=== PATIENT | male | born 1940 | race Caucasian/White ===

== ENCOUNTER 2018-12-03 08:05 | Observation (INO) | payer OTHER, SELFPAY ==
[2018-12-03] VITALS (11 sets, daily range): BP systolic 146–184; BP diastolic 75–95; PULSE 58–84; RESP 12–20; TEMP 36.5–37.2; O2SAT 96–100; BMI 20.7
--- NOTE | 2018-12-03 08:29 | ED.ABDPAIN ---
HPI - Abdominal Pain General Chief Complaint: Abdominal Pain Stated Complaint: LLQ abd pain/back pain today Time Seen by Provider: 12/03/18 08:29 Source: patient and family Limitations: no limitations History of Present Illness HPI narrative: This is a 78-year-old male comes emergency department with sudden onset of left lower quadrant and flank pain. Patient states he was on his morning walk about 5:00 a.m. this morning when he noticed pain in his left lower quadrant. No radiating to the left flank. He states it was pretty quick onset, it has been constant maybe a little bit of waxing and waning but mostly a constant pain at 7-8. Patient states he tried sitting and lying down but that did not improve his symptoms. Walking actually helped a little bit but only minimally. Patient has not any had any fevers or chills. He felt a little nauseated at home but no vomiting. He states he has not had a bowel movement 2 or 3 days but he typically goes to the bathroom every 2-3 days. He typically has chronic constipation. He is denying passing any gas currently. He does not feel distended. Patient has not noticed any issues with urination, no hematuria, color changes, frequency or urgency or dysuria. Patient does have no Parkinson's, he takes carbidopa levodopa, clonazepam as well as residual eating. He has had Botox. 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 By his description it sounds like they took a portion of the kidney out. He denies any other prior surgeries. Allergic to tetracyclines. Denies any tobacco, occasional alcohol, no illicit his primary care is Dr. Mata and his neurologist is Dr. Ng. Related Data Home Medications Medication Instructions Recorded Confirmed multivitamin 1 cap PO DAILY #0 08/01/06 12/03/18 ascorbic acid (vitamin C) [Vitamin 500 mg PO DAILY 12/03/18 12/03/18 C] carbidopa-levodopa 1 tab PO QID 12/03/18 12/03/18 clonazepam 0.5 mg PO QPM 12/03/18 12/03/18 rasagiline 1 mg PO DAILY 12/03/18 12/03/18 Allergies Allergy/AdvReac Type Severity Reaction Status Date / Time Tetracyclines Allergy Unknown Verified 12/03/18 16:26 Review of Systems Review of Systems ROS Unobtainable: All systems reviewed & are unremarkable except as noted in HPI and below Constitutional Denies chills, Denies fever(s), Denies lethargy and Denies weakness Gastrointestinal Gastrointestinal: Reports abdominal pain (LLQ), Denies melena, Denies hematochezia, Denies change in bowel habits, Reports constipation, Denies cramping, Denies diarrhea, Reports nausea and Denies vomiting Genitourinary Reports as per HPI, Denies hematuria, Denies difficulty urinating, Reports flank pain (left), Denies urinary frequency, Denies urinary hesitancy, Denies urinary incontinence and Denies urinary urgency Musculoskeletal Denies back pain Neurologic Denies weakness [facility] Medical History (Updated 12/03/18 @ 13:03 by Francheska Ford DO) Parkinson disease (Chronic) Surgical History (Updated 12/03/18 @ 08:43 by Francheska Ford DO) History of kidney surgery (Chronic) Social History (Updated 12/03/18 @ 08:43 by Francheska Ford DO) household members: spouse Smoking Status: Former smoker alcohol intake: current substance use type: does not use Social History (Updated 12/03/18 @ 08:43 by Francheska Ford DO) household members: spouse Smoking Status: Former smoker alcohol intake: current substance use type: does not use Exam Narrative Exam Narrative: GENERAL: Alert and oriented x three, then elderly male in mild distress. HEENT: Head normocephalic, atraumatic, EOMI, pupils reactive, face symmetric, moist mucous membranes NECK: Supple, full range of motion CARDIOVASCULAR: Regular rate and rhythm without murmurs, rubs or gallops. RESPIRATORY: Breath sounds equal bilaterally, no wheezes rales or rhonchi. ABDOMEN: Soft, nontender. Nondistended. Normoactive bowel sounds all 4 quadrants. No guarding or rebound, rigidity, no mass. On rectal exam no BRB, no stool noted on exam. : No CVA tenderness EXTREMITIES: Normal range of motion, no clubbing or edema. Neurovascularly intact NEUROLOGICAL: Cranial nerves II through XII grossly intact. Moving all extremities. Patient has mild tremor of upper extremities noted. SKIN: Warm, dry, no petechiae, no rashes or lesions. Initial Vital Signs Initial Vital Signs: Vital Signs Temperature 97.7 F 12/03/18 08:25 Pulse Rate 67 12/03/18 08:25 Respiratory Rate 15 12/03/18 08:25 Blood Pressure 176/82 H 12/03/18 08:25 Pulse Oximetry 100 12/03/18 08:25 Course Orders Ordered: ED Orders 12/03/18 17:37 Consult to Dietitian, Adult Routine Sodium Chloride (Normal Saline 0.9%) 1,000 mls @ 150 mls/hr IV CONT ROSA Last Infusion: 12/03/18 17:08 Dose: 150 mls/hr Admin: 12/03/18 14:15 Dose: 150 mls/hr Discontinued Medications Sodium Chloride (Normal Saline 0.9%) 1,000 mls @ 1,000 mls/hr IV BOLUS ONE Stop: 12/03/18 09:37 Last Infusion: 12/03/18 10:56 Dose: 0 mls/hr Admin: 12/03/18 09:47 Dose: 1,000 mls/hr Ketorolac Tromethamine (Toradol) 15 mg IV NOW ONE Stop: 12/03/18 08:39 Last Admin: 12/03/18 09:46 Dose: 15 mg Magnesium Citrate (Magnesium Citrate) 300 ml PO NOW ONE Stop: 12/03/18 12:53 Last Admin: 12/03/18 12:58 Dose: 300 ml Mineral Oil (Mineral Oil Enema) [address] NOW ONE Stop: 12/03/18 11:22 Last Admin: 12/03/18 11:51 Dose: 1 each Morphine Sulfate (Morphine) 4 mg IV NOW ONE Stop: 12/03/18 09:34 Last Admin: 12/03/18 09:46 Dose: 4 mg Morphine Sulfate (Morphine) 4 mg IV NOW ONE Stop: 12/03/18 10:22 Last Admin: 12/03/18 10:27 Dose: 4 mg Morphine Sulfate (Morphine) 4 mg IV NOW ONE Stop: 12/03/18 12:53 Last Admin: 12/03/18 12:58 Dose: 4 mg Ondansetron HCl (Zofran) 4 mg IV NOW ONE Stop: 12/03/18 09:20 Last Admin: 12/03/18 09:46 Dose: 4 mg Sennosides (Senna) 17.2 mg PO NOW ONE Stop: 12/03/18 13:39 Last Admin: 12/03/18 14:25 Dose: 17.2 mg Vital Signs - 8 hr 12/03/18 11:41 12/03/18 12:32 12/03/18 14:34 Pulse Rate 65 60 84 Respiratory Rate 12 13 20 Blood Pressure [Left Arm] 150/78 H 168/79 H 169/89 H Pulse Oximetry 100 100 96 12/03/18 16:14 Pulse Rate 76 Respiratory Rate 14 Blood Pressure [Left Arm] 164/95 H Pulse Oximetry 100 MDM - Abdominal Pain Lab Data Attestation: I reviewed the patient's lab results. Result diagrams: 12/03/18 09:17 12/03/18 10:08 Lab Results 12/03/18 12/03/18 Range/Units 09:17 10:08 WBC 5.9 (4.5-11.0) X10^3/uL RBC 4.08 L (4.5-5.9) X10^6/uL Hgb 13.2 L (13.5-17.5) g/dL Hct 38.9 L (41-53) % MCV 95.4 (80-100) fL MCH 32.5 (26-34) PG MCHC 34.1 (30-36) % RDW 13.1 (11.6-14.8) % Plt Count 266 (150-400) X10^3/uL Neut % (Auto) 72.6 (50-75) % Lymph % (Auto) 14.9 L (25-40) % [place] % (Auto) 8.1 (3-14) % Eos % (Auto) 3.7 (2-4) % Baso % (Auto) 0.7 (0-2) % Neut # (Auto) 4300 (9486-0477) /uL Lymph # (Auto) 900 L (2287-0002) /uL [place] # (Auto) 500 (0-900) /uL Eos # (Auto) 200 (0-450) /uL Baso # (Auto) 0 (0-100) /uL Sodium 141 (137-145) mmol/L Potassium 4.3 (3.4-5.1) mmol/L Chloride 104 (98-107) mmol/L Carbon Dioxide 27 (22-32) mmol/L BUN 18 (9-20) mg/dL Creatinine 0.70 (0.66-1.25) mg/dL Estimated GFR > 60.0 (>60) mL/min BUN/Creatinine Ratio 25.7 H (6-22) Glucose 145 H (80-110) mg/dL Calcium 9.3 (8.4-10.2) mg/dL Total Bilirubin 0.6 (0.2-1.3) mg/dL AST 28 (17-59) IU/L ALT 15 L (21-72) IU/L Alkaline Phosphatase 80 (38-126) U/L Total Protein 7.2 (6.3-8.2) g/dL Albumin 4.0 (3.5-5.0) g/dL Globulin 3.2 (1.7-4.1) g/dL Albumin/Globulin Ratio 1.3 (1.0-2.8) Lipase 13 L (23-300) U/L Imaging Data CT scan - abdomen: Radiologist's impression: [place] [address] CT Scan Report Signed Patient: Christian Sena LMR#: [id number] : 2Acct:[id number] Age/Sex: 78 / MDate of Service: 12/03/18 Loc: ED Accession Number: [id number] Procedure: CT kidney ureter bladder (KUB) Ordering Provider: Francheska Ford D.O. PROCEDURE: CT KIDNEY URETER BLADDER (KUB) INDICATIONS: LLQ and Left flank pain sudden onset, hx of kidney sx remote TECHNIQUE: Noncontrast 5 mm thick sections acquired from the diaphragms to the symphysis. 5 mm thick coronal and sagittal reformats were then performed. For radiation dose reduction, the following was used: automated exposure control, adjustment of mA and/or kV according to patient size. COMPARISON: None. FINDINGS: Image quality: Excellent. Lung bases: Lung bases are clear except for a small scattered foci of calcific radiodensity in the left lower lobe just above the diaphragm, possibly old granulomatous disease sequela or even aspiration of barium from the distant past.. Heart size is normal. Urinary system: Both kidneys are normal in size. No kidney stones. No hydronephrosis or perinephric fat stranding. On the left there are several small peripelvic cysts. Both ureters appear non-dilated throughout their expected courses. Bladder wall thickness is normal; no calcified bladder stones. Other solid organs: Liver is normal in size. Gallbladder appears normal. Pancreas is normal in contours. Spleen is normal in size. No adrenal nodules. Peritoneum and bowel: Unenhanced bowel loops demonstrate normal wall thickness and caliber. No free fluid or air. Note is made of mild to moderate colonic obstipation. Nodes and vessels: No retroperitoneal or mesenteric adenopathy by size criteria. Aorta and inferior vena cava are normal in caliber. Abdominal wall: No ventral hernias. Pelvis: No free pelvic fluid. No inguinal hernias or adenopathy. Bones: No suspicious bony lesions. No vertebral body compression fractures. IMPRESSION: No urinary tract stone is seen. No hydronephrosis or nephrolithiasis is found. Several small peripelvic cysts are present at the left renal sinus fat. Incidental mode is made of mild to moderate colonic obstipation. Dictated by: Kiran Serna M.D. on 12/03/2018 at 9:19 Approved by: Kiran Serna M.D. on 12/03/2018 at 9:25 MDM Narrative Medical decision making narrative: Patient comes in with acute lower abdominal pain that is now towards his flank. Patient states that pain was not improved with Toradol, had some improvement with morphine x2 doses but was present and started returning. We did do an enema which was not successful and discussed trying some magnesium citrate. Patient did have emesis initially here in the department. Patient's CT scan does show obstipation, lab work showed a mild anemia which appears close to baseline as well as glucose 145. Patient has not given a urine sample thus far. On rectal exam I was not able to palpate any stool and patient has had difficulty with controlling his pain. According to him and his he did actually have an episode that required hospitalization with multiple enemas and then had episode where he and finally had a bowel movement. He has had issues with constipation which is likely related to autonomic dysfunction with his Parkinson's disease. I spoke with a Dr. Lake the hospitalist, who asks for Senna po in department, patient just received magnesium citrate if he is not able to have a bowel movement after several hours she will admit for obstipation. Discharge Plan Departure Patient Disposition: Admitted as Observation Clinical Impression: Abdominal pain, Obstipation Discharge Date/Time: 12/03/18 17:17 Interventions: ED Discharge Assessment Last Done: 12/03/18 17:09 Referrals: Joel Mata MD [Primary Care Provider] - Admit Date/Time: 12/03/18 16:20 Admit Provider: Cathy Lake
--- NOTE | 2018-12-03 08:48 | DI.CT.S_ITS ---
PROCEDURE: CT KIDNEY URETER BLADDER (KUB) INDICATIONS: LLQ and Left flank pain sudden onset, hx of kidney sx remote TECHNIQUE: Noncontrast 5 mm thick sections acquired from the diaphragms to the symphysis. 5 mm thick coronal and sagittal reformats were then performed. For radiation dose reduction, the following was used: automated exposure control, adjustment of mA and/or kV according to patient size. COMPARISON: None. FINDINGS: Image quality: Excellent. Lung bases: Lung bases are clear except for a small scattered foci of calcific radiodensity in the left lower lobe just above the diaphragm, possibly old granulomatous disease sequela or even aspiration of barium from the distant past.. Heart size is normal. Urinary system: Both kidneys are normal in size. No kidney stones. No hydronephrosis or perinephric fat stranding. On the left there are several small peripelvic cysts. Both ureters appear non-dilated throughout their expected courses. Bladder wall thickness is normal; no calcified bladder stones. Other solid organs: Liver is normal in size. Gallbladder appears normal. Pancreas is normal in contours. Spleen is normal in size. No adrenal nodules. Peritoneum and bowel: Unenhanced bowel loops demonstrate normal wall thickness and caliber. No free fluid or air. Note is made of mild to moderate colonic obstipation. Nodes and vessels: No retroperitoneal or mesenteric adenopathy by size criteria. Aorta and inferior vena cava are normal in caliber. Abdominal wall: No ventral hernias. Pelvis: No free pelvic fluid. No inguinal hernias or adenopathy. Bones: No suspicious bony lesions. No vertebral body compression fractures. IMPRESSION: No urinary tract stone is seen. No hydronephrosis or nephrolithiasis is found. Several small peripelvic cysts are present at the left renal sinus fat. Incidental mode is made of mild to moderate colonic obstipation. Dictated by: Kiran Serna M.D. on 12/03/2018 at 9:19 Approved by: Kiran Serna M.D. on 12/03/2018 at 9:25
[2018-12-03 09:32] LABS: Add Manual Diff / Slide Review NO; Basophils Absolute Auto 0 /uL (0-100); Basophils Percent Auto 0.7 % (0-2); Eosinophils Absolute Auto 200 /uL (0-450); Eosinophils Percent Auto 3.7 % (2-4); Hematocrit 38.9 % (41-53); Hemoglobin 13.2 g/dL (13.5-17.5); Lymphocytes Absolute Auto 900 /uL (1100-4500); Lymphocytes Percent Auto 14.9 % (25-40); Mean Corpuscular HGB Conc 34.1 % (30-36); Mean Corpuscular Hemoglobin 32.5 PG (26-34); Mean Corpuscular Volume 95.4 fL (80-100); Monocytes Absolute Auto 500 /uL (0-900); Monocytes Percent Auto 8.1 % (3-14); Neutrophils Absolute Auto 4300 /uL (1500-7000); Neutrophils Percent Auto 72.6 % (50-75); Platelet Count 266 X10^3/uL (150-400); Red Blood Cell Count 4.08 X10^6/uL (4.5-5.9); Red Cell Distribution Width 13.1 % (11.6-14.8); White Blood Cell Count 5.9 X10^3/uL (4.5-11.0)
[2018-12-03] MEDS: KETOROLAC 60 MG/2 ML VIAL 15 MG IV (09:46)
[2018-12-03] MEDS: MORPHINE 4 MG/ML INJ IV ×3 (09:46→12:58)
[2018-12-03] MEDS: ONDANSETRON 4 MG/2 ML INJ IV (09:46)
[2018-12-03] MEDS: SODIUM CHLORIDE 0.9% 1,000 ML 1000 ML IV (09:47)
[2018-12-03 10:27] LABS: Alanine Aminotransferase 15 IU/L (21-72); Albumin Globulin Ratio 1.3 (1.0-2.8); Alkaline Phosphatase 80 U/L (38-126); Aspartate Aminotransferase 28 IU/L (17-59); BUN Creatinine Ratio 25.7 (6-22); Bilirubin Total 0.6 mg/dL (0.2-1.3); Blood Urea Nitrogen 18 mg/dL (9-20); Calcium 9.3 mg/dL (8.4-10.2); Carbon Dioxide 27 mmol/L (22-32); Chloride 104 mmol/L (98-107); Estimated Glomerular Filt Rate > 60.0 mL/min (>60); Globulin 3.2 g/dL (1.7-4.1); Glucose 145 mg/dL (80-110); HEMOLYSIS < 15 (0-50); Lipase 13 U/L (23-300); Potassium 4.3 mmol/L (3.4-5.1); Sodium 141 mmol/L (137-145); Total Protein 7.2 g/dL (6.3-8.2)
[2018-12-03] MEDS: MINERAL OIL 1 EACH ENEMA PR (11:51)
[2018-12-03] MEDS: MAGNESIUM CITRATE 300 ML SOLUTION PO (12:58)
[2018-12-03] MEDS: SODIUM CHLORIDE 0.9% 1,000 ML 150 ML IV ×2 (14:15→21:57)
[2018-12-03] MEDS: SENNOSIDES 8.6 MG TABLET 17.2 MG PO (14:25)
--- NOTE | 2018-12-03 17:47 | PC.NURSE ---
Addendum entered by Nella Abbott R.N. 12/03/18 22:33: LITO Beck in to see patient. Pt provided with clear liquids as per verbal order. Dulcolax suppository inserted with brief digital stim as per LITO Beck's verbal order. No stool felt in rectum. Active bowel tones. Pt positions self in bed without difficulty. Tylenol and toradol to manage back and abdominal pain 5/10. No further c/o nausea. Addendum entered by Nella Abbott R.N. 12/03/18 21:26: Discussion with PIER HAND to inform pt has not had any results with 500 cc's soap suds enema. Pt desires hs med clonazepam. Verbal order obtained for sleep med as well as suppository. Plan per LITO Beck is to let all interventions just set and see if result is forthcoming. Addendum entered by Nella Abbott R.N. 12/03/18 21:04: No stool. No further emeis. Resting quietly in bed with eyes closed without signs of distress or discomfort. Addendum entered by Nella Abbott R.N. 12/03/18 20:10: Pt reports beginning to feel stirring in rectum/colon. Offered to assist pt to commode and pt reports prefers to wait a few more minutes. Addendum entered by Nella Abbott R.N. 12/03/18 19:51: Pt with 100 cc's bileous emesis. Pt's now present in room. Both parties express desire for some intervention to treat pt's symptoms. This selling underwriter approached hospitalist to inquire about treatment for LLQ pain. Verbal order by Dr. Lake to administer soaps suds enema. This was explained to pt and pt's spouse. Pt on left side in bed and slowly administered approximately 500 cc's castile soap warm water enema. Pt denies feeling any fullness or need to evacuate bowels. This selling underwriter stopped procedure and will discuss with hospitalist when pt is seen this evening shift. Warm blankets to LLQ. Awaiting further orders and provider to see pt. Original Note: Pt to room 228 from E.R. awake, alert, conversant. Parkinsonian tremors present to hands BL. IV fluids infusing to left forearm as per E.R. Pt admits to LLQ pain 3/10 and sense of fullness to abdomen, Like I ate a turkey dinner. Admits to occasional fleeting nausea. Head of bed elevated. Oriented to call light and to fall precautions while in the hospital. Pt anticipates spouse to arrive @ 1830. Awaiting further orders by Dr. Lake.
--- NOTE | 2018-12-03 21:43 | P.HP_ITS ---
History of Present Illness Date Patient Seen: 12/03/18 Time Patient Seen: 21:43 Chief complaint: llq abd pain/back pain today Narrative: Mr. Christian Fisher is an 78-year-old male with a history of Parkinson's disease and chronic constipation who presents today with abdominal pain and obstipation. The patient has a history of constipation secondary to his Parkinson's disease and states he typically will have bowel movements every 3 days. He states when he does pass stool that it presents as hard balls. He states that he has not had a bowel movement for 3 days and developed abdominal pain this morning as he went for his usual morning walk. He had associated nausea but denies fevers or chills, orthostasis, difficulty urinating, hematuria or or bleeding per rectum. Upon returning from his walk he told his he had to go to the ER due to the abdominal pain. Describes it as sharp and achy in the left lower quadrant radiating to the left flank. Nothing seems to make it better or worse. He otherwise describes no recent illness or other complaints of pain. He has no chest pain or palpitations, shortness of breath cough or wheezing. Upon arrival in the ER the patient was afebrile with temperature 97.7?, heart rate of 67, blood pressure 176/82, respirations of 15 saturating 100% on room air. He underwent CT exam which found no kidney or ureteral stones, no hydrone phrosis, normal bowel wall without signs of inflammation, free air or fluid. It does note mild to moderate constipation. Laboratory analysis has a negative white count at 5.9, hemoglobin of 13.2, hematocrit of 38.9, platelets of 266. His electrolytes are all within normal limits and he has a BUN of 18 and creatinine is 0.7. In the ER the patient received a mineral oil enema and Dulcolax suppository as well as multiple doses of morphine for pain. The patient is admitted to the hospital for continuing abdominal pain secondary to obstipation. Patient History Medical History (Updated 12/04/18 @ 03:44 by LITO Wallace) Chronic constipation (Acute) Parkinson disease (Chronic) Surgical History (Updated 12/04/18 @ 03:44 by LITO Wallace) History of appendectomy (Acute) History of ear surgery (Acute) History of knee surgery (Acute) History of kidney surgery (Chronic) Social History (Updated 12/03/18 @ 08:43 by Francheska Ford DO) household members: spouse Smoking Status: Former smoker alcohol intake: current substance use type: does not use Family & Social History Social History: household members spouse Prior Living Arrangements House Safety & Behavioral: Feels Safe in Current Yes Environment Been Physically Hurt or No Threatened By a Person Suicidal Ideation Description None Suicide Plan Description No Plan Tobacco & Substance use: Smoking Status Former smoker alcohol intake current alcohol intake frequency a few times a week Substance Use Type does not use Comment: The patient lives in a single family home with his to whom he has been for 57 years. His father at the age 92 with a history of coronary artery disease, CABG and valve replacement. His mother in 1977 from a motor vehicle accident. He has a half brother and half sister and 2 kids he describes as in good health. 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 Smoking: The patient has never smoked. Alcohol: Patient endorses 1-2 beers per week. Substance use: The patient denies recreation pharmaceuticals her, herbal or cannabis products. Advanced directives: Patient states he does have an advanced directive and he states his desired to be DO NOT RESUSCITATE. He designates his Roxana to be his surrogate decision maker. Meds Home Medications Medication Instructions Recorded Confirmed Type multivitamin 1 cap PO DAILY #0 08/01/06 12/03/18 History ascorbic acid (vitamin C) [Vitamin 500 mg PO DAILY 12/03/18 12/03/18 History C] carbidopa-levodopa 1 tab PO QID 12/03/18 12/03/18 History clonazepam 0.5 mg PO QPM 12/03/18 12/03/18 History rasagiline 1 mg PO DAILY 12/03/18 12/03/18 History Allergies Allergy/AdvReac Type Severity Reaction Status Date / Time Tetracyclines Allergy Unknown Verified 12/03/18 16:26 Review of Systems Review of Systems All systems reviewed & are unremarkable except as noted in HPI and below Exam Vital Signs (past 8 hours): - 12/03/18 14:34 12/03/18 16:14 12/03/18 20:10 Temperature 98.9 F Pulse Rate 84 76 63 Respiratory Rate 20 14 18 Blood Pressure 167/75 H Blood Pressure [Left Arm] 169/89 H 164/95 H Pulse Oximetry 96 100 100 Oxygen Delivery Method Room Air Narrative Exam Narrative: GENERAL APPEARANCE: well developed, well nourished, uncomfortable appearing HEAD: Masked facies, atraumatic. EYES: pupils equal, round, reactive to light and accommodation, sclera non-ic teric, extraocular movement intact without nystagmus. EARS: normal external structures, no ear pain NOSE: sinuses non tender to percussion, no rhinorrhea ORAL CAVITY: mucosa moist without lesions, palate normal, tongue in midline. THROAT: normal, no erythema, no exudate, posterior pharynx normal. NECK/THYROID: neck supple, no jugular venous distention, no carotid bruit, no thyromegaly, trachea midline. LYMPH NODES: no cervical or supraclavicular lymphadenopathy. SKIN: warm and dry, no suspicious lesions, no rashes, good turgor. HEART: regular rate and rhythm, S1-S2 without murmur, no rubs or gallops, brisk capillary refill, no edema LUNGS: clear to auscultation bilaterally, no coarseness crackles or wheezing, no cough present CHEST: Symmetrical movement, good tidal volume, no accessory muscle use. ABDOMEN: Firm, distended, generalized tenderness to palpation, greatest left lower quadrant, no guarding or peritoneal signs, no organomegaly, no flank or suprapubic tenderness, hyperactive bowel tones. BACK: Normal curvature, nontender to palpation, no CVA tenderness on percussion EXTREMITIES: Moves all extremities strength is 5/5 and symmetrical, no deformities or joint effusions. NEUROLOGIC: AAO x4, bradykinesia, cranial nerves II-XII grossly intact , slower speech, tremors bilateral upper extremities left greater than right, motor strength normal upper and lower extremities, sensory exam intact to light touch PSYCH: alert, cognitive function intact, good eye contact, appropriate with stable behavior Objective Labs Result Diagrams: 12/03/18 09:17 12/03/18 10:08 Labs: Laboratory Results - last 24 hr 12/03/18 12/03/18 09:17 10:08 WBC 5.9 RBC 4.08 L Hgb 13.2 L Hct 38.9 L MCV 95.4 MCH 32.5 MCHC 34.1 RDW 13.1 Plt Count 266 Neut % (Auto) 72.6 Lymph % (Auto) 14.9 L [place] % (Auto) 8.1 Eos % (Auto) 3.7 Baso % (Auto) 0.7 Neut # (Auto) 4300 Lymph # (Auto) 900 L [place] # (Auto) 500 Eos # (Auto) 200 Baso # (Auto) 0 Sodium 141 Potassium 4.3 Chloride 104 Carbon Dioxide 27 BUN 18 Creatinine 0.70 Estimated GFR > 60.0 BUN/Creatinine Ratio 25.7 H Glucose 145 H Calcium 9.3 Total Bilirubin 0.6 AST 28 ALT 15 L Alkaline Phosphatase 80 Total Protein 7.2 Albumin 4.0 Globulin 3.2 Albumin/Globulin Ratio 1.3 Lipase 13 L Assessment & Plan Assessment & Plan narrative: This is a 78-year-old male with history of Parkinson's and chronic constipation who presents with abdominal pain secondary to obstipation failing treatment with enema and laxatives in the emergency dep artment. 1. Acute abdominal pain, present on admission. -onset of pain was this morning while walking, left lower quadrant radiating to left flank, associated nausea without vomiting, no BM for 3 days (his usual pattern). -CT exam finds no renal complication of kidney or ureteral stone, no hydronep hrosis nephrosis, no bowel obstruction or inflammation, no free air or fluid, mild to moderate constipation noted. -in the ER the patient was hydrated with normal saline, received Toradol IV, Mag citrate, mineral oil enema, senna p.o., 3 doses of morphine 4 mg each, Zofran for nausea. -will continue hydration with normal saline S the patient was dehydrated the BUN creatinine ratio 25.7. -soap suds enema ordered, docusate 100 mg twice daily, Doculax suppository if no production from enema with digital stimulation. -will avoid opiates to prevent further suppression of gastric motility. 2. Chronic Parkinson's disease, stable. -patient is quite functional and ambulates daily and reports no falls. He manifests masked face ease and tremors but has no evidence of impaired swallowing. -continue patient's home medication of carbidopa levodopa 4 times daily and rasagiline 1 mg daily. The patient is admitted to the hospital related to persistent abdominal pain and constipation refractory to enema and multiple laxatives. The patient is admitted as observation with expected length of stay to be less than 2 midnights. Scores GCS Isael coma scale eye opening: Spontaneous [place] coma scale verbal response: Orientated [place] coma scale motor response: Obey commands Isael coma scale total score: 15 Quality VTE Deep Vein Thrombosis/Pulmonary Embolism Present on Admission: No
[2018-12-03] MEDS: BISACODYL 10 MG SUPP PR (21:58)
[2018-12-03] MEDS: clonazePAM 0.5 MG TABLET PO (21:58)
[2018-12-03] MEDS: ACETAMINOPHEN 325 MG TABLET 975 MG PO (21:58)
[2018-12-03] MEDS: CARBIDOPA-LEVODOPA 25/100 TABLET 1 EACH PO (22:18)
[2018-12-03] MEDS: KETOROLAC 30 MG/ML VIAL IV (22:19)
[2018-12-03 22:36] LABS: Bacteria Urine None Seen; RBC Urine None Seen (0-5/HPF)
[2018-12-03 22:38] LABS: Appearance Urine UA CLEAR; Bilirubin Urine UA NEGATIVE (NEGATIVE); Color Urine UA YELLOW; Glucose Urine UA NEGATIVE (Negative); Ketones Urine UA NEGATIVE (NEGATIVE); Leukocyte Esterase Urine UA NEGATIVE (NEGATIVE); Nitrite Urine UA NEGATIVE (Negative); Occult Blood Urine UA NEGATIVE (Negative); Protein Urine UA NEGATIVE (Negative); Urobilinogen Urine UA 0.2 E.U./dL (0.2); pH Urine UA 6.5 (4.5-8.0)
[2018-12-03 22:47] LABS: Culture Indicated Urine Cult Not Indicated; Mucus Urine 2+ (Negative); Squamous Epithelial Cell Urine 0-1 /HPF (0-5/HPF); WBC Urine 0-1/HPF (0-5/HPF)
[2018-12-04 00:10] VITALS: O2SAT 97
--- NOTE | 2018-12-04 01:24 | PC.NURSE ---
City Clerk Note: 0030: Awake, resting in bed. Vital signs stable. IV in place in lt forearm, with NS infusing at 150cc/hr. Assisted up to bathroom, had moderate formed stool with some liquid stool. Pt is alert, oriented X3.
[2018-12-04 04:40] VITALS: BP 140/76; PULSE 70; RESP 16; TEMP 37.1; O2SAT 98
[2018-12-04] MEDS: SODIUM CHLORIDE 0.9% 1,000 ML 150 ML IV (04:43)
[2018-12-04] MEDS: KETOROLAC 30 MG/ML VIAL IV (05:37)
[2018-12-04 05:42] LABS: Add Manual Diff / Slide Review NO; Basophils Absolute Auto 0 /uL (0-100); Basophils Percent Auto 0.3 % (0-2); Eosinophils Absolute Auto 0 /uL (0-450); Hematocrit 37.7 % (41-53); Hemoglobin 13.1 g/dL (13.5-17.5); Lymphocytes Absolute Auto 700 /uL (1100-4500); Lymphocytes Percent Auto 5.9 % (25-40); Mean Corpuscular HGB Conc 34.7 % (30-36); Mean Corpuscular Hemoglobin 32.9 PG (26-34); Mean Corpuscular Volume 94.8 fL (80-100); Monocytes Absolute Auto 800 /uL (0-900); Monocytes Percent Auto 6.2 % (3-14); Neutrophils Absolute Auto 10700 /uL (1500-7000); Neutrophils Percent Auto 87.6 % (50-75); Platelet Count 251 X10^3/uL (150-400); Red Blood Cell Count 3.98 X10^6/uL (4.5-5.9); Red Cell Distribution Width 13.1 % (11.6-14.8); White Blood Cell Count 12.2 X10^3/uL (4.5-11.0)
[2018-12-04 05:49] LABS: HEMOLYSIS < 15 (0-50); Potassium 4.3 mmol/L (3.4-5.1)
[2018-12-04 05:52] LABS: BUN Creatinine Ratio 25.7 (6-22); Blood Urea Nitrogen 18 mg/dL (9-20); Calcium 9.3 mg/dL (8.4-10.2); Carbon Dioxide 28 mmol/L (22-32); Chloride 102 mmol/L (98-107); Estimated Glomerular Filt Rate > 60.0 mL/min (>60); Glucose 142 mg/dL (80-110); Sodium 139 mmol/L (137-145)
[2018-12-04 08:00] VITALS: BP 141/111; PULSE 68; RESP 14; TEMP 37.1; O2SAT 95
[2018-12-04] MEDS: CARBIDOPA-LEVODOPA 25/100 TABLET 1 EACH PO ×2 (08:52→12:40)
[2018-12-04] MEDS: HEPARIN 5,000 UNIT/ML VIAL 5000 UNIT SUBCUT (08:53)
[2018-12-04] MEDS: DOCUSATE 100 MG CAPSULE PO (08:53)
[2018-12-04] MEDS: POLYETHYLENE GLYCOL 3350 17 GM POWD.PACK PO (09:46)
--- NOTE | 2018-12-04 10:47 | PM.DS.1 ---
History of Present Illness Date Patient Seen: 12/03/18 Chief complaint: llq abd pain/back pain today Narrative: Written by Christian MORSE: Mr. Christian Fisher is an 78-year-old male with a history of Parkinson's disease and chronic constipation who presents today with abdominal pain and obstipation. The patient has a history of constipation secondary to his Parkinson's disease and states he typically will have bowel movements every 3 days. He states when he does pass stool that it presents as hard balls. He states that he has not had a bowel movement for 3 days and developed abdominal pain this morning as he went for his usual morning walk. He had associated nausea but denies fevers or chills, orthostasis, difficulty urinating, hematuria or or bleeding per rectum. Upon returning from his walk he told his he had to go to the ER due to the abdominal pain. Describes it as sharp and achy in the left lower quadrant radiating to the left flank. Nothing seems to make it better or worse. He otherwise describes no recent illness or other complaints of pain. He has no chest pain or palpitations, shortness of breath cough or wheezing. Upon arrival in the ER the patient was afebrile with temperature 97.7?, heart rate of 67, blood pressure 176/82, respirations of 15 saturating 100% on room air. He underwent CT exam which found no kidney or ureteral stones, no hydronephrosis, normal bowel wall without signs of inflammation, free air or fluid. It does note mild to moderate constipation. Laboratory analysis has a negative white count at 5.9, hemoglobin of 13.2, hematocrit of 38.9, platelets of 266. His electrolytes are all within normal limits and he has a BUN of 18 and creatinine is 0.7. In the ER the patient received a mineral oil enema and Dulcolax suppository as well as multiple doses of morphine for pain. The patient is admitted to the hospital for continuing abdominal pain secondary to obstipation. Discharge Providers Date of admission: 12/03/18 16:20 Discharge Date: 12/04/18 Primary care physician: Joel Mata MD Consults: 12/03/18 17:37 Consult to Dietitian, Adult Routine Comment: Reason For Exam: aspiration risk per pt and declining appetite 12/03/18 21:46 Consult to Discharge Planning Routine Comment: Discharge provider: Cathy Lake DO Summary Discharge Diagnosis: 1. Acute on chronic constipation, present on admission. Resolved. 2. Parkinson's disease, chronic, present on admission. Stable. Hospital Course: Christian Fisher is an 78-year-old male with a past medical history significant for Parkinson's disease and chronic constipation who presented with abdominal pain and obstipation. 1. Acute on chronic constipation, present on admission. Resolved. -Patient presented with left lower quadrant abdominal pain radiating to left flank with associated nausea and without vomiting with constipation and no BM for 3 days (reported usual bowel pattern). -CT demonstrated no renal complication of kidney or ureteral stone, no hydronephrosis nephrosis, no bowel obstruction or inflammation, no free air or fluid. Mild to moderate constipation noted. -In the ED the patient received 1 L NS and normal saline at 150 mL/hr until adequately hydrated then discontinued; Toradol 15 IV x 1 and morphine 4 mg IV x 3 for pain; magnesium citrate 300 mg x 1, mineral oil enema x 1, and senna 8.6 mg x 1 for constipation without relief; Zofran for nausea. Avoided further opiates to prevent suppression of gastric motility and worsening constipation. -Once admitted the patient received a soap suds enema and dulcolax suppository with large BM. Continued bowel regimen with docusate 100 mg twice daily and miralax 17 g daily with instructions to escalate or descalate depending on BM frequenct and consistency. 2. Parkinson's disease, chronic, present on admission. Stable. -Patient is quite functional with bike riding and walking daily without falls. He manifests masked facies and tremors but has no evidence of impaired swallowing. -Continued home medication of carbidopa/levodopa 4 times daily, clonazepam 0.5 mg daily at bedtime, and rasagiline 1 mg daily. Exam Vital Signs (past 8 hours): - 12/04/18 04:40 12/04/18 08:00 Temperature 98.7 F 98.8 F Pulse Rate 70 68 Respiratory Rate 16 14 Blood Pressure 140/76 141/111 H Pulse Oximetry 98 95 Oxygen Delivery Method Room Air Oxygen Flow Rate 0 Narrative Exam Narrative: General: Elderly thin gentleman sitting in bed and in no acute distress, appears older than stated age, well-developed, well-nourished, appropriately interactive. HEENT: Normocephalic, atraumatic. External ears without defect. Pupils equal, round, and reactive to light. Anicteric sclerae, moist conjunctivae, and no lid lag. Oropharynx free of erythema and cobble stoning with moist mucosa. Neck: Supple with full range of motion. No jugular venous distension. No lymphadenopathy or thyromegaly. Cardiovascular: Regular rate and rhythm without murmurs, rubs, or gallops appreciated Pulmonary: Clear to auscultation bilaterally without crackles, wheezes, or rhonchi. Normal respiratory effort with no use of accessory muscles. Abdomen: Soft, bowel sounds present,nontender, nondistended. No hepatosplenomegaly or masses appreciated. Extremities: No clubbing, cyanosis, or edema. Skin: Normal temperature, turgor, and texture; no rash, ulcers, or subcutaneous nodules appreciated. Neurological: Cranial nerves grossly intact. Mild tremor. Masked facies. Psychiatric: Normal mood and flat affect. Alert and oriented to person, place, and time. Objective Labs Result Diagrams: 12/04/18 05:10 12/04/18 05:10 Labs: Laboratory Results - last 24 hr 12/03/18 12/04/18 12/04/18 19:00 05:10 05:10 WBC 12.2 H D RBC 3.98 L Hgb 13.1 L Hct 37.7 L MCV 94.8 MCH 32.9 MCHC 34.7 RDW 13.1 Plt Count 251 Neut % (Auto) 87.6 H Lymph % (Auto) 5.9 L [place] % (Auto) 6.2 Eos % (Auto) 0.0 L Baso % (Auto) 0.3 Neut # (Auto) 01002 H Lymph # (Auto) 700 L [place] # (Auto) 800 Eos # (Auto) 0 Baso # (Auto) 0 Sodium 139 Potassium 4.3 Chloride 102 Carbon Dioxide 28 BUN 18 Creatinine 0.70 Estimated GFR > 60.0 BUN/Creatinine Ratio 25.7 H Glucose 142 H Calcium 9.3 Magnesium 2.0 Urine Color Yellow Urine Appearance Clear Urine pH 6.5 Ur Specific [place] 1.020 Urine Protein Negative Urine Glucose (UA) Negative Urine Ketones Negative Urine Occult Blood Negative Urine Nitrate Negative Urine Bilirubin Negative Urine Urobilinogen 0.2 Ur Leukocyte Esterase Negative Urine RBC None seen Urine WBC 0-1/hpf Ur Squamous Epith Cells 0-1 /hpf Urine Bacteria None seen Urine Mucus 2+ H Ur Culture Indicated? Cult not indicated Discharge Plan Discharge Plan Patient Disposition: Home Discharge comment: Your being discharged home. You had severe constipation. Please try to stay well hydrated and drink plenty of fluids at least 75 oz a day. Please follow-up with your PCP, Dr. Mata, at your scheduled appointment regarding your hospitalization. The following are recommendations for a continued bowel regimen to avoid constipation (loose stools are preferred): A bowel regimen has been implemented and include: -Colace (stool softener) 100 mg twice a day. -MiraLax (osmotic laxative) 17 g daily. You may increase this up to twice a day or decrease this to every other day or every 3 days depending on bowel movements/consistency. -Senna 8.6 mg daily as needed if not having a bowel movement for 1-2 days. -Bisacodyl suppository 10 mg daily as needed and should be taken if medications are not adequate to have BM or not having a bowel movement. -Mineral oil enema Discharge Med Rec/Prescriptions Prescriptions: New docusate sodium [DOK] 100 mg Capsule 100 mg PO BID Qty: 60 RF: 0 polyethylene glycol 3350 17 gram Powder In Packet 17 gram PO DAILY Qty: 100 RF: 0 sennosides [senna] 8.6 mg tablet 8.6 mg PO DAILY PRN (Reason: constipation) Qty: 30 RF: 0 mineral oil enema 118 ml MA DAILY PRN (Reason: constipation) Qty: 6384 RF: 0 bisacodyl 10 mg suppository 10 mg MA DAILY PRN (Reason: constipation) Qty: 50 RF: 0 Continued multivitamin 1 cap PO DAILY Qty: 0 RF: 0 clonazepam 0.5 mg tablet 0.5 mg PO QPM RF: 0 carbidopa-levodopa 25-100 mg tablet 1 tab PO QID RF: 0 rasagiline 1 mg tablet 1 mg PO DAILY RF: 0 ascorbic acid (vitamin C) [Vitamin C] 500 mg Tablet 500 mg PO DAILY RF: 0 Follow up/Referrals: Joel Mata MD [Primary Care Provider] - 3-5 Days (Discharge summary needs to be faxed over) Provider Discharge Instructions Diet: Diet as Tolerated, Low-fat, Low-sodium and Low-cholesterol Activity: Activity as tolerated Visit Report/Discharge Packet Instructions: DI for Constipation Discharge Data Primary Care Provider: Joel Mata V Attending Provider: Cathy Lake Admit Date/Time: 12/03/18 16:20 Discharges patient from system. Discharge Date/Time: 12/04/18 13:45 Quality VTE Deep Vein Thrombosis/Pulmonary Embolism Present on Admission: No
[2018-12-04 11:55] VITALS: O2SAT 98
[2018-12-04 12:00] VITALS: BP 160/84; PULSE 65; RESP 17; TEMP 37.4; O2SAT 98
--- NOTE | 2018-12-04 15:14 | CM.DANOTE ---
Discharge Planning/Care Management DCP: assessment: case received and discussed in Team Rounds. Dr. Lake noted that pt had dx of obstipation, he was responding well to treatment and she expected him to be able to d/c home today after bowels cleared. He does carry hx of Parkinson's disease but Dr. Lake stated he does well at baseline and is not homebound. Pt is a 78 year old male who admitted yesterday to care of hospitalist team late yesterday afternoon: 1620. Payer: listed as [employer] on face sheet. PCP: Dr. Mata Admission status: OBS: confirmed by UR JULIO C Herrera. Went to room early this afternoon to check in on pt and to continue the DCP assessment process. Noted room empty. DC summary in draft and d/c order in place. JULIO C Cartwright states that pt was cleared for home setting and he left for home with his transporting. He will see Dr. Mata in 3-5 days for followup and has been given new bowel regimen as part of the d/c orders. Advanced directive, confirm from FAMILY Start: 12/03/18 17:38 Freq: Q24H Status: Discharge Protocol: Document 12/04/18 00:10 RAC (Rec: 12/04/18 01:32 RAC [id number]) Advance Directive, confirm on record Time 00:10 Person contacted no family available at this time Copy received No Advanced directive available on record No CM Discharge Assessment Start: 12/04/18 15:12 Freq: Status: Active Protocol: Document 12/04/18 15:12 ITV (Rec: 12/04/18 15:14 ITV [id number]) Discharge Planning Assessment Advance Directives? Yes History Provided By Medical Record Prior Living Arrangements House Household Members spouse Independent with ADL's Yes: per Dr. Lake Is patient alert and oriented? Yes: per Dr. Lake Review Status In Process
== END 2018-12-04 13:45 | disposition home or self-care (01) ==
LOC: ED 08:19 → AC 16:20
PROVIDERS: Nurse Practitioner Adult Health; Admitting Provider Internal Medicine; Emergency Provider Emergency Medicine; PCP Internal Medicine; Visit Provider Internal Medicine
DX: K59.00 Constipation, unspecified (principal); G20 Parkinson's disease
CPT/HCPCS: 36415; 36591; 74176; 80048; 80053; 81001; 83690; 83735; 85025; 96361; 96372; 96374; 96375; 96376; 99284; G0378; J1644; J1885; J2270; J2405

== ENCOUNTER 2018-12-05 10:13 | Inpatient (IN) | payer OTHER, MEDICARE, SELFPAY ==
[2018-12-03 17:25] VITALS: BMI 20.7
[2018-12-05] VITALS (10 sets, daily range): BP systolic 139–192; BP diastolic 69–105; PULSE 72–86; RESP 13–20; TEMP 37.1–38.2; O2SAT 91–98; BMI 21.6
--- NOTE | 2018-12-05 10:45 | ED.ABDPAIN ---
HPI - Abdominal Pain General Chief Complaint: Abdominal Pain Stated Complaint: Bowel Blockage Time Seen by Provider: 12/05/18 10:36 Source: patient and old records reviewed Limitations: no limitations History of Present Illness HPI narrative: Patient is a 78-year-old male with history of Parkinson's who was released from the hospital yesterday after he was admitted overnight for constipation. He says that he never stopped having abdominal pain. He however last night he threw up 3 times in the morning he threw up 3 more times. He now has pickups she has never had before he continues to have abdominal pain. He did have a large bowel movement which the kindly showed me a picture of. It was nonbloody. He has not had any fever. MD complaint: abdominal pain Location: diffuse Quality: cramping Related Data Home Medications Medication Instructions Recorded Confirmed multivitamin 1 cap PO DAILY #0 08/01/06 12/03/18 ascorbic acid (vitamin C) [Vitamin 500 mg PO DAILY 12/03/18 12/03/18 C] carbidopa-levodopa 1 tab PO QID 12/03/18 12/03/18 clonazepam 0.5 mg PO QPM 12/03/18 12/03/18 rasagiline 1 mg PO DAILY 12/03/18 12/03/18 Previous Rx's Medication Instructions Recorded bisacodyl 10 mg WI DAILY PRN #50 each 12/04/18 docusate sodium [DOK] 100 mg PO BID #60 cap 12/04/18 mineral oil 118 ml WI DAILY PRN #6384 ml 12/04/18 polyethylene glycol 3350 17 gram PO DAILY #100 each 12/04/18 sennosides [senna] 8.6 mg PO DAILY PRN #30 tab 12/04/18 Allergies Allergy/AdvReac Type Severity Reaction Status Date / Time Tetracyclines Allergy Unknown Verified 12/03/18 16:26 Review of Systems Review of Systems ROS Unobtainable: All systems reviewed & are unremarkable except as noted in HPI and below Constitutional Denies chills, Denies fever(s), Denies lethargy and Denies weakness Eyes Denies change in vision, Denies eye discharge, Denies irritation and Denies loss of vision Cardiovascular Denies chest pain, Denies irregular heart rhythm, Denies lightheadedness, Denies palpitations, Denies dyspnea, Denies dyspnea on exertion and Denies orthopnea Respiratory Denies cough, Denies dyspnea, Denies dyspnea on exertion and Denies wheezing Gastrointestinal Gastrointestinal: Reports abdominal pain, Reports nausea and Reports vomiting Genitourinary Denies hematuria, Denies flank pain, Denies urinary incontinence and Denies urinary urgency Musculoskeletal Denies back pain, Denies muscle weakness, Denies numbness and Denies tingling Integumentary/Breasts Denies pruritus, Denies erythema, Denies rash and Denies wounds Neurologic Denies loss of vision, Denies numbness, Denies tingling and Denies weakness Endocrine Denies palpitations Allergic/Immunologic Denies wheezing [facility] Medical History (Updated 12/05/18 @ 16:16 by Isabel Martinez RN) Cervical dystonia (Acute) Chronic constipation (Acute) Parkinson disease (Chronic) Surgical History History of appendectomy (Acute) History of ear surgery (Acute) History of knee surgery (Acute) History of kidney surgery (Chronic) Social History household members: spouse Smoking Status: Former smoker alcohol intake: current substance use type: does not use Social History household members: spouse Smoking Status: Former smoker alcohol intake: current substance use type: does not use Exam Initial Vital Signs Initial Vital Signs: Vital Signs Temperature 98.7 F 12/05/18 10:22 Pulse Rate 86 12/05/18 10:22 Respiratory Rate 13 12/05/18 10:22 Blood Pressure 192/94 H 12/05/18 10:22 Pulse Oximetry 98 12/05/18 10:22 GENERAL: Alert elderly male with Parkinson's and in no acute distress. HEENT: Head atraumatic,EOMI, pupils reactive CARDIOVASCULAR: Regular rate and rhythm without murmurs, rubs or gallops. RESPIRATORY: Breath sounds equal bilaterally, no wheezes rales or rhonchi. ABDOMEN: Soft, minimal tenderness decreased bowel sounds EXTREMITIES: Normal range of motion, no clubbing or edema. Neurovascularly intact NEUROLOGICAL: Alert and oriented x4.Normal gait and speech. Resting tremor SKIN: Warm, dry, no laceration, no petechiae, no rashes or lesions. Course Orders Ordered: ED Orders 12/05/18 10:30 Complete Blood Count AUTO DIFF Stat Comprehensive Metabolic Panel Stat Lipase Stat 12/05/18 10:53 XR acute abdomen series Stat 12/05/18 11:38 CT abdomen pelvis w con Stat 12/05/18 13:56 Consult to General Surgery Stat 12/05/18 16:14 Consult to Dietitian, Adult Routine Sodium Chloride (Normal Saline 0.9%) 1,000 mls @ 150 mls/hr IV CONT ROSA Last Infusion: 12/05/18 15:56 Dose: 0 mls/hr Admin: 12/05/18 11:17 Dose: 150 mls/hr Discontinued Medications Mineral Oil (Mineral Oil Enema) 1 each WI NOW ONE Stop: 12/05/18 13:52 Last Admin: 12/05/18 15:55 Dose: Not Given Ondansetron HCl (Zofran) 4 mg IV NOW ONE Stop: 12/05/18 10:54 Last Admin: 12/05/18 11:17 Dose: 4 mg Pantoprazole Sodium (Protonix) 40 mg IV NOW ONE Stop: 12/05/18 10:54 Last Admin: 12/05/18 11:17 Dose: 40 mg Consultations Consultation #1: Dr. Regalado, request NG tube, Enemas, and IV fluids, will consult. Admit to medicine. Time: 13:53 Consultation #2: Dr. Rodrigues, updated patient's symptoms test results agrees is with admission Vital Signs - 8 hr 12/05/18 10:22 12/05/18 10:59 12/05/18 12:14 Temperature 98.7 F Pulse Rate 86 81 72 Respiratory Rate 13 16 15 Blood Pressure 192/94 H Blood Pressure [Left Arm] 190/105 H 191/105 H Pulse Oximetry 98 97 12/05/18 13:00 12/05/18 15:36 12/05/18 15:51 Temperature Pulse Rate 85 85 85 Respiratory Rate 18 18 Blood Pressure 139/75 Blood Pressure [Left Arm] 181/100 H 144/81 H Pulse Oximetry 91 95 MDM - Abdominal Pain Lab Data Attestation: I reviewed the patient's lab results. Result diagrams: 12/05/18 10:30 12/05/18 10:30 Lab Results 12/05/18 12/05/18 Range/Units 10:30 10:30 WBC 11.1 H (4.5-11.0) X10^3/uL RBC 4.24 L (4.5-5.9) X10^6/uL Hgb 13.8 (13.5-17.5) g/dL Hct 40.8 L (41-53) % MCV 96.1 (80-100) fL MCH 32.4 (26-34) PG MCHC 33.7 (30-36) % RDW 13.4 (11.6-14.8) % Plt Count 278 (150-400) X10^3/uL Neut % (Auto) 88.4 H (50-75) % Lymph % (Auto) 4.7 L (25-40) % [place] % (Auto) 6.7 (3-14) % Eos % (Auto) 0.0 L (2-4) % Baso % (Auto) 0.2 (0-2) % Neut # (Auto) 9800 H (9519-6687) /uL Lymph # (Auto) 500 L (5790-3136) /uL [place] # (Auto) 700 (0-900) /uL Eos # (Auto) 0 (0-450) /uL Baso # (Auto) 0 (0-100) /uL Sodium 137 (137-145) mmol/L Potassium 3.8 (3.4-5.1) mmol/L Chloride 96 L (98-107) mmol/L Carbon Dioxide 33 H (22-32) mmol/L BUN 22 H (9-20) mg/dL Creatinine 0.80 (0.66-1.25) mg/dL Estimated GFR > 60.0 (>60) mL/min BUN/Creatinine Ratio 27.5 H (6-22) Glucose 166 H (80-110) mg/dL Calcium 9.8 (8.4-10.2) mg/dL Total Bilirubin 0.6 (0.2-1.3) mg/dL AST 59 (17-59) IU/L ALT 13 L (21-72) IU/L Alkaline Phosphatase 92 (38-126) U/L Total Protein 7.9 (6.3-8.2) g/dL Albumin 4.4 (3.5-5.0) g/dL Globulin 3.5 (1.7-4.1) g/dL Albumin/Globulin Ratio 1.3 (1.0-2.8) Lipase 66 D (23-300) U/L Imaging Data CT scan - abdomen: Radiologist's impression: PROCEDURE: CT ABDOMEN PELVIS W CON INDICATIONS: ? obstruction on CT TECHNIQUE: After the administration of oral and intravenous contrast, 5 mm thick sections acquired from the diaphragms to the symphysis. 5 mm thick coronal and sagittal reformats were performed. For radiation dose reduction, the following was used: automated exposure control, adjustment of mA and/or kV according to patient size. COMPARISON: [facility], CT, CT KIDNEY URETER BLADDER (KUB), 12/03/2018, 8:49. FINDINGS: Image quality: Diagnostic. ABDOMEN: Lung bases: Groundglass attenuation is identified within the left lung base with corresponding calcifications matter orientated asymmetry in bud nodular pattern. These calcifications are unchanged. However, on the groundglass attenuation is new. Heart size is normal. Solid organs: The liver is noted to be slightly hypodense when compared to the spleen. No focal liver lesions are evident. The spleen and adrenals are unremarkable. The kidneys are within normal limits with the exception of mild scarring involving the inferior margin of the right kidney. No solid renal lesions are evident. There is no hydronephrosis. There may be parapelvic cysts on the left. The pancreas is not well evaluated on this examination. However, there is a central calcification identified within a hypoechoic lesion within the region of the body of the pancreas which measures 2.9 x 3.2 cm (image 20, series 2), suspicious for a pancreatic mass. Peritoneum and bowel: There is moderate thickening of the distal wall of the esophagus. The stomach is diffusely distended. The duodenum and much of the proximal small bowel loops are also prominently distended with fluid. The more distal small bowel loops are decompressed. On the more distal small bowel loops within the left lower quadrant there is prominent wall thickening of the spinal loops (image 75, series 2) with prominent edema identified within the adjacent mesentery. Air and stool are seen within the colon. The appendix is not clearly identified. There is a small amount of free fluid within the abdomen. No drainable or loculated fluid collections are evident. No definite free air is appreciated. Nodes and vessels: No retroperitoneal or mesenteric adenopathy. Aorta and inferior vena cava are normal in caliber. There is aortic atherosclerosis. Bones: At least moderate degenerative changes of the imaged spine are present. No acute fractures or suspicious osseous lesions are evident. PELVIS: Genitourinary: Bladder wall thickness is normal. Miscellaneous: A small amount of free fluid is seen within the pelvis. No loculated fluid collections or free air is evident. The prostate appears to be enlarged. Fluid is seen within the right inguinal canal versus the testicle positioned high in the inguinal canal. Bones: No suspicious bony lesions. No acute pelvic fractures are evident. Mild to moderate degenerative changes of the pelvic joints are noted. IMPRESSION: 1. Small bowel obstruction. The transition appears to be within the left pelvis, related to marked thickening of the wall of 2 small bowel loops within this region, suggesting prominent focal enteritis. 2. Free fluid within the abdomen and pelvis is likely reactive. There is no abscess. 3. Apparent mass involving the body of the pancreas. Contrast enhanced MRI utilizing a pancreatic protocol is recommended for further evaluation. 4. Possible mild hepatic steatosis. 5. Groundglass attenuation within the left lung base is suspicious for pneumonia. 6. Thickening of the wall of the distal esophagus may represent esophagitis. 7. Calcifications along the left diaphragm are unchanged and probably are located within the small airways. Dictated by: Eamon Milner M.D. on 12/05/2018 at 12:37 Abdominal x-ray: Radiologist's impression: PROCEDURE: XR ACUTE ABDOMEN SERIES INDICATIONS: pain vomiting constipation TECHNIQUE: One view chest and two views of the abdomen were acquired. COMPARISON: None. FINDINGS: Surgical changes and devices: None. Chest: Calcifications at the left lung base are present. There is no focal consolidation, effusion, or pneumothorax. Mild scarring versus pleural thickening within the lung apices is present. There is aortic atherosclerosis. Heart size is normal. No pleural effusions. No pneumoperitoneum. Abdomen: The few mildly prominent air-filled small bowel loops are identified measuring up to approximately 3.6 cm in diameter that also demonstrate air-fluid levels on the upright images within the left upper quadrant. Air and stool are seen within the colon. No suspicious calcifications. Visualized solid organ contours appear normal. Bones: No suspicious bony lesions. IMPRESSION: Probable developing left upper quadrant small bowel obstruction versus focal ileus. CT may be helpful for better characterization. Dictated by: Eamon Milner M.D. on 12/05/2018 at 10:26 MDM Narrative Medical decision making narrative: Patient is noted to have bowel obstruction on x-ray. CT is ordered and confirms bowel obstruction with transition point. Patient's only previous surgery is appendicitis. Surgery has been consulted at this time treating conservatively with NG an enema. He is still nauseous. The patient will be admitted to inpatient. Discharge Plan Departure Patient Disposition: Admitted As Inpatient Clinical Impression: Bowel obstruction Qualifiers: Intestinal obstruction type: unspecified Intestinal obstruction extent: unspecified extent Qualified Code(s): K56.609 - Unspecified intestinal obstruction, unspecified as to partial versus complete obstruction Discharge Date/Time: 12/05/18 15:58 Interventions: ED Discharge Assessment Last Done: 12/05/18 15:51 Admit Date/Time: 12/05/18 14:07 Admit Provider: Christian Rodrigues
--- NOTE | 2018-12-05 10:53 | DI.RAD.S_ITS ---
PROCEDURE: XR ACUTE ABDOMEN SERIES INDICATIONS: pain vomiting constipation TECHNIQUE: One view chest and two views of the abdomen were acquired. COMPARISON: None. FINDINGS: Surgical changes and devices: None. Chest: Calcifications at the left lung base are present. There is no focal consolidation, effusion, or pneumothorax. Mild scarring versus pleural thickening within the lung apices is present. There is aortic atherosclerosis. Heart size is normal. No pleural effusions. No pneumoperitoneum. Abdomen: The few mildly prominent air-filled small bowel loops are identified measuring up to approximately 3.6 cm in diameter that also demonstrate air-fluid levels on the upright images within the left upper quadrant. Air and stool are seen within the colon. No suspicious calcifications. Visualized solid organ contours appear normal. Bones: No suspicious bony lesions. IMPRESSION: Probable developing left upper quadrant small bowel obstruction versus focal ileus. CT may be helpful for better characterization. Dictated by: Eamon Milner M.D. on 12/05/2018 at 10:26 Approved by: Eamon Milner M.D. on 12/05/2018 at 10:27
[2018-12-05 11:05] LABS: Add Manual Diff / Slide Review NO; Basophils Absolute Auto 0 /uL (0-100); Basophils Percent Auto 0.2 % (0-2); Eosinophils Absolute Auto 0 /uL (0-450); Hematocrit 40.8 % (41-53); Hemoglobin 13.8 g/dL (13.5-17.5); Lymphocytes Absolute Auto 500 /uL (1100-4500); Lymphocytes Percent Auto 4.7 % (25-40); Mean Corpuscular HGB Conc 33.7 % (30-36); Mean Corpuscular Hemoglobin 32.4 PG (26-34); Mean Corpuscular Volume 96.1 fL (80-100); Monocytes Absolute Auto 700 /uL (0-900); Monocytes Percent Auto 6.7 % (3-14); Neutrophils Absolute Auto 9800 /uL (1500-7000); Neutrophils Percent Auto 88.4 % (50-75); Platelet Count 278 X10^3/uL (150-400); Red Blood Cell Count 4.24 X10^6/uL (4.5-5.9); Red Cell Distribution Width 13.4 % (11.6-14.8); White Blood Cell Count 11.1 X10^3/uL (4.5-11.0)
[2018-12-05 11:10] LABS: Albumin 4.4 g/dL (3.5-5.0); Albumin Globulin Ratio 1.3 (1.0-2.8); Alkaline Phosphatase 92 U/L (38-126); Aspartate Aminotransferase 59 IU/L (17-59); BUN Creatinine Ratio 27.5 (6-22); Bilirubin Total 0.6 mg/dL (0.2-1.3); Blood Urea Nitrogen 22 mg/dL (9-20); Calcium 9.8 mg/dL (8.4-10.2); Carbon Dioxide 33 mmol/L (22-32); Chloride 96 mmol/L (98-107); Estimated Glomerular Filt Rate > 60.0 mL/min (>60); Globulin 3.5 g/dL (1.7-4.1); Glucose 166 mg/dL (80-110); HEMOLYSIS < 15 (0-50); Lipase 66 U/L (23-300); Potassium 3.8 mmol/L (3.4-5.1); Sodium 137 mmol/L (137-145); Total Protein 7.9 g/dL (6.3-8.2)
[2018-12-05] MEDS: PANTOPRAZOLE 40 MG VIAL IV (11:17)
[2018-12-05] MEDS: SODIUM CHLORIDE 0.9% 1,000 ML 150 ML IV (11:17)
[2018-12-05] MEDS: ONDANSETRON 4 MG/2 ML INJ IV (11:17)
[2018-12-05 11:23] LABS: Alanine Aminotransferase 13 IU/L (21-72)
--- NOTE | 2018-12-05 11:26 | PC.NURSE ---
states, had 3 meatball size bm today.
--- NOTE | 2018-12-05 11:38 | DI.CT.S_ITS ---
PROCEDURE: CT ABDOMEN PELVIS W CON INDICATIONS: ? obstruction on CT TECHNIQUE: After the administration of oral and intravenous contrast, 5 mm thick sections acquired from the diaphragms to the symphysis. 5 mm thick coronal and sagittal reformats were performed. For radiation dose reduction, the following was used: automated exposure control, adjustment of mA and/or kV according to patient size. COMPARISON: [facility], CT, CT KIDNEY URETER BLADDER (KUB), 12/03/2018, 8:49. FINDINGS: Image quality: Diagnostic. ABDOMEN: Lung bases: Groundglass attenuation is identified within the left lung base with corresponding calcifications matter orientated asymmetry in bud nodular pattern. These calcifications are unchanged. However, on the groundglass attenuation is new. Heart size is normal. Solid organs: The liver is noted to be slightly hypodense when compared to the spleen. No focal liver lesions are evident. The spleen and adrenals are unremarkable. The kidneys are within normal limits with the exception of mild scarring involving the inferior margin of the right kidney. No solid renal lesions are evident. There is no hydronephrosis. There may be parapelvic cysts on the left. The pancreas is not well evaluated on this examination. However, there is a central calcification identified within a hypoechoic lesion within the region of the body of the pancreas which measures 2.9 x 3.2 cm (image 20, series 2), suspicious for a pancreatic mass. Peritoneum and bowel: There is moderate thickening of the distal wall of the esophagus. The stomach is diffusely distended. The duodenum and much of the proximal small bowel loops are also prominently distended with fluid. The more distal small bowel loops are decompressed. On the more distal small bowel loops within the left lower quadrant there is prominent wall thickening of the spinal loops (image 75, series 2) with prominent edema identified within the adjacent mesentery. Air and stool are seen within the colon. The appendix is not clearly identified. There is a small amount of free fluid within the abdomen. No drainable or loculated fluid collections are evident. No definite free air is appreciated. Nodes and vessels: No retroperitoneal or mesenteric adenopathy. Aorta and inferior vena cava are normal in caliber. There is aortic atherosclerosis. Bones: At least moderate degenerative changes of the imaged spine are present. No acute fractures or suspicious osseous lesions are evident. PELVIS: Genitourinary: Bladder wall thickness is normal. Miscellaneous: A small amount of free fluid is seen within the pelvis. No loculated fluid collections or free air is evident. The prostate appears to be enlarged. Fluid is seen within the right inguinal canal versus the testicle positioned high in the inguinal canal. Bones: No suspicious bony lesions. No acute pelvic fractures are evident. Mild to moderate degenerative changes of the pelvic joints are noted. IMPRESSION: 1. Small bowel obstruction. The transition appears to be within the left pelvis, related to marked thickening of the wall of 2 small bowel loops within this region, suggesting prominent focal enteritis. 2. Free fluid within the abdomen and pelvis is likely reactive. There is no abscess. 3. Apparent mass involving the body of the pancreas. Contrast enhanced MRI utilizing a pancreatic protocol is recommended for further evaluation. 4. Possible mild hepatic steatosis. 5. Groundglass attenuation within the left lung base is suspicious for pneumonia. 6. Thickening of the wall of the distal esophagus may represent esophagitis. 7. Calcifications along the left diaphragm are unchanged and probably are located within the small airways. Dictated by: Eamon Milner M.D. on 12/05/2018 at 12:37 Approved by: Eamon Milner M.D. on 12/05/2018 at 12:44
--- NOTE | 2018-12-05 17:29 | P.HP_ITS ---
History of Present Illness Date Patient Seen: 12/05/18 Time Patient Seen: 17:27 Chief complaint: Bowel Blockage Narrative: Christian Hannah a 78-year-old male with past medical history [place] son's disease well controlled on medication and chronic constipation who was recently admitted to observation for presumed abdominal pain secondary to constipation and was discharged home after having bowel movements, however at home the patient's abdominal pain did not improve and he had multiple episodes of nausea and bilious emesis so return to the emergency room. He further endorses chronic weight loss as far back as [place], having lost about 17 lb since then. He has never had any abdominal pain prior to this. The abdominal pain is described as colicky, located in the right lower quadrant, or sometimes the epigastrium, Rated to 6 or 7/10, and radiates to the back intermittently. I t was not previously associated with nausea and vomiting until now. He denies fevers, chills, chest pain, shortness of breath, cough, headache, lower extremity edema. In the emergency room he had another CT of his abdomen pelvis with contrast, this revealed a small-bowel obstruction as well as a 3 cm x 2 cm pancreatic mass which was not noted on the prior CT scan, although the prior imaging was without contrast. Surgery was contacted, and continue to follow the patient. They will repeat plain films in the morning and if obstruction is still present he may potentially go to the operating room. He was admitted to the medicine service for small bowel obstruction, and potential workup of pancreatic mass. Patient History Medical History (Updated 12/05/18 @ 16:16 by Isabel Martinez RN) Cervical dystonia (Acute) Chronic constipation (Acute) Parkinson disease (Chronic) Surgical History History of appendectomy (Acute) History of ear surgery (Acute) History of knee surgery (Acute) History of kidney surgery (Chronic) Social History household members: spouse Smoking Status: Former smoker alcohol intake: current substance use type: does not use Family & Social History Social History: household members spouse Prior Living Arrangements House Safety & Behavioral: Feels Safe in Current Yes Environment Suicidal Ideation Description None Tobacco & Substance use: Smoking Status Former smoker alcohol intake current alcohol intake frequency a few times a week Substance Use Type does not use Meds Home Medications Medication Instructions Recorded Confirmed Type multivitamin 1 cap PO DAILY #0 08/01/06 12/05/18 History ascorbic acid (vitamin C) [Vitamin 500 mg PO DAILY 12/03/18 12/05/18 History C] carbidopa-levodopa 1 tab PO QID 12/03/18 12/05/18 History clonazepam 0.5 mg PO QPM 12/03/18 12/05/18 History rasagiline 1 mg PO DAILY 12/03/18 12/05/18 History bisacodyl 10 mg [place] DAILY PRN #50 each 12/04/18 12/05/18 Rx docusate sodium [DOK] 100 mg PO BID #60 cap 12/04/18 12/05/18 Rx mineral oil 118 ml [place] DAILY PRN #6384 ml 12/04/18 12/05/18 Rx polyethylene glycol 3350 17 gram PO DAILY #100 each 12/04/18 12/05/18 Rx sennosides [senna] 8.6 mg PO DAILY PRN #30 tab 12/04/18 12/05/18 Rx Allergies Allergy/AdvReac Type Severity Reaction Status Date / Time Tetracyclines Allergy Unknown Verified 12/03/18 16:26 Review of Systems Review of Systems All other systems reviewed with the patient and are negative unless otherwise stated. Exam Vital Signs (past 8 hours): - 12/05/18 10:22 12/05/18 10:59 12/05/18 12:14 Temperature 98.7 F Pulse Rate 86 81 72 Respiratory Rate 13 16 15 Blood Pressure 192/94 H Blood Pressure [Left Arm] 190/105 H 191/105 H Pulse Oximetry 98 97 12/05/18 13:00 12/05/18 15:36 12/05/18 15:51 Temperature Pulse Rate 85 85 85 Respiratory Rate 18 18 Blood Pressure 139/75 Blood Pressure [Left Arm] 181/100 H 144/81 H Pulse Oximetry 91 95 12/05/18 16:32 Temperature 98.8 F Pulse Rate 84 Respiratory Rate 16 Blood Pressure 163/92 H Blood Pressure [Left Arm] Pulse Oximetry 94 Oxygen Delivery Method Room Air Narrative Exam Narrative: GENERAL APPEARANCE: Cachectic male, no acute distress, but appears acutely ill. Speaks softly and slowly. SKIN: Inspection of the skin reveals no rashes, ulcerations or petechiae. HEENT: The sclerae were anicteric. Extraocular movements were intact and pupils were equal, round with normal accommodation. External inspection of the ears and nose showed no scars, lesions, or masses. Lips, teeth, and gums showed normal mucosa. The oral mucosa appeared dry. NECK: Supple and symmetric. There was no thyroid enlargement, and no tenderness, or masses were felt. CHEST: Normal AP diameter and normal contour without any kyphoscoliosis. LUNGS: Auscultation of the lungs revealed no wheezes, rhonchi, or rales. CARDIOVASCULAR: There was a regular rate and rhythm without any murmurs, gallops, rubs. Peripheral pulses were 2+ and symmetric. ABDOMEN: Soft and nontender with normal bowel sounds. No ascites was noted. MUSCULOSKELETAL: There was no tenderness or effusions noted. Muscle strength and tone were normal. EXTREMITIES: No cyanosis, clubbing or edema. NEUROLOGIC: Alert and oriented x 3. Reserved. Slow purposeful movements and occasional tremor noted. Strength is +5/5 in the Upper Extremities and Lower Extremities Bilaterally. Sensation to touch was normal. Objective Labs Result Diagrams: 12/05/18 10:30 12/05/18 10:30 Labs: Laboratory Results - last 24 hr 12/05/18 12/05/18 10:30 10:30 WBC 11.1 H RBC 4.24 L Hgb 13.8 Hct 40.8 L MCV 96.1 MCH 32.4 MCHC 33.7 RDW 13.4 Plt Count 278 Neut % (Auto) 88.4 H Lymph % (Auto) 4.7 L [place] % (Auto) 6.7 Eos % (Auto) 0.0 L Baso % (Auto) 0.2 Neut # (Auto) 9800 H Lymph # (Auto) 500 L [place] # (Auto) 700 Eos # (Auto) 0 Baso # (Auto) 0 Sodium 137 Potassium 3.8 Chloride 96 L Carbon Dioxide 33 H BUN 22 H Creatinine 0.80 Estimated GFR > 60.0 BUN/Creatinine Ratio 27.5 H Glucose 166 H Calcium 9.8 Total Bilirubin 0.6 AST 59 ALT 13 L Alkaline Phosphatase 92 Total Protein 7.9 Albumin 4.4 Globulin 3.5 Albumin/Globulin Ratio 1.3 Lipase 66 D Assessment & Plan Assessment & Plan narrative: Christian Sena is a 78-year-old male with past medical history of well-controlled Parkinson's and chronic constipation, admitted to Medicine for small-bowel obstruction and further workup of pancreatic mass. 1. Acute small-bowel obstruction, present on admission -likely secondary to pancreatic mass, but could possibly still be from constipation, however he has been having bowel movements at home and this is unlikely. However because he has been having bowel movements this is more likely to be a partial obstruction. Surgery is following, and the plan is to repeat films in the morning, if he still has evidence of obstruction he may go to the operating room tomorrow. -appreciate surgical recommendations -NPO/IVF -continue NG tube to suction -monitor nutritional status -continue to monitor bowel movements, we will hold any promotility agents at this time, although he can get as needed suppositories.\ -Zofran as needed for nausea 2. Pancreatic head mass -as seen on abdominal CT. He further appears cachectic and has weight loss over the past few months, and given the appearance on imaging this is most likely malignant. He will need an MRI with pancreatic protocol, as well as full imaging of his chest and head for further workup. However, this can be delayed temporarily given his small bowel obstruction as noted above. -obtain MRI once stable from bowel obstruction -will send CA 19-9 if available -consider oncology consultation pending SBO management as above 3.Chronic Parkinson's disease, stable. -patient is quite functional and ambulates daily and reports no falls. He manifests masked face ease and tremors but has no evidence of impaired swallowing. -continue patient's home medication of carbidopa levodopa 4 times daily and rasagiline 1 mg daily once able to tolerate p.o. DVT: HSQ BID Dispo: Patient is admitted to Medicine as his stay is expected to exceed 2 midnights. Time Spent With Patient Time with patient: Greater than 35 minutes
--- NOTE | 2018-12-05 17:51 | PM.CN ---
History of Present Illness Date Patient Seen: 12/05/18 Time Patient Seen: 17:52 Chief complaint: Bowel Blockage Reason for consult: Small-bowel obstruction Narrative: 78-year-old white male came to the hospital after 3 or 4 day history of abdominal pain and back pain and a 1 day history of vomiting. He has been unable to move his bowels at home. Was admitted 2 days ago and then discharged yesterday with improvement of his GI function. He came back to the emergency room today with mid abdominal pain and back pain and vomiting. CT scan was done showing likely a partial small-bowel obstruction or adynamic ileus. Possibly some ascites is seen in the pelvis. Strikingly there is a 3 cm mass near the the head of the pancreas. This pancreatic mass contains some lucencies but there is clearly a solid component. Patient has been losing weight for the last 8 months. Patient does have a history of Parkinson's disease and has difficulty moving his bowels. [facility] Medical History Cervical dystonia (Acute) Chronic constipation (Acute) Parkinson disease (Chronic) Surgical History History of appendectomy (Acute) History of ear surgery (Acute) History of knee surgery (Acute) History of kidney surgery (Chronic) Social History household members: spouse Smoking Status: Former smoker alcohol intake: current substance use type: does not use Social History household members: spouse Smoking Status: Former smoker alcohol intake: current substance use type: does not use Meds Home Medications Medication Instructions Recorded Confirmed Type multivitamin 1 cap PO DAILY #0 08/01/06 12/05/18 History ascorbic acid (vitamin C) [Vitamin 500 mg PO DAILY 12/03/18 12/05/18 History C] carbidopa-levodopa 1 tab PO QID 12/03/18 12/05/18 History clonazepam 0.5 mg PO QPM 12/03/18 12/05/18 History rasagiline 1 mg PO DAILY 12/03/18 12/05/18 History bisacodyl 10 mg [place] DAILY PRN #50 each 12/04/18 12/05/18 Rx docusate sodium [DOK] 100 mg PO BID #60 cap 12/04/18 12/05/18 Rx mineral oil 118 ml [place] DAILY PRN #6384 ml 12/04/18 12/05/18 Rx polyethylene glycol 3350 17 gram PO DAILY #100 each 12/04/18 12/05/18 Rx sennosides [senna] 8.6 mg PO DAILY PRN #30 tab 12/04/18 12/05/18 Rx Allergies Allergy/AdvReac Type Severity Reaction Status Date / Time Tetracyclines Allergy Unknown Verified 12/03/18 16:26 Review of Systems Review of Systems All systems reviewed & are unremarkable except as noted in HPI and below Exam Vital Signs (past 8 hours): - 12/05/18 10:22 12/05/18 10:59 12/05/18 12:14 Temperature 98.7 F Pulse Rate 86 81 72 Respiratory Rate 13 16 15 Blood Pressure 192/94 H Blood Pressure [Left Arm] 190/105 H 191/105 H Pulse Oximetry 98 97 12/05/18 13:00 12/05/18 15:36 12/05/18 15:51 Temperature Pulse Rate 85 85 85 Respiratory Rate 18 18 Blood Pressure 139/75 Blood Pressure [Left Arm] 181/100 H 144/81 H Pulse Oximetry 91 95 12/05/18 16:32 Temperature 98.8 F Pulse Rate 84 Respiratory Rate 16 Blood Pressure 163/92 H Blood Pressure [Left Arm] Pulse Oximetry 94 Oxygen Delivery Method Room Air Narrative Exam Narrative: Patient is cachectic. No apparent jaundice. Abdomen is slightly distended. Nasogastric tube is putting out thick succus entericus. About 500 cc are in the canister now. Lungs are clear Heart regular rhythm no murmur Abdomen is somewhat distended. I do not palpate any masses. No organomegaly is noted. Objective Labs Result Diagrams: 12/05/18 10:30 12/05/18 10:30 Labs: Laboratory Results - last 24 hr 12/05/18 12/05/18 10:30 10:30 WBC 11.1 H RBC 4.24 L Hgb 13.8 Hct 40.8 L MCV 96.1 MCH 32.4 MCHC 33.7 RDW 13.4 Plt Count 278 Neut % (Auto) 88.4 H Lymph % (Auto) 4.7 L [place] % (Auto) 6.7 Eos % (Auto) 0.0 L Baso % (Auto) 0.2 Neut # (Auto) 9800 H Lymph # (Auto) 500 L [place] # (Auto) 700 Eos # (Auto) 0 Baso # (Auto) 0 Sodium 137 Potassium 3.8 Chloride 96 L Carbon Dioxide 33 H BUN 22 H Creatinine 0.80 Estimated GFR > 60.0 BUN/Creatinine Ratio 27.5 H Glucose 166 H Calcium 9.8 Total Bilirubin 0.6 AST 59 ALT 13 L Alkaline Phosphatase 92 Total Protein 7.9 Albumin 4.4 Globulin 3.5 Albumin/Globulin Ratio 1.3 Lipase 66 D Assessment & Plan Assessment & Plan narrative: Patient with pancreatic mass and possibly a small bowel obstruction at least partial in nature. CT does show copious gas and stool in the colon so that if his small bowel is obstructed is only partial. This could be related to the pancreatic mass and could represent a metastatic implant or deposit in the small bowel. Patient will continue with nasogastric decompression tonight and IV fluid replacement therapy. I will repeat plain films of the abdomen tomorrow to assess the nature of his small-bowel obstruction. MRI of the pancreas will be done when possible.
--- NOTE | 2018-12-05 17:59 | P.CONS_ITS ---
History of Present Illness Date Patient Seen: 12/05/18 Time Patient Seen: 17:52 Chief complaint: Bowel Blockage Reason for consult: Small-bowel obstruction Narrative: 78-year-old white male came to the hospital after 3 or 4 day history of abdominal pain and back pain and a 1 day history of vomiting. He has been unable to move his bowels at home. Was admitted 2 days ago and then discharged yesterday with improvement of his GI function. He came back to the emergency room today with mid abdominal pain and back pain and vomiting. CT scan was done showing likely a partial small-bowel obstruction or adynamic ileus. Possibly some ascites is seen in the pelvis. Strikingly there is a 3 cm mass near the the head of the pancreas. This pancreatic mass contains some lucencies but there is clearly a solid component. Patient has been losing weight for the last 8 months. Patient does have a history of Parkinson's disease and has difficulty moving his bowels. [facility] Medical History Cervical dystonia (Acute) Chronic constipation (Acute) Parkinson disease (Chronic) Surgical History History of appendectomy (Acute) History of ear surgery (Acute) History of knee surgery (Acute) History of kidney surgery (Chronic) Social History household members: spouse Smoking Status: Former smoker alcohol intake: current substance use type: does not use Social History household members: spouse Smoking Status: Former smoker alcohol intake: current substance use type: does not use Meds Home Medications Medication Instructions Recorded Confirmed Type multivitamin 1 cap PO DAILY #0 08/01/06 12/05/18 History ascorbic acid (vitamin C) [Vitamin 500 mg PO DAILY 12/03/18 12/05/18 History C] carbidopa-levodopa 1 tab PO QID 12/03/18 12/05/18 History clonazepam 0.5 mg PO QPM 12/03/18 12/05/18 History rasagiline 1 mg PO DAILY 12/03/18 12/05/18 History bisacodyl 10 mg [place] DAILY PRN #50 each 12/04/18 12/05/18 Rx docusate sodium [DOK] 100 mg PO BID #60 cap 12/04/18 12/05/18 Rx mineral oil 118 ml [place] DAILY PRN #6384 ml 12/04/18 12/05/18 Rx polyethylene glycol 3350 17 gram PO DAILY #100 each 12/04/18 12/05/18 Rx sennosides [senna] 8.6 mg PO DAILY PRN #30 tab 12/04/18 12/05/18 Rx Allergies Allergy/AdvReac Type Severity Reaction Status Date / Time Tetracyclines Allergy Unknown Verified 12/03/18 16:26 Review of Systems Review of Systems All systems reviewed & are unremarkable except as noted in HPI and below Exam Vital Signs (past 8 hours): - 12/05/18 10:22 12/05/18 10:59 12/05/18 12:14 Temperature 98.7 F Pulse Rate 86 81 72 Respiratory Rate 13 16 15 Blood Pressure 192/94 H Blood Pressure [Left Arm] 190/105 H 191/105 H Pulse Oximetry 98 97 12/05/18 13:00 12/05/18 15:36 12/05/18 15:51 Temperature Pulse Rate 85 85 85 Respiratory Rate 18 18 Blood Pressure 139/75 Blood Pressure [Left Arm] 181/100 H 144/81 H Pulse Oximetry 91 95 12/05/18 16:32 Temperature 98.8 F Pulse Rate 84 Respiratory Rate 16 Blood Pressure 163/92 H Blood Pressure [Left Arm] Pulse Oximetry 94 Oxygen Delivery Method Room Air Narrative Exam Narrative: Patient is cachectic. No apparent jaundice. Abdomen is slightly distended. Nasogastric tube is putting out thick succus entericus. About 500 cc are in the canister now. Lungs are clear Heart regular rhythm no murmur Abdomen is somewhat distended. I do not palpate any masses. No organomegaly is noted. Objective Labs Result Diagrams: 12/05/18 10:30 12/05/18 10:30 Labs: Laboratory Results - last 24 hr 12/05/18 12/05/18 10:30 10:30 WBC 11.1 H RBC 4.24 L Hgb 13.8 Hct 40.8 L MCV 96.1 MCH 32.4 MCHC 33.7 RDW 13.4 Plt Count 278 Neut % (Auto) 88.4 H Lymph % (Auto) 4.7 L [place] % (Auto) 6.7 Eos % (Auto) 0.0 L Baso % (Auto) 0.2 Neut # (Auto) 9800 H Lymph # (Auto) 500 L [place] # (Auto) 700 Eos # (Auto) 0 Baso # (Auto) 0 Sodium 137 Potassium 3.8 Chloride 96 L Carbon Dioxide 33 H BUN 22 H Creatinine 0.80 Estimated GFR > 60.0 BUN/Creatinine Ratio 27.5 H Glucose 166 H Calcium 9.8 Total Bilirubin 0.6 AST 59 ALT 13 L Alkaline Phosphatase 92 Total Protein 7.9 Albumin 4.4 Globulin 3.5 Albumin/Globulin Ratio 1.3 Lipase 66 D Assessment & Plan Assessment & Plan narrative: Patient with pancreatic mass and possibly a small bowel obstruction at least partial in nature. CT does show copious gas and s tool in the colon so that if his small bowel is obstructed is only partial. This could be related to the pancreatic mass and could represent a metastatic implant or deposit in the small bowel. Patient will continue with nasogastric decompression tonight and IV fluid replacement therapy. I will repeat plain films of the abdomen tomorrow to assess the nature of his small-bowel obstruction. MRI of the pancreas will be done when possible.
--- NOTE | 2018-12-05 18:18 | PC.NURSE ---
Addendum entered by Vi Walker R.N. 12/05/18 22:06: NGT-550mL out, thick drk green drainage. Addendum entered by Vi Walker R.N. 12/05/18 21:21: orders to place telemetry. LFA LR @ 125, bolus completed @ 1999. Addendum entered by Vi Walker R.N. 12/05/18 18:24: Orders for LR bolus now, then LR @ 125. Original Note: 1600- Pt arrived to room 216 from ED via bed. A/O x3, Hx parkinson's, 94%RA, LS clear. NGT placeed in ED with report of 2200mL just prior to transfer, NGT CIS, drainage is thick, drk green. Provided with toothettes, mouth moisterizer, and lip balm. , Roxana at bedside. Dr. Mullen in to see pt. BT+, denies nausea at this time, NPO status, ABD mild distention, denies pain. LFA SL at this time. Placed on Q-6 CBG checks. Pt given urinal. Call light in reach and bed alarm on.
[2018-12-05] MEDS: LACTATED RINGERS 1,000 ML 1000 ML IV (19:08)
[2018-12-05] MEDS: LACTATED RINGERS 1,000 ML 125 ML IV (20:23)
[2018-12-05] MEDS: HEPARIN 5,000 UNIT/ML VIAL 5000 UNIT SUBCUT (20:26)
[2018-12-06] VITALS (20 sets, daily range): BP systolic 117–166; BP diastolic 66–86; PULSE 70–83; RESP 15–22; TEMP 36.7–37.6; O2SAT 93–96
[2018-12-06] MEDS: LACTATED RINGERS 1,000 ML 125 ML IV (04:50)
[2018-12-06 06:26] LABS: Add Manual Diff / Slide Review NO; Basophils Absolute Auto 0 /uL (0-100); Basophils Percent Auto 0.3 % (0-2); Eosinophils Absolute Auto 0 /uL (0-450); Eosinophils Percent Auto 0.1 % (2-4); Hematocrit 37.1 % (41-53); Hemoglobin 12.9 g/dL (13.5-17.5); Lymphocytes Absolute Auto 500 /uL (1100-4500); Lymphocytes Percent Auto 6.7 % (25-40); Mean Corpuscular HGB Conc 34.7 % (30-36); Mean Corpuscular Hemoglobin 32.7 PG (26-34); Mean Corpuscular Volume 94.2 fL (80-100); Monocytes Absolute Auto 400 /uL (0-900); Monocytes Percent Auto 5.6 % (3-14); Neutrophils Absolute Auto 6900 /uL (1500-7000); Neutrophils Percent Auto 87.3 % (50-75); Platelet Count 216 X10^3/uL (150-400); Red Blood Cell Count 3.94 X10^6/uL (4.5-5.9); Red Cell Distribution Width 13.6 % (11.6-14.8); White Blood Cell Count 7.8 X10^3/uL (4.5-11.0)
--- NOTE | 2018-12-06 06:29 | PC.NURSE ---
Pt with SBO. NG draining dark green output, 875cc out overnight. NG meausres 59cm from tip of nose to end of tube. Pt denies abd pain, cramping. Denies nausea. NPO. Abd rounded, soft, non-tender to palpation. q6hr BG as pt NPO. Maintenence IVF of LR @125cc/hr. Plan for MRI today as 3cm pancreatic mass found on CT. Pt turned q2hr overnight to maintain skin integrity, 1 person assist for turns. Pt frail, weak. Pt with esssential tremors, needs assist for personal needs ie oral care.
[2018-12-06 06:32] LABS: BUN Creatinine Ratio 31.3 (6-22); Blood Urea Nitrogen 25 mg/dL (9-20); Calcium 8.8 mg/dL (8.4-10.2); Carbon Dioxide 33 mmol/L (22-32); Chloride 98 mmol/L (98-107); Estimated Glomerular Filt Rate > 60.0 mL/min (>60); Glucose 133 mg/dL (80-110); HEMOLYSIS < 15 (0-50); Magnesium 2.2 mg/dL (1.6-2.3); Potassium 3.7 mmol/L (3.4-5.1); Sodium 138 mmol/L (137-145)
--- NOTE | 2018-12-06 08:00 | DI.RAD.S_ITS ---
PROCEDURE: XR ABDOMEN 3V INDICATIONS: SBO TECHNIQUE: One view chest and two views of the abdomen were acquired. COMPARISON: Located Within [facility], CT, CT ABDOMEN PELVIS W CON, 12/05/2018, 13:07. FINDINGS: Surgical changes and devices: Nasogastric tube is identified with the tip positioned overlying the fundus of the stomach. Chest: Lungs are clear. Calcifications at the left lung base are evident. Minimal left basilar consolidation is present. Heart size is normal. No pleural effusions. No pneumoperitoneum. Abdomen: Multiple mildly dilated small bowel loops are present within the left upper quadrant, measuring up to approximately 4.1 cm in diameter. Air and stool are seen within the colon. No suspicious calcifications. Visualized solid organ contours appear normal. Contrast is present within the urinary bladder. Bones: No suspicious bony lesions. IMPRESSION: 1. Continued small bowel obstruction. 2. Minimal left basilar atelectasis versus pneumonia. Dictated by: Eamon Milner M.D. on 12/06/2018 at 8:04 Approved by: Eamon Milner M.D. on 12/06/2018 at 8:06
[2018-12-06] MEDS: HEPARIN 5,000 UNIT/ML VIAL 5000 UNIT SUBCUT ×2 (08:42→21:05)
--- NOTE | 2018-12-06 09:18 | CM.DANOTE ---
Addendum entered by Anjali Julien LPN 12/06/18 12:08: Did look further at insurance. [employer] is primary: pt's Roxana is the subscriber. [employer] A is secondary. Addendum entered by Anjali Julien LPN 12/06/18 11:40: Case was discussed with Dr. Rodrigues noting the pancreatic mass noted on CT and the ongoing bowel obstruction. Dr. Moore planned to take pt to surgery this morning for an exploratory laparotomy and possible resection. Went to room after rounds to see pt and noted that he was already in surgery. Noted Roxana's cell #: [phone]. Family were present this morning to talk with Dr. Moore and pt about the surgical plan. DCP team will be following as POC unfolds to assist with d/c issues and options. Original Note: Discharge Planning/Care Management DCP: assessment: Case received, EMR reviewed: READMIT: noted: see DCP Assessment template below for details. Pt is a 78 year old male who admitted yesterday afternoon to care of hospitalist team after a d/c home the day before. Dr. Rodrigues is seeing pt and has consulted surgeon Dr. Moore. Payer: [employer] and Medicare A only. PCP: Dr. Isreal Mata P: discuss this morning in Team Rounds and then meet with pt to continue the assessment process. Advanced directive, confirm from FAMILY Start: 12/05/18 16:14 Freq: Q24H Status: Active Protocol: Document 12/05/18 16:14 MLA (Rec: 12/05/18 21:44 MLA [id number]) Advance Directive, confirm on record Time 16:00 Person contacted Roxana, Copy received No CM Discharge Assessment Start: 12/06/18 09:16 Freq: Status: Active Protocol: Document 12/06/18 09:16 ITV (Rec: 12/06/18 09:18 ITV [id number]) Discharge Planning Assessment Advance Directives? Yes: Full Code History Provided By Medical Record Has Patient been admitted in last 30 Yes days? Comment Admitted to 12/03-12/04 for treatment of obstipation: d/c' d to home, symptoms continued. Readmitted to 12/05 with dx SBO. Prior Living Arrangements House Household Members spouse Whiteboard Updated in Patient Room with Yes name and ext. # of Stockroom Keeper Review Status In Process
--- NOTE | 2018-12-06 09:27 | PM.PN.1 ---
Exam Vital Signs (past 8 hours): - 12/06/18 04:37 12/06/18 07:41 Temperature 98.6 F 98.6 F Pulse Rate 76 77 Respiratory Rate 19 20 Blood Pressure 154/78 H 142/68 H Pulse Oximetry 95 95 Oxygen Delivery Method Room Air Oxygen Flow Rate 0 Objective Labs Result Diagrams: 12/06/18 05:25 12/06/18 05:25 Labs: Laboratory Results - last 24 hr 12/05/18 12/05/18 12/06/18 10:30 10:30 05:25 WBC 11.1 H 7.8 RBC 4.24 L 3.94 L Hgb 13.8 12.9 L Hct 40.8 L 37.1 L MCV 96.1 94.2 MCH 32.4 32.7 MCHC 33.7 34.7 RDW 13.4 13.6 Plt Count 278 216 Neut % (Auto) 88.4 H 87.3 H Lymph % (Auto) 4.7 L 6.7 L [place] % (Auto) 6.7 5.6 Eos % (Auto) 0.0 L 0.1 L Baso % (Auto) 0.2 0.3 Neut # (Auto) 9800 H 6900 Lymph # (Auto) 500 L 500 L [place] # (Auto) 700 400 Eos # (Auto) 0 0 Baso # (Auto) 0 0 Sodium 137 Potassium 3.8 Chloride 96 L Carbon Dioxide 33 H BUN 22 H Creatinine 0.80 Estimated GFR > 60.0 BUN/Creatinine Ratio 27.5 H Glucose 166 H Calcium 9.8 Magnesium Total Bilirubin 0.6 AST 59 ALT 13 L Alkaline Phosphatase 92 Total Protein 7.9 Albumin 4.4 Globulin 3.5 Albumin/Globulin Ratio 1.3 Lipase 66 D 12/06/18 05:25 WBC RBC Hgb Hct MCV MCH MCHC RDW Plt Count Neut % (Auto) Lymph % (Auto) [place] % (Auto) Eos % (Auto) Baso % (Auto) Neut # (Auto) Lymph # (Auto) [place] # (Auto) Eos # (Auto) Baso # (Auto) Sodium 138 Potassium 3.7 Chloride 98 Carbon Dioxide 33 H BUN 25 H Creatinine 0.80 Estimated GFR > 60.0 BUN/Creatinine Ratio 31.3 H Glucose 133 H Calcium 8.8 Magnesium 2.2 Total Bilirubin AST ALT Alkaline Phosphatase Total Protein Albumin Globulin Albumin/Globulin Ratio Lipase Assessment & Plan Assessment & Plan narrative: Christian Sena is a 78-year-old male with past medical history of well-controlled Parkinson's and chronic constipation, admitted to Medicine for small-bowel obstruction and further workup of pancreatic mass. 1. Acute small-bowel obstruction, present on admission -likely secondary to pancreatic mass, but could possibly still be from constipation, however he has been having bowel movements at home and this is unlikely. However because he has been having bowel movements this is more likely to be a partial obstruction. He had 4 L of output from his NG tube, and still evidence of obstruction on radiographs this morning. He is currently planned for operative intervention later today. -appreciate surgical recommendations -NPO/IVF -continue NG tube to suction -monitor nutritional status -continue to monitor bowel movements, we will hold any promotility agents at this time, although he can get as needed suppositories. -Zofran as needed for nausea 2. Pancreatic head mass -as seen on abdominal CT. He further appears cachectic and has weight loss over the past few months, and given the appearance on imaging this is most likely malignant. He will need an MRI with pancreatic protocol, as well as full imaging of his chest and head for further workup. However, this can be delayed temporarily given his small bowel obstruction as noted above. -obtain MRI once stable from bowel obstruction -will send CA 19-9 if available -consider oncology consultation pending SBO management as above 3.Chronic Parkinson's disease, stable. -patient is quite functional and ambulates daily and reports no falls. He manifests masked face ease and tremors but has no evidence of impaired swallowing. -continue patient's home medication of carbidopa levodopa 4 times daily and rasagiline 1 mg daily once able to tolerate p.o. DVT: HSQ BID Dispo: Patient is admitted to Medicine as his stay is expected to exceed 2 midnights.
--- NOTE | 2018-12-06 09:32 | PM.PN.1 ---
Subjective Date Patient Seen: 12/06/18 Time Patient Seen: 09:32 Interval history: Patient admitted with small-bowel obstruction yesterday. Today he has less abdominal pain. He is not passing any flatus or stool. Nasogastric tube on suction produced over 4 L of fluid in less than 24 hours. Abdominal films this morning still show air-fluid levels in the small bowel although there is still gas present in the colon. Exam Vital Signs (past 8 hours): - 12/06/18 04:37 12/06/18 07:41 Temperature 98.6 F 98.6 F Pulse Rate 76 77 Respiratory Rate 19 20 Blood Pressure 154/78 H 142/68 H Pulse Oximetry 95 95 Oxygen Delivery Method Room Air Oxygen Flow Rate 0 Narrative Exam Narrative: Patient is alert and oriented Abdominal pain has subsided since placement of the NG tube Abdominal exam reveals some distension Moderate abdominal tenderness in the mid abdomen. Objective Labs Result Diagrams: 12/06/18 05:25 12/06/18 05:25 Labs: Laboratory Results - last 24 hr 12/05/18 12/05/18 12/06/18 10:30 10:30 05:25 WBC 11.1 H 7.8 RBC 4.24 L 3.94 L Hgb 13.8 12.9 L Hct 40.8 L 37.1 L MCV 96.1 94.2 MCH 32.4 32.7 MCHC 33.7 34.7 RDW 13.4 13.6 Plt Count 278 216 Neut % (Auto) 88.4 H 87.3 H Lymph % (Auto) 4.7 L 6.7 L [place] % (Auto) 6.7 5.6 Eos % (Auto) 0.0 L 0.1 L Baso % (Auto) 0.2 0.3 Neut # (Auto) 9800 H 6900 Lymph # (Auto) 500 L 500 L [place] # (Auto) 700 400 Eos # (Auto) 0 0 Baso # (Auto) 0 0 Sodium 137 Potassium 3.8 Chloride 96 L Carbon Dioxide 33 H BUN 22 H Creatinine 0.80 Estimated GFR > 60.0 BUN/Creatinine Ratio 27.5 H Glucose 166 H Calcium 9.8 Magnesium Total Bilirubin 0.6 AST 59 ALT 13 L Alkaline Phosphatase 92 Total Protein 7.9 Albumin 4.4 Globulin 3.5 Albumin/Globulin Ratio 1.3 Lipase 66 D 12/06/18 05:25 WBC RBC Hgb Hct MCV MCH MCHC RDW Plt Count Neut % (Auto) Lymph % (Auto) [place] % (Auto) Eos % (Auto) Baso % (Auto) Neut # (Auto) Lymph # (Auto) [place] # (Auto) Eos # (Auto) Baso # (Auto) Sodium 138 Potassium 3.7 Chloride 98 Carbon Dioxide 33 H BUN 25 H Creatinine 0.80 Estimated GFR > 60.0 BUN/Creatinine Ratio 31.3 H Glucose 133 H Calcium 8.8 Magnesium 2.2 Total Bilirubin AST ALT Alkaline Phosphatase Total Protein Albumin Globulin Albumin/Globulin Ratio Lipase Assessment & Plan Assessment & Plan narrative: Patient still has evidence of small-bowel obstruction despite greater than 4 L of succus entericus being aspirated from his NG tube. The fluid from the NG tube is still a bit fecal. This process has actually been going on for over 4 days since the patient was admitted and discharged and readmitted. My recommendation is laparotomy correction of small-bowel obstruction with possible resection. This could be related to his pancreatic mass. The family and patient understand and the patient is eager to have an operation. All questions were answered to their satisfaction. We will proceed as soon as possible.
--- NOTE | 2018-12-06 09:35 | P.PN_ITS ---
Subjective Date Patient Seen: 12/06/18 Time Patient Seen: 09:32 Interval history: Patient admitted with small-bowel obstruction yesterday. Today he has less abdominal pain. He is not passing any flatus or stool. Nasogastric tube on suction produced over 4 L of fluid in less than 24 hours. Abdominal films this morning still show air-fluid levels in the small bowel although there is still gas present in the colon. Exam Vital Signs (past 8 hours): - 12/06/18 04:37 12/06/18 07:41 Temperature 98.6 F 98.6 F Pulse Rate 76 77 Respiratory Rate 19 20 Blood Pressure 154/78 H 142/68 H Pulse Oximetry 95 95 Oxygen Delivery Method Room Air Oxygen Flow Rate 0 Narrative Exam Narrative: Patient is alert and oriented Abdominal pain has subsided since placement of the NG tube Abdominal exam reveals some distension Moderate abdominal tenderness in the mid abdomen. Objective Labs Result Diagrams: 12/06/18 05:25 12/06/18 05:25 Labs: Laboratory Results - last 24 hr 12/05/18 12/05/18 12/06/18 10:30 10:30 05:25 WBC 11.1 H 7.8 RBC 4.24 L 3.94 L Hgb 13.8 12.9 L Hct 40.8 L 37.1 L MCV 96.1 94.2 MCH 32.4 32.7 MCHC 33.7 34.7 RDW 13.4 13.6 Plt Count 278 216 Neut % (Auto) 88.4 H 87.3 H Lymph % (Auto) 4.7 L 6.7 L [place] % (Auto) 6.7 5.6 Eos % (Auto) 0.0 L 0.1 L Baso % (Auto) 0.2 0.3 Neut # (Auto) 9800 H 6900 Lymph # (Auto) 500 L 500 L [place] # (Auto) 700 400 Eos # (Auto) 0 0 Baso # (Auto) 0 0 Sodium 137 Potassium 3.8 Chloride 96 L Carbon Dioxide 33 H BUN 22 H Creatinine 0.80 Estimated GFR > 60.0 BUN/Creatinine Ratio 27.5 H Glucose 166 H Calcium 9.8 Magnesium Total Bilirubin 0.6 AST 59 ALT 13 L Alkaline Phosphatase 92 Total Protein 7.9 Albumin 4.4 Globulin 3.5 Albumin/Globulin Ratio 1.3 Lipase 66 D 12/06/18 05:25 WBC RBC Hgb Hct MCV MCH MCHC RDW Plt Count Neut % (Auto) Lymph % (Auto) [place] % (Auto) Eos % (Auto) Baso % (Auto) Neut # (Auto) Lymph # (Auto) [place] # (Auto) Eos # (Auto) Baso # (Auto) Sodium 138 Potassium 3.7 Chloride 98 Carbon Dioxide 33 H BUN 25 H Creatinine 0.80 Estimated GFR > 60.0 BUN/Creatinine Ratio 31.3 H Glucose 133 H Calcium 8.8 Magnesium 2.2 Total Bilirubin AST ALT Alkaline Phosphatase Total Protein Albumin Globulin Albumin/Globulin Ratio Lipase Assessment & Plan Assessment & Plan narrative: Patient still has evidence of small-bowel obstruction despite greater than 4 L of succus entericus being aspirated from his NG tube. The fluid from the NG tube is still a bit fecal. This process has actually been going on for over 4 days since the patient was admitted and discha rged and readmitted. My recommendation is laparotomy correction of small-bowel obstruction with possible resection. This could be related to his pancreatic mass. The family and patient understand and the patient is eager to have an operation. All questions were answered to their satisfaction. We will proceed as soon as possible.
[2018-12-06] MEDS: CEFTRIAXONE 2 GM/50 ML FROZ.PIGGY IV (10:40)
--- NOTE | 2018-12-06 10:47 | PC.NURSE ---
Pt to OR for Ex-lap and possible bowel resection. BG 127, VS stable (documented). NG intact, IV saline locked. Consent signed. Family present.
[2018-12-06] MEDS: LACTATED RINGERS 1,000 ML 42 ML IV (10:50)
--- NOTE | 2018-12-06 11:04 | SUR.HOLD ---
arrieved at 1045 am pt in holding . pre op assessment completed by anesthesia and VALVE SEATER OPERATOR. Consents had already been obtained. I performed a quick IV, and pain assessment and set of VS prior to moving pt to OR.
--- NOTE | 2018-12-06 11:20 | SUR.OPER ---
Supine on padded OR bed, head on pillow, arms secured on padded arm boards at <90 degrees abduction, legs uncrossed, safety belt at thigh, tape over blanket over lower legs.
[2018-12-06] MEDS: BACITRACIN 50,000 UNIT VIAL 50000 UNIT IRR (11:29)
[2018-12-06] MEDS: BUPIVACAINE 0.5% W/ EPI (PF) VIAL 30 ML INJ (11:30)
[2018-12-06] MEDS: BACITRACIN 28 GM OINT 1 APPLIC TOP (11:53)
--- NOTE | 2018-12-06 12:29 | PM.OP.1 ---
Operative Date/Time/Diagnoses Date of procedure: 12/06/18 Time of procedure: 12:29 Pre-op diagnosis: Complete mechanical small bowel obstruction secondary to adhesions Post-op diagnosis: same Procedure & Clinicians Procedure: Exploratory laparotomy enterolysis for complete mechanical small bowel obstruction Same procedure as scheduled: Yes Indications: Complete mechanical small bowel obstruction Surgeon: Sacha Regalado Click Yes if Unassisted: Yes Anesthesia Type: General Operative Notes Findings: Complete mechanical small bowel obstruction with severe hyperemia and ischemia to distal ileum. Secondary to pelvic adhesions from prior surgery. Patient also has a well-circumscribed mass in the proximal body of the pancreas which was palpated. No sign of adjoining adenopathy. The mass itself is fairly soft. There is no sign of liver tumor. The mass was not biopsied. That decision was made based on the severity of his intestinal obstruction from benign disease. Closure Type: primary Specimen(s): none sent Applied: catheter Estimated Blood Loss (mL): 50 Blood products transfused: none Complications: none
--- NOTE | 2018-12-06 13:04 | P.OP_ITS ---
Operative Date/Time/Diagnoses Date of procedure: 12/06/18 Time of procedure: 12:56 Pre-op diagnosis: Mechanical small-bowel obstruction complete secondary to adhesions Post-op diagnosis: same Procedure & Clinicians Procedure: Exploratory laparotomy enterolysis for complete mechanical small bowel obstruction Same procedure as scheduled: Yes Indications: Complete mechanical small bowel obstruction Surgeon: Sacha Regalado Click Yes if Unassisted: Yes Anesthesia Type: General Operative Notes Findings: Complete mechanical small bowel obstruction secondary to pelvic adhesions with high-grade obstruction severe ischemia to segment of ileum. Patient also has 3 cm pancreatic mass with no sign of metastatic disease Closure Type: primary Specimen(s): none sent Applied: catheter Estimated Blood Loss (mL): 50 Blood products transfused: none Procedure in detail: Patient was properly identified during surgical pause given a general and endotracheal anesthetic. Prepped and draped in a sterile fashion exposure of the mid abdomen. Midline incision is made the abdomen explored. Patient had marked dilatation of proximal small bowel jejunum and proximal ileum were dilated patient had copious ascites. This was aspirated. The bowel was traced to a point of obstruction in the pelvis where there were several high- grade obstructions causing severe ischemic changes to a segment of ileum. The ileum was hyperemic and cyanotic. When the adhesions were lysed the bowel returned to a more normal color and indeed was demonstrated to have peristalsis. I traced the entire small bowel from ligament of Treitz to ileocecal valve rem oving any additional adhesive bands that were apparent around the terminal ileum. The colon contained copious amount of very hard inspissated stool. The bowel was returned to its anatomic position. The patient was noted on CT to have an incidental finding of a pancreatic mass. I opened the lesser space exposing the pancreas. Patient indeed has a mass in the proximal body of the pancreas which measures about 3 cm in diameter. I did palpate this mass and it is fairly soft. Seemingly cystic. There is no sign of metastatic disease with no adenopathy and a normal liver examination by inspection and palpation. This mass was not adherent to the stomach. I did not biopsy the mass for fear of creating a pancreatic fistula. In the face of a severe bowel obstruction I did not want to risk additional complications. With the bowel in an anatomic position I closed the fascia with 1. PDS. The subcu was closed with fine Vicryl. Prior to abdominal closure the peritoneal cavity was irrigated with a L of bacitracin saline and aspirated dry. After fascial closure the skin was stapled sterile dressings applied and the procedure was very well tolerated. Complications: none Condition: stable Disposition: PACU
--- NOTE | 2018-12-06 13:10 | PC.NURSE ---
Pt back to room from the OR. Pt is awake, alert, and oriented. Denies pain, nausea, difficulty swallowing, or shortness of breath. Dsg to abdomen is CDI and without a drain or drainage. Ice chips given to Pt. Family at the bedside. Bed alarm on for safety. RT consult order placed for RT eval and IS training. Pt denies needs at this time.
[2018-12-06] MEDS: SODIUM CHLORIDE 0.9% 1,000 ML 125 ML IV ×2 (13:27→21:57)
[2018-12-06] MEDS: CARBIDOPA-LEVODOPA 25/100 TABLET 1 EACH PO ×3 (13:32→21:05)
--- NOTE | 2018-12-06 17:10 | PT.IIE ---
Surgery Performed Operation Date: 12/06/18 10:00 Actual Procedures p Exploratory Laparotomy, lysis of adhesions for complete mechanical small bowel obstruction - Sacha Regalado MD Surgical History (Last Reviewed 12/05/18 @ 17:54 by Sacha Regalado MD) History of appendectomy (Acute) History of ear surgery (Acute) History of knee surgery (Acute) History of kidney surgery (Chronic) Medical History (Last Reviewed 12/05/18 @ 17:54 by Sacha Regalado MD) Cervical dystonia (Acute) Chronic constipation (Acute) Parkinson disease (Chronic) Physical Therapy Inpatient Evaluation/Re-Eval M1 PT/OT-IP Prior Functional Status Start: 12/06/18 14:36 Freq: NEEDED Status: Active Protocol: Document 12/06/18 16:43 AW (Rec: 12/06/18 17:10 AW [email or web address]) Medical Review Prior Functional Status Medical History Reviewed Yes Diet/Fluid Consistency NPO Communication Pt speaks softly but clearly. Mobility and Gait Pt ambulated independently without assistive device in his neighborhood. He also enjoys cycling. Activities of Daily Living and IADL's Pt reports independence with all ADL's. Social History Household Members spouse Living Arrangements House Number of Floors (Floors) One Floor Number of Stairs To Enter/Railing? 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 He lives in [facility] with his spouse who is a lodging facilities attendant and is gone for up to two days at a time. During those intervals, Christian and several neighbors check on each other and help out as needed. M2 PT-IP Current Condition Start: 12/06/18 14:36 Freq: NEEDED Status: Active Protocol: Document 12/06/18 16:43 AW (Rec: 12/06/18 17:10 AW [email or web address]) Physical Therapy Current Condition Current Condition Evaluation Date 12/06/18 Treatment Diagnosis SBO, pancreatic mass, s/p exp lap, impaired transfers, gait Precautions Abdominal Surgery Precautions Log Roll Lifting Restrictions Gait Belt above Incisional Area Weight Bearing Status Weight Bearing Status Weight Bear as Tolerated M3 PT-IP Subjective Start: 12/06/18 14:36 Freq: NEEDED Status: Active Protocol: Document 12/06/18 16:43 AW (Rec: 12/06/18 17:10 AW [email or web address]) Subjective Physical Therapy Visit Type Type Initial Evaluation Visit Start Time 16:15 Visit Stop Time 16:42 Total Visit Minutes 27 Number of ENTERPRISE APPLICATION ADMINISTRATOR Visits 0 Physical Therapy Visit Comments Patient Comments Pt just returned from surgery at ~1300, has very little pain , and is ready to work with PT Patient Goals Pt would like to return home with spouse assist and get back to exercising and walking in his neighborhood. Therapy Pain Assessment Pain When Pain Assessed During Mobility Pain Present Pain Present Pain Reported Location Abdomen Intensity 1 Scale Used Numeric (1 - 10) Description Pulling M4 PT-IP Mobility and Gait Start: 12/06/18 14:36 Freq: NEEDED Status: Active Protocol: Document 12/06/18 16:43 AW (Rec: 12/06/18 17:10 AW [email or web address]) PT-Bed Mobility Assessment Rolling Type of Rolling Log Rolling Level of Assist Minimal Assistance 1 Person Assistance Supine to Sit Supine to Sit Minimal Assistance 1 Person Assistance Bedrails Scooting Scooting to Edge of Bed Standby Assistance PT-Transfer Assessment Sit to and From Stand Sit to and from Stand Contact Guard Assistance Equipment Transfer Assistive Device Gait Belt Front Wheeled Walker Transfers Transfer Destination Chair Transfer Technique Stand Step Pivot Transfer Ability Level of Assist Contact Guard Assistance Comments Mobility Comments Pt instructed in log roll technique. He was able to log roll to the left (consistent with home routine) with min assist and verbal cues to roll with shoulders and hips in line, to lift legs out of bed, and to push up to sitting EOB . All other transfers required CGA at most. Gait Assessment Gait Gait Assistance Required: Contact Guard Assist Distance (Feet) 10 Assistive Devices Assistive Device Gait Belt Front Wheeled Walker Gait Deviations General Gait Pattern Decreased Stride Length Decreased Feet Clearance Flexed Trunk Factors Limiting Gait Function Factors Limiting Gait Function Decreased Activity Tolerance Decreased Strength Comments Gait Comments Pt ambulated from bed to window to bedside chair with CGA and FWW. No losses of balance observed. CGA for steadiness. PT-Balance Assessment Sitting Balance and Reactions Static Sitting Balance Ability Good Dynamic Sitting Balance Ability Good Standing Balance and Reactions Static Standing Balance Ability Fair Dynamic Standing Balance Ability Fair M5 PT-IP Objective Assessments Start: 12/06/18 14:36 Freq: NEEDED Status: Active Protocol: Document 12/06/18 16:43 AW (Rec: 12/06/18 17:10 AW [email or web address]) Orientation Orientation/Cognition Level of Alertness Alert Orientation Name Month Place Situation Safety Awareness Understands Safety Issues Memory Description No Deficits Noted Comments Pt has hypophonia characteristic of PD. Gross Range of Motion Upper Extremity ROM Assessment Within Functional Limits Lower Extremity ROM Assessment Within Functional Limits Strength Upper Extremity Strength Assessment Within Functional Limits Lower Extremity Strength Assessment Within Functional Limits Comments Strength Comments Pt is very active at baseline but appears somewhat cachectic . Coordination Assessment Gross Coordination Gross Coordination WNL Sensation Assessment Sensation Gross Sensation WNL Muscle Tone Muscle Tone WNL No Comments Muscle Tone Comments Pt has Parkinson's disease with evident rigidity of cervical and upper thoracic spine M6 PT-IP Treatment Start: 12/06/18 14:36 Freq: NEEDED Status: Active Protocol: Document 12/06/18 16:43 AW (Rec: 12/06/18 17:10 AW [email or web address]) Physical Therapy Treatment Education Education Provided Precautions Safety M7 PT-IP Assessment and Plan Start: 12/06/18 14:36 Freq: NEEDED Status: Active Protocol: Document 12/06/18 16:43 AW (Rec: 12/06/18 17:10 AW [email or web address]) PT Summary Assessment and Plan Potential Rehabilitation Potential Good Status of Condition at Evaluation Evolving Summary Impairments Pain Balance Tone Bed Mobility Transfers Gait Activity Tolerance Assessment Summary Christian is an active 78 yo man with history of Parkinson's disease who is seen on POD0 following exploratory lap for small bowel obstruction. When contacted, he was visiting with his and daughters. He is able to follow multi- step commands. PT provided education on lifting restrictions following abdmoninal surgery and on log roll technique for bed mobility. Pt able to demonstrate log roll with min A and frequent verbal cues. Transfer from EOB to bedside chair required CGA for steadiness. Pt is debilitated from baseline but has good rehab potential. At this time, PT recommendation is for discharge to home with 24/7 spouse support when medically cleared for discharge. Goals Bed Mobility Goal Standby Assistance Transfer Goal Independent Gait Goal Standby Assistance Gait Distance 100 feet Frequency of Treatment Frequency Of Treatment Once a Day Treatment Plan Physical Therapy Treatment Plan Bed Mobility Training Transfer Training Gait Training Therapeutic Exercise Balance Retraining Post Op Education Discharge Planning Hot or Cold Pack Neuromuscular Re-ed Coordination Retraining Manual Therapy Recommendations To Nursing Amount of Assist Needed 1 Person Assist Discharge Recommendations PT Discharge Recommendations Home with 24/7 Assist Equipment Needed for Home Before Pt may need FWW for home use. Discharge
[2018-12-06] MEDS: METOCLOPRAMIDE 10 MG/2 ML INJ IV ×2 (17:21→21:05)
--- NOTE | 2018-12-06 18:32 | P.PN_ITS ---
Subjective Date Patient Seen: 12/06/18 Time Patient Seen: 13:00 Interval history: Mr. Sena is a 78-year-old male with past medical history Parkinson's disease and chronic constipation was admitted for small-bowel obstruction. He went to the operating room this morning where an exploratory laparotomy and lysis of adhesions was performed. No bowel needed to be resected, and the patient is doing well after surgery. He feels much improved after operative interventions, and was even tolerating small sips of water with medications. Exam Vital Signs (past 8 hours): - 12/06/18 10:45 12/06/18 12:20 12/06/18 12:25 Temperature 98.4 F 98.1 F 98.2 F Pulse Rate 73 75 81 Respiratory Rate 22 15 15 Blood Pressure 137/74 166/80 H 164/79 H Pulse Oximetry 95 96 95 12/06/18 12:30 12/06/18 12:35 12/06/18 12:45 Temperature 98.2 F 98.2 F 99.1 F Pulse Rate 80 83 82 Respiratory Rate 15 16 18 Blood Pressure 166/81 H 158/80 H 160/86 H Pulse Oximetry 94 94 95 12/06/18 13:15 12/06/18 13:45 12/06/18 14:45 Temperature 98.8 F 99 F 99.3 F Pulse Rate 80 80 77 Respiratory Rate 18 18 18 Blood Pressure 157/84 H 159/72 H 146/84 H Pulse Oximetry 95 94 95 12/06/18 16:46 12/06/18 17:08 12/06/18 17:31 Temperature 98.8 F Pulse Rate 81 81 Respiratory Rate 18 16 Blood Pressure 136/79 Pulse Oximetry 95 93 93 Fraction of Inspired Oxygen 21 Oxygen Delivery Method Room Air Oxygen Flow Rate 0 Narrative Exam Narrative: GENERAL APPEARANCE: Cachectic appearing male, but appears acutely improved from prior exams. SKIN: Inspection of the skin reveals no rashes, ulcerations or petechiae. HEENT: The sclerae were anicteric and conjunctivae were pink and moist. Extraoc ular movements were intact and pupils were equal, round with normal accommodation. External inspection of the ears and nose showed no scars, lesions, or masses. Lips, teeth, and gums showed normal mucosa. The oral mucosa, hard and soft palate, tongue and posterior pharynx were unremarkable. NECK: Supple and symmetric. There was no thyroid enlargement, and no tenderness, or masses were felt. CHEST: Normal AP diameter and normal contour without any kyphoscoliosis. LUNGS: Auscultation of the lungs revealed no wheezes, rhonchi, or rales. CARDIOVASCULAR: There was a regular rate and rhythm without any murmurs, gallops, rubs. Peripheral pulses were 2+ and symmetric. ABDOMEN: Soft, appropriately tender near incision site. MUSCULOSKELETAL: There was no tenderness or effusions noted. Muscle strength and tone were normal. EXTREMITIES: No cyanosis, clubbing or edema. NEUROLOGIC: Alert and oriented x 3. Reserved. Slow purposeful movements and occasional tremor noted. Strength is +5/5 in the Upper Extremities and Lower Extremities Bilaterally. Sensation to touch was normal. Objective Labs Result Diagrams: 12/06/18 05:25 12/06/18 05:25 Labs: Laboratory Results - last 24 hr 12/06/18 12/06/18 05:25 05:25 WBC 7.8 RBC 3.94 L Hgb 12.9 L Hct 37.1 L MCV 94.2 MCH 32.7 MCHC 34.7 RDW 13.6 Plt Count 216 Neut % (Auto) 87.3 H Lymph % (Auto) 6.7 L [place] % (Auto) 5.6 Eos % (Auto) 0.1 L Baso % (Auto) 0.3 Neut # (Auto) 6900 Lymph # (Auto) 500 L [place] # (Auto) 400 Eos # (Auto) 0 Baso # (Auto) 0 Sodium 138 Potassium 3.7 Chloride 98 Carbon Dioxide 33 H BUN 25 H Creatinine 0.80 Estimated GFR > 60.0 BUN/Creatinine Ratio 31.3 H Glucose 133 H Calcium 8.8 Magnesium 2.2 Assessment & Plan Assessment & Plan narrative: Christian Sena is a 78-year-old male with past medical history of well-controlled Parkinson's and chronic constipation, admitted to Medicine for small-bowel obstruction and further workup of pancreatic mass, now s/p exploratory laparotomy with lysis of adhesions, and feeling much improved. 1. Acute small-bowel obstruction, present on admission -secondary to adhesions after operative intervention today. He no longer has an NG tube and is tolerating minimal sips of water. -appreciate surgical assistance with management -continue diet per surgical recommendations, advance as tolerated. -monitor nutritional status -continue to monitor bowel movements, we will hold any promotility agents at this time, although he can get as needed suppositories or enemas as he still has a large amount of stool burden noted in his colon. -Zofran as needed for nausea 2. Pancreatic head mass -as seen on abdominal CT. He appears cachectic and has weight loss over the past few months, and given the appearance on imaging this is most likely malignant. He will need an MRI with pancreatic protocol, as well as full imaging of his chest and head for further workup. The surgeon noted during the operation that there were no palpable lymph nodes, and no visible hepatic metastases. -obtain MRI once stable from bowel obstruction -f/u CA 19-9 -discuss with oncology outpatient follow up for this pancreatic mass. 3.Chronic Parkinson's disease, stable. -patient is quite functional and ambulates daily and reports no falls. He manifests masked face ease and tremors but has no evidence of impaired swallowing. -continue patient's home medication of carbidopa levodopa 4 times daily and rasagiline 1 mg daily once able to tolerate p.o. DVT: HSQ BID Dispo: Remains inpatient.
[2018-12-06] MEDS: GABAPENTIN 300 MG CAPSULE PO (21:05)
[2018-12-06] MEDS: MINERAL OIL 1 EACH ENEMA PR (21:05)
[2018-12-07] VITALS (7 sets, daily range): BP systolic 124–157; BP diastolic 67–74; PULSE 70–77; RESP 15–18; TEMP 37.1–37.4; O2SAT 94–97; BMI 21.4
--- NOTE | 2018-12-07 04:46 | PC.NURSE ---
Pt post day 1 of exploratory lap for complete mechanical small bowel obstruction. Pt with mid line abd incision. ABD dressing with tegaderm, CD&I. Pt denies abd pain, cramping, nausea. NPO except for ice chips. Clarify with provider if PO meds allowed. Mineral oil enema given last night, no results yet. Pt ordered for con't pulse ox. Sats 96% on room air. Pt with hx Parkinson's, essential tremors intermittantly present in both upper and lower extremities. Pt needs assist with PO intake and personal needs to due weakness. Pt turned q2hrs overnight to maintain skin integrity. Chen patent. Pt needs MRI.
[2018-12-07] MEDS: METOCLOPRAMIDE 10 MG/2 ML INJ IV ×3 (05:51→20:47)
[2018-12-07] MEDS: SODIUM CHLORIDE 0.9% 1,000 ML 125 ML IV (05:52)
[2018-12-07] MEDS: DEXTROSE 5%-0.45NS W/KCL 20MEQ 1,000 ML 84 MEQ IV ×2 (08:00→20:47)
[2018-12-07] MEDS: ASCORBIC ACID 500 MG TABLET PO (08:01)
[2018-12-07] MEDS: GABAPENTIN 300 MG CAPSULE PO ×2 (08:01→20:46)
[2018-12-07] MEDS: HEPARIN 5,000 UNIT/ML VIAL 5000 UNIT SUBCUT ×2 (08:02→22:04)
[2018-12-07] MEDS: CARBIDOPA-LEVODOPA 25/100 TABLET 1 EACH PO ×4 (08:02→20:46)
--- NOTE | 2018-12-07 08:06 | PM.PN.1 ---
Subjective Date Patient Seen: 12/07/18 Time Patient Seen: 08:07 Interval history: Patient is 1 day post exploratory laparotomy enterolysis for complete mechanical small bowel obstruction he is resting comfortably in bed has no nausea vomiting. He is tolerating a clear liquid diet. No bowel movement yet. Exam Vital Signs (past 8 hours): - 12/07/18 05:06 Temperature 99.3 F Pulse Rate 73 Respiratory Rate 15 Blood Pressure 137/70 Pulse Oximetry 97 Fraction of Inspired Oxygen 21 Oxygen Delivery Method Room Air Oxygen Flow Rate 0 Narrative Exam Narrative: Patient is afebrile. Alert and oriented. No complaints. Abdomen is soft very mild the distended. Dressing is dry and intact. Objective Labs Result Diagrams: 12/06/18 05:25 12/06/18 05:25 Assessment & Plan Assessment & Plan narrative: Patient is 1 day postop exploratory laparotomy release of small-bowel obstruction. There was no resection. He is stable starting on a clear liquid diet today. Patient had a large amount of inspissated stool in his colon. We will be working on evacuating his colon with enemas and suppositories. Is also on a stool softener. I think this is largely related to his Parkinson's disease.
[2018-12-07 09:09] LABS: Add Manual Diff / Slide Review NO; Basophils Absolute Auto 0 /uL (0-100); Basophils Percent Auto 0.2 % (0-2); Eosinophils Absolute Auto 100 /uL (0-450); Hematocrit 36.8 % (41-53); Hemoglobin 12.4 g/dL (13.5-17.5); Lymphocytes Absolute Auto 400 /uL (1100-4500); Lymphocytes Percent Auto 6.7 % (25-40); Mean Corpuscular HGB Conc 33.8 % (30-36); Mean Corpuscular Hemoglobin 32.6 PG (26-34); Mean Corpuscular Volume 96.4 fL (80-100); Monocytes Absolute Auto 500 /uL (0-900); Monocytes Percent Auto 7.9 % (3-14); Neutrophils Absolute Auto 5500 /uL (1500-7000); Neutrophils Percent Auto 83.2 % (50-75); Platelet Count 205 X10^3/uL (150-400); Red Blood Cell Count 3.82 X10^6/uL (4.5-5.9); Red Cell Distribution Width 13.2 % (11.6-14.8); White Blood Cell Count 6.6 X10^3/uL (4.5-11.0)
[2018-12-07 09:13] LABS: BUN Creatinine Ratio 27.8 (6-22); Blood Urea Nitrogen 25 mg/dL (9-20); Calcium 8.4 mg/dL (8.4-10.2); Carbon Dioxide 31 mmol/L (22-32); Chloride 103 mmol/L (98-107); Estimated Glomerular Filt Rate > 60.0 mL/min (>60); Glucose 91 mg/dL (80-110); HEMOLYSIS < 15 (0-50); Magnesium 2.2 mg/dL (1.6-2.3); Potassium 3.7 mmol/L (3.4-5.1); Sodium 140 mmol/L (137-145)
[2018-12-07] MEDS: BISACODYL 10 MG SUPP PR ×2 (09:31→20:47)
--- NOTE | 2018-12-07 10:30 | PT.IPTN ---
Current Diagnoses Unspecified intestinal obstruction, unspecified as to partial versus complete obstruction (12/05/18) Surgery Performed Operation Date: 12/06/18 10:00 Actual Procedures p Exploratory Laparotomy, lysis of adhesions for complete mechanical small bowel obstruction - Sacha Regalado MD Physical Therapy Treatment Note M2 PT-IP Current Condition Start: 12/06/18 14:36 Freq: NEEDED Status: Active Protocol: Document 12/06/18 16:43 AW (Rec: 12/06/18 17:10 AW [email or web address]) Physical Therapy Current Condition Current Condition Evaluation Date 12/06/18 Treatment Diagnosis SBO, pancreatic mass, s/p exp lap, impaired transfers, gait Precautions Abdominal Surgery Precautions Log Roll Lifting Restrictions Gait Belt above Incisional Area Weight Bearing Status Weight Bearing Status Weight Bear as Tolerated M3 PT-IP Subjective Start: 12/06/18 14:36 Freq: NEEDED Status: Active Protocol: Document 12/07/18 10:26 RS (Rec: 12/07/18 10:35 RS [id number]) Subjective Physical Therapy Visit Type Type Treatment Note Visit Start Time 10:00 Visit Stop Time 10:30 Total Visit Minutes 30 Physical Therapy Visit Comments Patient Comments On first attempt pt wanting more time after having his first clear liquids meal for breakfast this mroning. On 2nd attempt pt very agreeable to participate in therapy. Therapy Pain Assessment Pain When Pain Assessed At Rest Pain Present Pain Present Denied Pain M4 PT-IP Mobility and Gait Start: 12/06/18 14:36 Freq: NEEDED Status: Active Protocol: Document 12/07/18 10:26 RS (Rec: 12/07/18 10:35 RS [id number]) PT-Bed Mobility Assessment Rolling Type of Rolling Log Rolling Roll to Right Level of Assist Minimal Assistance 1 Person Assistance Supine to Sit Supine to Sit Minimal Assistance 1 Person Assistance Scooting Scooting to Edge of Bed Standby Assistance PT-Transfer Assessment Sit to and From Stand Sit to and from Stand Standby Assistance Equipment Transfer Assistive Device Gait Belt Front Wheeled Walker Transfers Transfer Destination Chair Transfer Technique walked Transfer Ability Level of Assist Standby Assistance Comments Mobility Comments Pt able to remember rationale for log roll technique but still needing min A and step by step cues for technique. Once sitting EOB pt is entirely SBA for all other mobility, pt just moves slow, needs extra time. Gait Assessment Gait Gait Assistance Required: Standby Assistance Distance (Feet) 125 Assistive Devices Assistive Device Gait Belt Front Wheeled Walker Gait Deviations General Gait Pattern Decreased Feet Clearance Flexed Trunk Factors Limiting Gait Function Factors Limiting Gait Function Decreased Activity Tolerance Decreased Strength Comments Gait Comments Pt able to walk from room to family waiting room and back without stopping though did admit to being tired afterward . PT-Balance Assessment Sitting Balance and Reactions Static Sitting Balance Ability Normal Dynamic Sitting Balance Ability Good Standing Balance and Reactions Static Standing Balance Ability Good Dynamic Standing Balance Ability Fair Device Used FWW M5 PT-IP Objective Assessments Start: 12/06/18 14:36 Freq: NEEDED Status: Active Protocol: Document 12/06/18 16:43 AW (Rec: 12/06/18 17:10 AW [email or web address]) Orientation Orientation/Cognition Level of Alertness Alert Orientation Name Month Place Situation Safety Awareness Understands Safety Issues Memory Description No Deficits Noted Comments Pt has hypophonia characteristic of PD. Gross Range of Motion Upper Extremity ROM Assessment Within Functional Limits Lower Extremity ROM Assessment Within Functional Limits Strength Upper Extremity Strength Assessment Within Functional Limits Lower Extremity Strength Assessment Within Functional Limits Comments Strength Comments Pt is very active at baseline but appears somewhat cachectic . Coordination Assessment Gross Coordination Gross Coordination WNL Sensation Assessment Sensation Gross Sensation WNL Muscle Tone Muscle Tone WNL No Comments Muscle Tone Comments Pt has Parkinson's disease with evident rigidity of cervical and upper thoracic spine M6 PT-IP Treatment Start: 12/06/18 14:36 Freq: NEEDED Status: Active Protocol: Document 12/06/18 16:43 AW (Rec: 12/06/18 17:10 AW [email or web address]) Physical Therapy Treatment Education Education Provided Precautions Safety M7 PT-IP Assessment and Plan Start: 12/06/18 14:36 Freq: NEEDED Status: Active Protocol: Document 12/07/18 10:26 RS (Rec: 12/07/18 10:35 RS [id number]) PT Summary Assessment and Plan Potential Rehabilitation Potential Good Status of Condition at Evaluation Evolving Summary Impairments Pain Balance Tone Bed Mobility Transfers Gait Activity Tolerance Progress Towards Goals Progressing Toward Goals Assessment Summary Pt is making great functional gains so far, anticipate this trend to continue with each session. Pt able to walk over 100ft after only walking 10ft yesterday. Pt will still be safe for discharge directly home but will need assist from /family. Will continue to monitor pt's progress and make a final follow-therapy recommendation closer to discharge but currently recommending HHPT. Goals Bed Mobility Goal Standby Assistance Transfer Goal Independent Gait Goal Independent Gait Distance 100 feet Frequency of Treatment Frequency Of Treatment Once a Day Treatment Plan Physical Therapy Treatment Plan Bed Mobility Training Transfer Training Gait Training Therapeutic Exercise Balance Retraining Post Op Education Discharge Planning Hot or Cold Pack Neuromuscular Re-ed Coordination Retraining Manual Therapy Other Recommendations and Next Treatment bed mobility, functional Focus strengthening, might need CG training Recommendations To Nursing Amount of Assist Needed 1 Person Assist Discharge Recommendations PT Discharge Recommendations Home with 04/11 Assist Equipment Needed for Home Before Pt may need FWW for home use. Discharge
--- NOTE | 2018-12-07 10:40 | PC.NURSE ---
Addendum entered by Genia Cortez R.N. 12/07/18 14:25: Tolerated clear liquids at lunch without issue. Diet advanced to full liquids for dinner based on conversation with Dr Regalado this morning. Addendum entered by Genia Cortez R.N. 12/07/18 12:30: Patient had a medium stool that was partly hard formed stool and partly loose. Up in chair working on lunch. So far continues to tolerate without issue. Informed patient and his family that the MRI has been cancelled for now. Original Note: Shift summary: Alert and oriented X3. Tolerated clear liquids for breakfast without N/V or increased abd discomfort. Abd dressing C/D/I. Bowel tones +, hypoactive. Denies flatus. Given Dulcolax suppository this morning. Patient ambulated hallway with PT and is sitting up in chair visiting with family. 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 Got the ok to d/c Q6H CBG's now that patient is no longer NPO. Per Fabricio, ok to advance to full liquids if patient tolerates clears again at lunchtime. Dr Regalado said he'd like the patient to recover a little more from his surgery before proceeding with MRI- this was relayed to Dr Rodrigues who planned to cancel the exam. Patient agrees to call for assist back to bed/BR. Light within reach, chair alarm on.
--- NOTE | 2018-12-07 10:44 | PM.PN.1 ---
Subjective Date Patient Seen: 12/07/18 Time Patient Seen: 10:44 Interval history: Mr. Sena is a 78-year-old male with past medical history Parkinson's disease and chronic constipation was admitted for small-bowel obstruction. He is now postoperative day 1 Status post exploratory laparotomy and lysis of adhesions. No bowel needed to be resected, and the patient is doing well after surgery. He feels much improved after operative interventions, and he is tolerating a liquid diet today. He has not had a bowel movement yet, but we are working on improving his bowel regimen. Given recent operative interventions, we should probably wait until outpatient to do a pancreatic MRI. I have placed a call to the oncologist's office to see if he should be evaluated by specialty surgery [facility], or if they would like to see him in their office. He denies any fevers or chills, and only complains minimal abdominal pain around his incision. He denies any nausea or vomiting with liquids. He otherwise feels much improved. Exam Vital Signs (past 8 hours): - 12/07/18 05:06 12/07/18 08:17 12/07/18 08:32 Temperature 99.3 F 99.4 F Pulse Rate 73 70 Respiratory Rate 15 16 Blood Pressure 137/70 135/68 Pulse Oximetry 97 95 95 Fraction of Inspired Oxygen 21 Oxygen Delivery Method Room Air Oxygen Flow Rate 0 Narrative Exam Narrative: GENERAL APPEARANCE: Cachectic appearing male, but appears acutely improved from prior exams. SKIN: Inspection of the skin reveals no rashes, ulcerations or petechiae. HEENT: The sclerae were anicteric and conjunctivae were pink and moist. Extraocular movements were intact and pupils were equal, round with normal accommodation. External inspection of the ears and nose showed no scars, lesions, or masses. Lips, teeth, and gums showed normal mucosa. The oral mucosa, hard and soft palate, tongue and posterior pharynx were unremarkable. NECK: Supple and symmetric. There was no thyroid enlargement, and no tenderness, or masses were felt. CHEST: Normal AP diameter and normal contour without any kyphoscoliosis. LUNGS: Auscultation of the lungs revealed no wheezes, rhonchi, or rales. CARDIOVASCULAR: There was a regular rate and rhythm without any murmurs, gallops, rubs. Peripheral pulses were 2+ and symmetric. ABDOMEN: Soft, appropriately tender near incision site. Dressing is clear and dry. MUSCULOSKELETAL: There was no tenderness or effusions noted. Muscle strength and tone were normal. EXTREMITIES: No cyanosis, clubbing or edema. NEUROLOGIC: Alert and oriented x 3. Reserved. Slow purposeful movements and occasional tremor noted. Strength is +5/5 in the Upper Extremities and Lower Extremities Bilaterally. Sensation to touch was normal. Objective Labs Result Diagrams: 12/07/18 08:15 12/07/18 08:15 Labs: Laboratory Results - last 24 hr 12/07/18 12/07/18 08:15 08:15 WBC 6.6 RBC 3.82 L Hgb 12.4 L Hct 36.8 L MCV 96.4 MCH 32.6 MCHC 33.8 RDW 13.2 Plt Count 205 Neut % (Auto) 83.2 H Lymph % (Auto) 6.7 L [place] % (Auto) 7.9 Eos % (Auto) 2.0 Baso % (Auto) 0.2 Neut # (Auto) 5500 Lymph # (Auto) 400 L [place] # (Auto) 500 Eos # (Auto) 100 Baso # (Auto) 0 Sodium 140 Potassium 3.7 Chloride 103 Carbon Dioxide 31 BUN 25 H Creatinine 0.90 Estimated GFR > 60.0 BUN/Creatinine Ratio 27.8 H Glucose 91 Calcium 8.4 Magnesium 2.2 Assessment & Plan Assessment & Plan narrative: Christian Sena is a 78-year-old male with past medical history of well-controlled Parkinson's and chronic constipation, admitted to Medicine for small-bowel obstruction and further workup of pancreatic mass, now s/p exploratory laparotomy with lysis of adhesions, and feeling much improved. 1. Acute small-bowel obstruction, present on admission -POD #1 s/p ex-lap with lysis of adhesions, now improved. Tolerating CLD. -appreciate surgical assistance with management - ADAY -continue diet per surgical recommendations, advance as tolerated. -monitor nutritional status -continue to monitor bowel movements, we will hold any promotility agents at this time, although he can get as needed suppositories or enemas as he still has a large amount of stool burden noted in his colon. -Zofran as needed for nausea 2. 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 He appears cachectic and has weight loss over the past few months, and given the appearance on imaging this is most likely malignant. He will need an MRI with pancreatic protocol, as well as full imaging of his chest and head for further workup. The surgeon noted during the operation that there were no palpable lymph nodes, and no visible hepatic metastases. -obtain MRI once stable from bowel obstruction, better to be done as outpatient. -CA 19-9 pending -discussed with oncology office today, appropriate for outpatient follow up. 3.Chronic Parkinson's disease, stable. -patient is quite functional and ambulates daily and reports no falls. He manifests masked face ease and tremors but has no evidence of impaired swallowing. -continue patient's home medication of carbidopa levodopa 4 times daily and rasagiline 1 mg daily.. DVT: HSQ BID Dispo: Remains inpatient.
[2018-12-07] MEDS: DOCUSATE 100 MG CAPSULE PO ×2 (11:59→20:46)
--- NOTE | 2018-12-07 12:07 | DIET.PN ---
Dietary Progress Note Assessment: 78y M c Parkinsons and hx of chronic constipation/bowel blockage referred to nutrition for MNA 11 (at risk for malnutrition). Pt had many questions on how to feed pt once home. Would like a plan. Concerned about his fiber intake, may be too high, causing constipation). Saw dietitian at [facility] last fall to address wt loss and parkinsons, pt has not been able to gain wt. Pt not a junk food eater, likes F/V. has been trying to push sugar (pies, cookies) to fatten him up. HT: 180.3cm WT: 69.8kg (90% IBW) BMI: 21.6 (low for age) Nutrition Diagnosis: Moderate Chronic PCM r/t progression of Parkinsons c SBO and pancreatic mass aeb <75% EER for >1mo, chronic constipation, BMI 21.5 (low for age), mild to moderate losses in subcutaneous fat and muscle system wide, inability to maintain wt. Interventions: Printing up diet reccs for pt and caregiver. Since pt on levodopa 4x/d and dietary AAs compete 1:1 for uptake, recc largest PRO meal at dinner (ex. 20g B, 20g L, 30g D). EERs: 2100kcal, 70g PRO (1.0g/kg), 2 L fluids (30mL/kg) Monitoring/Evaluations: wt, diet advancement and tolerance
[2018-12-08] VITALS (10 sets, daily range): BP systolic 125–157; BP diastolic 60–77; PULSE 76–81; RESP 15–23; TEMP 36.2–37.7; O2SAT 93–97
--- NOTE | 2018-12-08 00:10 | PC.NURSE ---
Addendum entered by Pham Moralez R.N. 12/08/18 05:42: Catheter d'cd as is 2nd day post op; tolerated well. Instructed in sx/prevention of UTI. Denies any pain. Addendum entered by Pham Moralez R.N. 12/08/18 00:16: Calf SCD's are on. Original Note: Patient is alert and oriented. Slightly [id number]. Has Parkinson's so noted mouth movement/extremities somewhat rigid and has tremor in left UE. Breath sounds diminished but CTA with RA sat of 94%. HRR. Denies nausea. BT hypoactive; denies flatus; abdomen soft but tender. Indwelling catheter is patent; urine is dark yellow. Dressing to abdomen is CDI. Needing assist to reposition in bed so is turned q2h or as he requests. Denies pain at present time. HOB elevated at 30 degrees as per MD order. Fall risk score is high and bed alarm is activated.
[2018-12-08] MEDS: METOCLOPRAMIDE 10 MG/2 ML INJ IV ×3 (05:35→23:36)
[2018-12-08 05:51] LABS: Add Manual Diff / Slide Review NO; Basophils Absolute Auto 0 /uL (0-100); Basophils Percent Auto 0.4 % (0-2); Eosinophils Absolute Auto 300 /uL (0-450); Eosinophils Percent Auto 3.4 % (2-4); Hematocrit 32.7 % (41-53); Hemoglobin 11.1 g/dL (13.5-17.5); Lymphocytes Absolute Auto 400 /uL (1100-4500); Lymphocytes Percent Auto 4.8 % (25-40); Mean Corpuscular HGB Conc 33.8 % (30-36); Mean Corpuscular Hemoglobin 32.5 PG (26-34); Mean Corpuscular Volume 96.2 fL (80-100); Monocytes Absolute Auto 700 /uL (0-900); Monocytes Percent Auto 7.6 % (3-14); Neutrophils Absolute Auto 7300 /uL (1500-7000); Neutrophils Percent Auto 83.8 % (50-75); Platelet Count 192 X10^3/uL (150-400); Red Cell Distribution Width 13.2 % (11.6-14.8); White Blood Cell Count 8.7 X10^3/uL (4.5-11.0)
[2018-12-08 05:56] LABS: BUN Creatinine Ratio 21.4 (6-22); Blood Urea Nitrogen 15 mg/dL (9-20); Carbon Dioxide 27 mmol/L (22-32); Chloride 106 mmol/L (98-107); Estimated Glomerular Filt Rate > 60.0 mL/min (>60); Glucose 131 mg/dL (80-110); HEMOLYSIS < 15 (0-50); Magnesium 1.9 mg/dL (1.6-2.3); Potassium 3.7 mmol/L (3.4-5.1); Sodium 137 mmol/L (137-145)
[2018-12-08] MEDS: DEXTROSE 5%-0.45NS W/KCL 20MEQ 1,000 ML 84 MEQ IV ×2 (07:15→19:10)
[2018-12-08] MEDS: CARBIDOPA-LEVODOPA 25/100 TABLET 1 EACH PO ×4 (07:58→20:08)
[2018-12-08] MEDS: GABAPENTIN 300 MG CAPSULE PO ×2 (07:58→20:07)
[2018-12-08] MEDS: ASCORBIC ACID 500 MG TABLET PO (07:59)
[2018-12-08] MEDS: HEPARIN 5,000 UNIT/ML VIAL 5000 UNIT SUBCUT ×2 (07:59→20:07)
[2018-12-08] MEDS: DOCUSATE 100 MG CAPSULE PO ×2 (07:59→22:10)
--- NOTE | 2018-12-08 09:07 | PC.NURSE ---
Addendum entered by Kaykay Salvador R.N. 12/08/18 14:24: Spoke with Dr. Rodrigues, Pt's requested ordering home med of clonazepam 0.5mg po for sleep as pt takes every night at home. Also updated with latest BM. Hold Mineral Oil enema prn for now. Addendum entered by Kaykay Salvador R.N. 12/08/18 13:59: Pt up to BR, voided another 200mls of concentrated urine. Had moderate BM that was loose brown and 3 golf ball sized BM. Addendum entered by Kaykay Salvador R.N. 12/08/18 11:46: Pt now sitting back in chair with chair alarm on. No result from supp given earlier. Rec'd bottle of POM Rasagiline, sent to pharmacy to [facility], already ordered in JUN. Addendum entered by Kaykay Salvador R.N. 12/08/18 10:12: At 1000, pt assisted back to bed with 1PA using FWW and gait belt. Pt lying on left side. AM scheduled Bisacodyl Supp given at 1005. Call light within reach. Original Note: Day Shift- Pt A&OX4, able to make needs known using call light. High fall risk precautions in place with bed/chair alarm on. Rates 1/10 dull aching to abd incision area while sitting up in the chair having breakfast. Took AM meds one at a time with water, does need a few sips of water to swallow with each med. Plan for schedule Bisacodyl supp when pt back to bed. OOB with 1PA to BR, passed moderate amount of flatus, no BM. Abd incision covered with bulky abd pad dressing that is CDI. IVF infusing well to left FA PIV.
[2018-12-08] MEDS: BISACODYL 10 MG SUPP PR ×2 (10:05→22:09)
--- NOTE | 2018-12-08 11:03 | PM.PN.1 ---
Subjective Date Patient Seen: 12/08/18 Time Patient Seen: 08:00 Interval history: Mr. Sena is a 78-year-old male with past medical history Parkinson's disease and chronic constipation was admitted for small-bowel obstruction. He is now postoperative day 2 Status post exploratory laparotomy and lysis of adhesions. No bowel needed to be resected, and the patient is doing well after surgery. He feels much improved after operative interventions, and he is tolerating a full liquid diet. He has not had a bowel movement yet, but we are working on improving his bowel regimen. He did pass gas this morning. He denies any fevers or chills, and only complains minimal abdominal pain around his incision. He denies any nausea or vomiting with his diet. He otherwise feels much improved. He has a follow up scheduled with Oncology for December 15 at 3:00 p.m.. Exam Vital Signs (past 8 hours): - 12/08/18 04:00 12/08/18 07:45 12/08/18 07:55 Temperature 98.7 F 98.1 F Pulse Rate 80 76 Respiratory Rate 19 16 Blood Pressure 146/72 H 141/66 H Pulse Oximetry 95 93 93 Fraction of Inspired Oxygen 21 Oxygen Delivery Method Room Air Oxygen Flow Rate 0 Narrative Exam Narrative: GENERAL APPEARANCE: Cachectic appearing male, but appears acutely improved from prior exams. SKIN: Inspection of the skin reveals no rashes, ulcerations or petechiae. HEENT: The sclerae were anicteric and conjunctivae were pink and moist. Extraocular movements were intact and pupils were equal, round with normal accommodation. External inspection of the ears and nose showed no scars, lesions, or masses. Lips, teeth, and gums showed normal mucosa. The oral mucosa, hard and soft palate, tongue and posterior pharynx were unremarkable. NECK: Supple and symmetric. There was no thyroid enlargement, and no tenderness, or masses were felt. CHEST: Normal AP diameter and normal contour without any kyphoscoliosis. LUNGS: Auscultation of the lungs revealed no wheezes, rhonchi, or rales. CARDIOVASCULAR: There was a regular rate and rhythm without any murmurs, gallops, rubs. Peripheral pulses were 2+ and symmetric. ABDOMEN: Soft, appropriately tender near incision site. Dressing is clear and dry. MUSCULOSKELETAL: There was no tenderness or effusions noted. Muscle strength and tone were normal. EXTREMITIES: No cyanosis, clubbing or edema. NEUROLOGIC: Alert and oriented x 3. Reserved. Slow purposeful movements and occasional tremor noted. Strength is +5/5 in the Upper Extremities and Lower Extremities Bilaterally. Sensation to touch was normal. Objective Labs Result Diagrams: 12/08/18 05:30 12/08/18 05:30 Labs: Laboratory Results - last 24 hr 12/08/18 12/08/18 05:30 05:30 WBC 8.7 RBC 3.40 L Hgb 11.1 L Hct 32.7 L MCV 96.2 MCH 32.5 MCHC 33.8 RDW 13.2 Plt Count 192 Neut % (Auto) 83.8 H Lymph % (Auto) 4.8 L [place] % (Auto) 7.6 Eos % (Auto) 3.4 Baso % (Auto) 0.4 Neut # (Auto) 7300 H Lymph # (Auto) 400 L [place] # (Auto) 700 Eos # (Auto) 300 Baso # (Auto) 0 Sodium 137 Potassium 3.7 Chloride 106 Carbon Dioxide 27 BUN 15 Creatinine 0.70 Estimated GFR > 60.0 BUN/Creatinine Ratio 21.4 Glucose 131 H Calcium 8.0 L Magnesium 1.9 Assessment & Plan Assessment & Plan narrative: Christian Sena is a 78-year-old male with past medical history of well-controlled Parkinson's and chronic constipation, admitted to Medicine for small-bowel obstruction and further workup of pancreatic mass, now s/p exploratory laparotomy with lysis of adhesions, and feeling much improved. 1. Acute small-bowel obstruction, present on admission -POD #2 s/p ex-lap with lysis of adhesions, now improved. Tolerating FLD. -appreciate surgical assistance with management -continue diet per surgical recommendations, advance as tolerated. -monitor nutritional status -continue to monitor bowel movements, continue as needed suppositories or enemas as he still has a large amount of stool burden noted in his colon. -Zofran or reglan as needed for nausea 2. 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 He appears cachectic and has weight loss over the past few months, and given the appearance on imaging this is most likely malignant. He will need an MRI with pancreatic protocol, as well as full imaging of his chest and head for further workup. The surgeon noted during the operation that there were no palpable lymph nodes, and no visible hepatic metastases. -obtain MRI once stable from bowel obstruction, better to be done as outpatient. -CA 19-9 pending -discussed with oncology office today, appropriate for outpatient follow up. Scheduled for 12/15/2018 at 3pm. 3.Chronic Parkinson's disease, stable. -patient is quite functional and ambulates daily and reports no falls. He manifests masked face ease and tremors but has no evidence of impaired swallowing. -continue patient's home medication of carbidopa levodopa 4 times daily and rasagiline 1 mg daily.. 4. Moderate chronic protein calorie malnutrition - secondary to progression of parkinsons, new SBO and pancreatic mass. He has losses in subcutaneous fat, >15 lb weight loss, appears cachectic in appearance and has current inability to maintain weight. DVT: HSQ BID Dispo: Remains inpatient, discharge once having bowel movements and once
--- NOTE | 2018-12-08 11:57 | PT.IIE ---
Current Diagnoses Unspecified intestinal obstruction, unspecified as to partial versus complete obstruction (12/05/18) Surgery Performed Operation Date: 12/06/18 10:00 Actual Procedures p Exploratory Laparotomy, lysis of adhesions for complete mechanical small bowel obstruction - Sacha Regalado MD Surgical History (Last Reviewed 12/05/18 @ 17:54 by Sacha Regalado MD) History of appendectomy (Acute) History of ear surgery (Acute) History of knee surgery (Acute) History of kidney surgery (Chronic) Medical History (Last Reviewed 12/05/18 @ 17:54 by Sacha Regalado MD) Cervical dystonia (Acute) Chronic constipation (Acute) Parkinson disease (Chronic) Physical Therapy Inpatient Evaluation/Re-Eval M1 PT/OT-IP Prior Functional Status Start: 12/06/18 14:36 Freq: NEEDED Status: Active Protocol: Document 12/06/18 16:43 AW (Rec: 12/06/18 17:10 AW [email or web address]) Medical Review Prior Functional Status Medical History Reviewed Yes Diet/Fluid Consistency NPO Communication Pt speaks softly but clearly. Mobility and Gait Pt ambulated independently without assistive device in his neighborhood. He also enjoys cycling. Activities of Daily Living and IADL's Pt reports independence with all ADL's. Social History Household Members spouse Living Arrangements House Number of Floors (Floors) One Floor Number of Stairs To Enter/Railing? 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 He lives in [facility] with his spouse who is a flight agent and is gone for up to two days at a time. During those intervals, Christian and several neighbors check on each other and help out as needed. M2 PT-IP Current Condition Start: 12/06/18 14:36 Freq: NEEDED Status: Active Protocol: Document 12/06/18 16:43 AW (Rec: 12/06/18 17:10 AW [email or web address]) Physical Therapy Current Condition Current Condition Evaluation Date 12/06/18 Treatment Diagnosis SBO, pancreatic mass, s/p exp lap, impaired transfers, gait Precautions Abdominal Surgery Precautions Log Roll Lifting Restrictions Gait Belt above Incisional Area Weight Bearing Status Weight Bearing Status Weight Bear as Tolerated M3 PT-IP Subjective Start: 12/06/18 14:36 Freq: NEEDED Status: Active Protocol: Document 12/08/18 10:55 [facility] (Rec: 12/08/18 11:57 [facility] [id number]) Subjective Physical Therapy Visit Type Type Treatment Note Visit Start Time 09:12 Visit Stop Time 09:40 Total Visit Minutes 28 Number of COPRA PROCESSOR Visits 0 Therapy Pain Assessment Pain When Pain Assessed During Mobility Pain Present Pain Present Pain Reported Location Abdomen Scale Used min pain per pt M4 PT-IP Mobility and Gait Start: 12/06/18 14:36 Freq: NEEDED Status: Active Protocol: Document 12/08/18 10:55 [facility] (Rec: 12/08/18 11:57 [facility] [id number]) PT-Transfer Assessment Sit to and From Stand Sit to and from Stand Contact Guard Assistance Equipment Transfer Assistive Device Gait Belt Front Wheeled Walker Comments Mobility Comments Pt stood from chair to walk with CGA and inc time. He had socks on for getting up. 4x sit<>stand CGA with cueing Gait Assessment Gait Gait Assistance Required: Contact Guard Assist Minimum Assistance Distance (Feet) 250 Assistive Devices Assistive Device None Gait Belt Front Wheeled Walker Gait Deviations General Gait Pattern Decreased Stride Length Decreased Feet Clearance Flexed Trunk Factors Limiting Gait Function Factors Limiting Gait Function Decreased Strength Poor Balance Comments Gait Comments Pt amb about 100ft with FWW with SBA then amb without AD 150ft CGA to occasional min A d/t L leaning. Pt reported he always has his shoes on in and out of the house. WHen shoes were put on. Pt amb about 8 ft in room in significantly improved steadiness and was able to stand from chair with improved steadiness. He required min A for shoes d/t typically using a shoe horn at home. M5 PT-IP Objective Assessments Start: 12/06/18 14:36 Freq: NEEDED Status: Active Protocol: Document 12/08/18 10:55 [facility] (Rec: 12/08/18 11:57 [facility] [id number]) Orientation Orientation/Cognition Level of Alertness Alert M6 PT-IP Treatment Start: 12/06/18 14:36 Freq: NEEDED Status: Active Protocol: Document 12/08/18 10:55 [facility] (Rec: 12/08/18 11:57 [facility] [id number]) Physical Therapy Treatment Education Education Provided Safety Other Treatments Other Treatment Performed NBOS standing, attempted tandem but pt unable M7 PT-IP Assessment and Plan Start: 12/06/18 14:36 Freq: NEEDED Status: Active Protocol: Document 12/08/18 10:55 [facility] (Rec: 12/08/18 11:57 [facility] [id number]) PT Summary Assessment and Plan Summary Progress Towards Goals Progressing Toward Goals Assessment Summary Pt demonstrated improved tolerance with gait today and was able to try ambulation without AD. After learning pt wears shoes at all times, pt had significantly improved stability and greater ease with sit to stand. He is likely to continue with mobility and would cont to benefit from skilled PT to work on his mobility and safety with use of shoes when standing. Goals Bed Mobility Goal Standby Assistance Transfer Goal Independent Gait Goal Independent Gait Distance 100 feet Frequency of Treatment Frequency Of Treatment Once a Day Treatment Plan Physical Therapy Treatment Plan Bed Mobility Training Transfer Training Gait Training Therapeutic Exercise Balance Retraining Post Op Education Discharge Planning Hot or Cold Pack Neuromuscular Re-ed Coordination Retraining Manual Therapy Other Recommendations and Next Treatment bed mobility, functional Focus strengthening/balance, might need CG training Recommendations To Nursing Amount of Assist Needed 1 Person Assist Discharge Recommendations PT Discharge Recommendations Home with 04/11 Assist Equipment Needed for Home Before Pt may need FWW for home use. Discharge
--- NOTE | 2018-12-08 14:12 | PM.CHAP ---
Continued daily visits with patient & family. Prayer & encouragement.
--- NOTE | 2018-12-08 17:25 | PM.PNPO.1 ---
Subjective Date Patient Seen: 12/08/18 Time Patient Seen: 17:25 Interval history: Patient's pain controlled. Had flatus and bm earlier today. A little hungry Exam Vital Signs (past 8 hours): - 12/08/18 12:00 12/08/18 15:38 Temperature 97.7 F 99.6 F Pulse Rate 78 79 Respiratory Rate 16 15 Blood Pressure 144/77 H 157/76 H Pulse Oximetry 97 94 Fraction of Inspired Oxygen 21 Oxygen Delivery Method Room Air Oxygen Flow Rate 0 Narrative Exam Narrative: lungs clear. heart RRR no murmur or bob. Abd mildly distended. Dressing dry and intact. Objective Labs Result Diagrams: 12/08/18 05:30 12/08/18 05:30 Labs: Laboratory Results - last 24 hr 12/08/18 12/08/18 05:30 05:30 WBC 8.7 RBC 3.40 L Hgb 11.1 L Hct 32.7 L MCV 96.2 MCH 32.5 MCHC 33.8 RDW 13.2 Plt Count 192 Neut % (Auto) 83.8 H Lymph % (Auto) 4.8 L [place] % (Auto) 7.6 Eos % (Auto) 3.4 Baso % (Auto) 0.4 Neut # (Auto) 7300 H Lymph # (Auto) 400 L [place] # (Auto) 700 Eos # (Auto) 300 Baso # (Auto) 0 Sodium 137 Potassium 3.7 Chloride 106 Carbon Dioxide 27 BUN 15 Creatinine 0.70 Estimated GFR > 60.0 BUN/Creatinine Ratio 21.4 Glucose 131 H Calcium 8.0 L Magnesium 1.9 Assessment & Plan Post-op Postoperative Procedures Operation Date: 12/06/18 10:00 Actual Procedures Side Surgeon p Exploratory Laparotomy, lysis of adhesions for complete mechanical small bowel obstruction Sacha Regalado MD Postoperative status: doing well Postoperative plan narrative: encourage po. supportive care. PT.
--- NOTE | 2018-12-08 19:57 | PC.NURSE ---
Pt is having uneventful evening. Denies discomfort Lungs clear, SpO2 94% RA IV D5 1/2NS w/20meq KCL infusing at 84cc/hr into LFA w/o incidence. Call light w/in reach, bed alarm on for pt safety. Continue w/plan of care.
[2018-12-08] MEDS: clonazePAM 0.5 MG TABLET PO (20:07)
[2018-12-09] VITALS (7 sets, daily range): BP systolic 126–155; BP diastolic 62–82; PULSE 76–87; RESP 15–20; TEMP 36.8–37.5; O2SAT 94–97
--- NOTE | 2018-12-09 00:55 | PC.NURSE ---
2349 Patient is alert and oriented. Due to Parkinson's has stiffness in face/extremities and noted left UE tremor. Breath sounds diminished but CTA with RA sat of 95%. HRR with BP of 152/69. Denies nausea. BT hypoactive but states he is passing flatus and had BM on 12/08. Dressing to abdomen is CDI. Abdomen is soft, tender and mildly distended. Unable to urinate on previous shift and was straight cathed prior to shift change. Needs assist to reposition q2h. Denies pain. Wearing bilateral SCD's. Fall risk score is high and bed alarm is activated. HOB elevated at 30 degrees per MD order.
[2018-12-09] MEDS: METOCLOPRAMIDE 10 MG/2 ML INJ IV ×3 (06:02→21:29)
[2018-12-09 06:23] LABS: Add Manual Diff / Slide Review NO; Basophils Absolute Auto 0 /uL (0-100); Basophils Percent Auto 0.3 % (0-2); Eosinophils Absolute Auto 400 /uL (0-450); Eosinophils Percent Auto 5.6 % (2-4); Hematocrit 33.1 % (41-53); Hemoglobin 11.3 g/dL (13.5-17.5); Lymphocytes Absolute Auto 500 /uL (1100-4500); Lymphocytes Percent Auto 6.4 % (25-40); Mean Corpuscular HGB Conc 34.2 % (30-36); Mean Corpuscular Hemoglobin 32.6 PG (26-34); Mean Corpuscular Volume 95.2 fL (80-100); Monocytes Absolute Auto 700 /uL (0-900); Monocytes Percent Auto 9.6 % (3-14); Neutrophils Absolute Auto 5600 /uL (1500-7000); Neutrophils Percent Auto 78.1 % (50-75); Platelet Count 207 X10^3/uL (150-400); Red Blood Cell Count 3.47 X10^6/uL (4.5-5.9); Red Cell Distribution Width 13.3 % (11.6-14.8); White Blood Cell Count 7.2 X10^3/uL (4.5-11.0)
[2018-12-09 06:36] LABS: BUN Creatinine Ratio 12.9 (6-22); Blood Urea Nitrogen 9 mg/dL (9-20); Calcium 8.2 mg/dL (8.4-10.2); Carbon Dioxide 25 mmol/L (22-32); Chloride 106 mmol/L (98-107); Estimated Glomerular Filt Rate > 60.0 mL/min (>60); Glucose 115 mg/dL (80-110); HEMOLYSIS < 15 (0-50); Magnesium 1.9 mg/dL (1.6-2.3); Potassium 3.8 mmol/L (3.4-5.1); Sodium 137 mmol/L (137-145)
[2018-12-09] MEDS: DEXTROSE 5%-0.45NS W/KCL 20MEQ 1,000 ML 84 MEQ IV (07:07)
[2018-12-09] MEDS: CARBIDOPA-LEVODOPA 25/100 TABLET 1 EACH PO ×4 (08:09→21:29)
[2018-12-09] MEDS: ASCORBIC ACID 500 MG TABLET PO (08:10)
[2018-12-09] MEDS: POLYETHYLENE GLYCOL 3350 17 GM POWD.PACK PO (08:10)
[2018-12-09] MEDS: GABAPENTIN 300 MG CAPSULE PO ×2 (08:10→21:29)
[2018-12-09] MEDS: DOCUSATE 100 MG CAPSULE PO ×2 (08:10→21:29)
[2018-12-09] MEDS: HEPARIN 5,000 UNIT/ML VIAL 5000 UNIT SUBCUT ×2 (08:10→21:29)
--- NOTE | 2018-12-09 09:30 | PT.IPTN ---
Current Diagnoses Unspecified intestinal obstruction, unspecified as to partial versus complete obstruction (12/05/18) Surgery Performed Operation Date: 12/06/18 10:00 Actual Procedures p Exploratory Laparotomy, lysis of adhesions for complete mechanical small bowel obstruction - Sacha Regalado MD Physical Therapy Treatment Note M2 PT-IP Current Condition Start: 12/06/18 14:36 Freq: NEEDED Status: Active Protocol: Document 12/06/18 16:43 AW (Rec: 12/06/18 17:10 AW [email or web address]) Physical Therapy Current Condition Current Condition Evaluation Date 12/06/18 Treatment Diagnosis SBO, pancreatic mass, s/p exp lap, impaired transfers, gait Precautions Abdominal Surgery Precautions Log Roll,Lifting Restrictions, Gait Belt above Incisional Area Weight Bearing Status Weight Bearing Status Weight Bear as Tolerated M3 PT-IP Subjective Start: 12/06/18 14:36 Freq: NEEDED Status: Active Protocol: Document 12/09/18 09:30 [facility] (Rec: 12/09/18 11:36 [facility] [id number]) Subjective Physical Therapy Visit Type Type Treatment Note Visit Start Time 09:16 Visit Stop Time 09:32 Total Visit Minutes 16 Number of STAMPING MILL TENDER Visits 1 Physical Therapy Visit Comments Patient Comments Pt states he want's to walk. M4 PT-IP Mobility and Gait Start: 12/06/18 14:36 Freq: NEEDED Status: Active Protocol: Document 12/09/18 09:30 [facility] (Rec: 12/09/18 11:36 [facility] [id number]) PT-Bed Mobility Assessment Rolling Type of Rolling Log Rolling,Roll to Right Level of Assist Minimal Assistance,1 Person Assistance Supine to Sit Supine to Sit Minimal Assistance,1 Person Assistance Scooting Scooting to Edge of Bed Standby Assistance PT-Transfer Assessment Sit to and From Stand Sit to and from Stand Contact Guard Assistance Equipment Transfer Assistive Device Gait Belt,Front Wheeled Walker Transfers Transfer Destination Chair Gait Assessment Gait Gait Assistance Required: Contact Guard Assist,Minimum Assistance Distance (Feet) 250 Assistive Devices Assistive Device None,Gait Belt,Front Wheeled Walker Gait Deviations General Gait Pattern Decreased Stride Length, Decreased Feet Clearance, Flexed Trunk Factors Limiting Gait Function Factors Limiting Gait Function Decreased Strength,Poor Balance Comments Gait Comments Pt amb about 200 ft with FWW, then 50 feet without AD. M5 PT-IP Objective Assessments Start: 12/06/18 14:36 Freq: NEEDED Status: Active Protocol: Document 12/08/18 10:55 [facility] (Rec: 12/08/18 11:57 [facility] [id number]) Orientation Orientation/Cognition Level of Alertness Alert M6 PT-IP Treatment Start: 12/06/18 14:36 Freq: NEEDED Status: Active Protocol: Document 12/08/18 10:55 [facility] (Rec: 12/08/18 11:57 [facility] [id number]) Physical Therapy Treatment Education Education Provided Safety Other Treatments Other Treatment Performed NBOS standing, attempted tandem but pt unable M7 PT-IP Assessment and Plan Start: 12/06/18 14:36 Freq: NEEDED Status: Active Protocol: Document 12/09/18 09:30 [facility] (Rec: 12/09/18 11:36 [facility] [id number]) PT Summary Assessment and Plan Summary Assessment Summary Pt had improved gait pattern and stability with ambulation with FWW. He had decrease step length and pace with gait without AD. He had no LOB with ambulation. Frequency of Treatment Frequency Of Treatment Once a Day Recommendations To Nursing Amount of Assist Needed 1 Person Assist Discharge Recommendations PT Discharge Recommendations Home with Assistance
[2018-12-09] MEDS: BISACODYL 10 MG SUPP PR ×2 (11:35→21:29)
--- NOTE | 2018-12-09 13:37 | P.PN_ITS ---
Subjective Subjective Date Patient Seen: 12/09/18 Time Patient Seen: 13:20 Interval history: Patient post exploration for a small-bowel obstruction. He is feeling better today. Tolerated a general diet. Family is in the room today. Exam Vital Signs (past 8 hours): - 12/09/18 08:15 12/09/18 08:22 12/09/18 12:41 Temperature 98.6 F 98.8 F Pulse Rate 77 79 Respiratory Rate 15 16 Blood Pressure 144/75 H 137/69 Pulse Oximetry 96 96 97 Fraction of Inspired Oxygen 21 Oxygen Delivery Method Room Air Oxygen Flow Rate 0 Narrative Exam Narrative: Lungs clear. Good effort. Heart regular rate and rhythm without murmur gallop. Abdomen is flat soft. Midline is intact. No cellulitis. Some bruising about the wound which is not unusual. Staple line intact. Objective Labs Result Diagrams: 12/09/18 05:57 12/09/18 05:57 Labs: Laboratory Results - last 24 hr 12/09/18 12/09/18 05:57 05:57 WBC 7.2 RBC 3.47 L Hgb 11.3 L Hct 33.1 L MCV 95.2 MCH 32.6 MCHC 34.2 RDW 13.3 Plt Count 207 Neut % (Auto) 78.1 H Lymph % (Auto) 6.4 L [place] % (Auto) 9.6 Eos % (Auto) 5.6 H Baso % (Auto) 0.3 Neut # (Auto) 5600 Lymph # (Auto) 500 L [place] # (Auto) 700 Eos # (Auto) 400 Baso # (Auto) 0 Sodium 137 Potassium 3.8 Chloride 106 Carbon Dioxide 25 BUN 9 Creatinine 0.70 Estimated GFR > 60.0 BUN/Creatinine Ratio 12.9 Glucose 115 H Calcium 8.2 L Magnesium 1.9 Assessment & Plan Post-op Postoperative Procedures: Procedures Operation Date: 12/06/18 10:00 Actual Procedures Side Surgeon p Exploratory Laparotomy, lysis of adhesions for complete mechanical small bowel obstruction Sacha Regalado MD Postoperative status: doing well Postoperative plan narrative: Probable discharge early tomorrow morning. Physical therapy to see. Had a large bowel movement and is having some gas pain so looks like things are moving again. May shower today per
--- NOTE | 2018-12-09 14:30 | PC.NURSE ---
Day Shift- Abd dressing removed by Dr. Mccain around 1400 and left INSTITUTIONAL RESEARCH COORDINATOR, donald intact with dried blood around incision, no S/S of infection and no active drainage. Pain 0-1/10 throughout shift, no prn's needed. IVF stopped at 1425 per order. Ambulated in halls X2 using FWW and gait belt with 1 PA, tolerated fair, pt does tend to lean over walker and walk briskly. Spend most of the shift in chair, back to bed X1 in order to give Scheduled Bisacodyl supp at 1135. Pt had small to moderate sized loose, mushy BM. High fall risk precautions in place and bed/chair alarm on.
--- NOTE | 2018-12-09 17:25 | P.PN_ITS ---
Subjective Subjective Date Patient Seen: 12/09/18 Time Patient Seen: 13:45 Interval history: Mr. Sena is a 78-year-old male with past medical history Parkinson's disease and chronic constipation was admitted for small-bowel obstruction. He is now postoperative day 2 Status post exploratory laparotomy and lysis of adhesions. No bowel needed to be resected, and the patient is doing well after surgery. He feels much improved after operative interventions, and he is tolerating a regular diet. He continued to pass hard stools yesterday, and had no bowel movement as of this morning. He denies any fevers or chills, and only complains minimal abdominal pain around his incision. He denies any nausea or vomiting with his diet. He otherwise feels much improved. He has a follow up scheduled with Oncology for December 15 at 3:00 p.m.. Exam Vital Signs (past 8 hours): - 12/09/18 12:41 12/09/18 16:00 Temperature 98.8 F 98.3 F Pulse Rate 79 87 Respiratory Rate 16 16 Blood Pressure 137/69 155/76 H Pulse Oximetry 97 94 Fraction of Inspired Oxygen 21 Oxygen Delivery Method Room Air Oxygen Flow Rate 0 Narrative Exam Narrative: GENERAL APPEARANCE: Cachectic appearing male, but appears acutely improved from prior exams. SKIN: Inspection of the skin reveals no rashes, ulcerations or petechiae. HEENT: The sclerae were anicteric and conjunctivae were pink and moist. Extraocular movements were intact and pupils were equal, round with normal accommodation. External inspection of the ears and nose showed no scars, lesions, or masses. Lips, teeth, and gums showed normal mucosa. The oral mucosa, hard and soft palate, tongue and posterior pharynx were unremarkable. NECK: Supple and symmetric. There was no thyroid enlargement, and no tenderness, or masses were felt. CHEST: Normal AP diameter and normal contour without any kyphoscoliosis. LUNGS: Auscultation of the lungs revealed no wheezes, rhonchi, or rales. CARDIOVASCULAR: There was a regular rate and rhythm without any murmurs, gallops, rubs. Peripheral pulses were 2+ and symmetric. ABDOMEN: Soft, appropriately tender near incision site. Dressing is clear and dry. MUSCULOSKELETAL: There was no tenderness or effusions noted. Muscle strength and tone were normal. EXTREMITIES: No cyanosis, clubbing or edema. NEUROLOGIC: Alert and oriented x 3. Reserved. Slow purposeful movements and occasional tremor noted. Strength is +5/5 in the Upper Extremities and Lower Extremities Bilaterally. Sensation to touch was normal. Objective Labs Result Diagrams: 12/09/18 05:57 12/09/18 05:57 Labs: Laboratory Results - last 24 hr 12/09/18 12/09/18 05:57 05:57 WBC 7.2 RBC 3.47 L Hgb 11.3 L Hct 33.1 L MCV 95.2 MCH 32.6 MCHC 34.2 RDW 13.3 Plt Count 207 Neut % (Auto) 78.1 H Lymph % (Auto) 6.4 L [place] % (Auto) 9.6 Eos % (Auto) 5.6 H Baso % (Auto) 0.3 Neut # (Auto) 5600 Lymph # (Auto) 500 L [place] # (Auto) 700 Eos # (Auto) 400 Baso # (Auto) 0 Sodium 137 Potassium 3.8 Chloride 106 Carbon Dioxide 25 BUN 9 Creatinine 0.70 Estimated GFR > 60.0 BUN/Creatinine Ratio 12.9 Glucose 115 H Calcium 8.2 L Magnesium 1.9 Assessment & Plan Assessment & Plan narrative: Christian Sena is a 78-year-old male with past medical history of well-controlled Parkinson's and chronic constipation, admitted to Medicine for small-bowel obstruction and further workup of pancreatic mass, now s/p exploratory laparotomy with lysis of adhesions, and feeling much improved. 1. Acute small-bowel obstruction, present on admission -POD #3 s/p ex-lap with lysis of adhesions, now improved. Tolerating regular diet as of this afternoon. -appreciate surgical assistance with management -monitor nutritional status -continue to monitor bowel movements, continue as needed suppositories or enemas as he still has a large amount of stool burden noted in his colon. -Zofran or reglan as needed for nausea -starting miralax daily - start senna tonight. 2. 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 He appears cachectic and has weight loss over the past few months, and given the appearance on imaging this is most likely malignant. He will need an MRI with pancreatic protocol, as well as full imaging of his chest and head for further workup. The surgeon noted during the operation that there were no palpable lymph nodes, and no visible hepatic metastases. -obtain MRI once stable from bowel obstruction, better to be done as outpatient. -CA 19-9 pending -discussed with oncology office today, appropriate for outpatient follow up. Scheduled for 12/15/2018 at 3pm. 3.Chronic Parkinson's disease, stable. -patient is quite functional and ambulates daily and reports no falls. He manifests masked face ease and tremors but has no evidence of impaired swa llowing. -continue patient's home medication of carbidopa levodopa 4 times daily and rasagiline 1 mg daily. 4. Moderate chronic protein calorie malnutrition - secondary to progression of parkinsons, new SBO and pancreatic mass. He has losses in subcutaneous fat, >15 lb weight loss, appears cachectic in appearance and has current inability to maintain weight. Dispo: likely discharge tomorrow if bowel movements improve.
[2018-12-09] MEDS: SODIUM CHLORIDE 0.9% FLUSH 10 ML IV (21:29)
[2018-12-09] MEDS: SENNOSIDES 8.6 MG TABLET PO (21:29)
[2018-12-09] MEDS: clonazePAM 0.5 MG TABLET PO (21:29)
--- NOTE | 2018-12-09 23:50 | PC.NURSE ---
Addendum entered by Pham Moralez R.N. 12/10/18 03:29: Noted rash now extending further down posterior legs and inner thighs as well as spots on back and abdomen. Kiran MORSE, informed and came to evaluate; will be ordering steroids. Original Note: Patient is alert and oriented although very soft spoken. Due to Parkinsons has some rigidity in extremities and face along with left UE tremor noted. Breath sounds diminished but CTA with RA sat of 95%. HRR. Denies nausea. BT hypoactive but is passing flatus and has been stooling. Denies dysuria, frequency or urgency since catheter removed and now is voiding without retention. Needing assist to reposition q2h. 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 Gauze dressing on left abdomen is CDI. Noted to have solid, slightly raised rash on posterior left thigh/buttock and scattered rash on bilateral posterior thighs; denies itching/irritation. Wearing bilateral SCD's. Denies pain. Fall risk score is high and bed alarm is activated. HOB elevated to 30 degrees.
--- NOTE | 2018-12-10 03:35 | PM.EVENT ---
Event Note Date Patient Seen: 12/10/18 Time Patient Seen: 03:35 Event Note: Called to patient's bedside to evaluate extending rash. The patient had developed a rash was reported on the evening shift that is raised red and well demarcated. The patient denies pain or itching. Now the rash is extending down the posterior thighs and is evident on the abdominal wall. The rash appears in patches and straight lines consistent with a contact dermatitis. The distribution of the rash is not amenable to topical treatment therefore will start prednisone 20 mg p.o.. Have also asked for hypoallergenic linen even though the patient did not present with rash on prior overnight hospitalization.
[2018-12-10] MEDS: predniSONE 20 MG TABLET PO (03:38)
[2018-12-10 03:44] VITALS: BP 148/76; PULSE 84; RESP 20; TEMP 37.5; O2SAT 96
[2018-12-10] MEDS: METOCLOPRAMIDE 10 MG/2 ML INJ IV ×2 (06:21→13:51)
[2018-12-10] MEDS: SODIUM CHLORIDE 0.9% FLUSH 10 ML IV ×2 (06:22→08:15)
[2018-12-10 08:00] VITALS: BP 146/76; PULSE 85; RESP 16; TEMP 37.1; O2SAT 95
[2018-12-10] MEDS: POLYETHYLENE GLYCOL 3350 17 GM POWD.PACK PO (08:14)
[2018-12-10] MEDS: GABAPENTIN 300 MG CAPSULE PO (08:14)
[2018-12-10] MEDS: HEPARIN 5,000 UNIT/ML VIAL 5000 UNIT SUBCUT (08:15)
[2018-12-10] MEDS: ASCORBIC ACID 500 MG TABLET PO (08:16)
[2018-12-10] MEDS: CARBIDOPA-LEVODOPA 25/100 TABLET 1 EACH PO ×2 (08:16→12:23)
[2018-12-10] MEDS: DOCUSATE 100 MG CAPSULE PO (08:16)
[2018-12-10 08:20] VITALS: O2SAT 96
--- NOTE | 2018-12-10 10:00 | P.PN_ITS ---
Subjective Subjective Date Patient Seen: 12/10/18 Interval history: Christian Fisher is an 78-year-old male with a past medical history significant for Parkinson's disease and chronic constipation who presented with abdominal pain, nausea and vomiting and found to have SBO now status post lysis of adhesions. The patient is resting in bedside chair comfortably. He reports very little pain. The patient has a well demarcated, linear and macular papular rash on trunk and posterior legs that developed yesterday afternoon that is asymptomatic without pruritus or pain. Discussed case with [facility] dermatology Dr. Oliveira who reviewed pictures and related that this is likely a contact versus drug reaction and recommended to start a 12 day steroid taper and apply triamcinolone cream to rash daily. Discontinued gabapentin which is the only new medication other than intraoperative antibiotics with bacitracin and ceftriaxone. 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 The patient has residual hoarseness/laryngitis from recent intubation during laparotomy for lysis of adhesions that is slowly improving. The patient has no complaints and denies headache, cough, shortness of breath, chest pain, abdominal pain, nausea, vomiting, fever, chills, dysuria, diarrhea or constipation. He is voiding and eliminating without difficulty. He is up ambulating without assistance. Exam Vital Signs (past 8 hours): - 12/10/18 03:44 12/10/18 08:20 Temperature 99.5 F Pulse Rate 84 Respiratory Rate 20 Blood Pressure 148/76 H Pulse Oximetry 96 96 Fraction of Inspired Oxygen 21 Oxygen Delivery Method Room Air Oxygen Flow Rate 0 Narrative Exam Narrative: General: Elderly thin gentleman sitting in bedside chair and in no acute distress, appears older than stated age, well-developed, well-nourished, appropriately interactive. HEENT: Normocephalic, atraumatic. External ears without defect. Pupils equal, round, and reactive to light. Anicteric sclerae, moist conjunctivae, and no lid lag. Oropharynx free of erythema and cobble stoning with moist mucosa. Mild laryngitis from recent operation. Neck: Supple with full range of motion. No jugular venous distension. No lymphadenopathy or thyromegaly. Cardiovascular: Regular rate and rhythm without murmurs, rubs, or gallops appreciated Pulmonary: Clear to auscultation bilaterally without crackles, wheezes, or rhonchi. Normal respiratory effort with no use of accessory muscles. Abdomen: Soft, bowel sounds present, mild tenderness around incision which is C/D/I with mild erythema, nondistended. No hepatosplenomegaly or masses appreciated. Extremities: No clubbing, cyanosis, or edema. Skin: Scattered well-demarcated erythematous maculopapular rash with linear lesions spread throughout trunk and upper thighs/perineum, blanchable, asymptomatic without pruritus or pain. Neurological: Cranial nerves grossly intact. Mild tremor. Masked facies. Psychiatric: Normal mood and flat affect. Alert and oriented to person, place, and time. Objective Labs Result Diagrams: 12/09/18 05:57 12/09/18 05:57 Assessment & Plan Assessment & Plan narrative: Christian Fisher is an 78-year-old male with a past medical history significant for Parkinson's disease and chronic constipation who presented with abdominal pain, nausea and vomiting and found to have SBO now status post lysis of adhesions. 1. Acute small-bowel obstruction, status post exploratory laparotomy with lysis of adhesions, present on admission. Resolved. -Patient presented with nausea, vomiting, and abdominal pain and found to have SBO. -CT abdomen and pelvis with contrast demonstrated small bowel obstruction with transition point within the left pelvis, related to marked thickening of the wall of 2 small bowel loops within this region, suggesting prominent focal enteritis. -General surgery consulted and preformed exploratory laparotomy with lysis of adhesions. POD #4.Tolerating regular diet and moving bowels. Continue post- operative, bowel regimen and pain management per general surgery. 2. Acute non-specific rash, not present on admission. Active. -Patient developed scattered well-demarcated erythematous maculopapular rash with linear lesions spread throughout trunk and upper thighs/perineum, blanchable, asymptomatic without pruritus or pain. Of note, patient showered yesterday afternoon for first time and rash developed not long after. -Discussed case with [facility] dermatology Dr. Oliveira who reviewed pictures and related that this is likely a contact versus drug reaction and recommended to start a 12 day steroid taper (60 mg x 3 days, 40 mg x 3 days, 20 mg x 3 days, and 10 mg x 3 days then stop) and apply triamcinolone cream to rash daily. Discontinued gabapentin which is the only new medication other than intraoperative antibiotics with bacitracin and ceftriaxone. 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 3. Pancreatic mass, suspected malignant neoplasm, present on admission. Stable. -Patient appears cachectic and has had weight loss over the past few months, and given the appearance on imaging this is most likely malignant. He will need an MRI with pancreatic protocol, as well as full imaging of his chest and head for further workup. The surgeon noted during the operation that there were no palpable lymph nodes and no visible hepatic metastases. -CT abdomen and pelvis with contrast demonstrated apparent mass involving the body of the pancreas. -Ordered CA 19-9, pending. -Scheduled oncology evaluation for 12/15/2018 at 0300. 4. Moderate chronic protein calorie malnutrition, present on admission. Stable. -BMI 21. -Secondary to progression of parkinsons, new SBO and pancreatic mass. He has losses in subcutaneous fat, >15 lb weight loss, appears cachectic in appearance and has current inability to maintain weight. -Consulted business support liaison for evaluation and treatment. We appreciate her recommendations. 5. Parkinson's disease, chronic, present on admission. Stable. -Patient is quite functional with bike riding and daily walking without falls. -Continue home medication of carbidopa/levodopa 4 times daily, clonazepam 0.5 mg daily at bedtime, and rasagiline 1 mg daily. Disposition: Patient likely to discharge today per general surgery.
[2018-12-10] MEDS: BISACODYL 10 MG SUPP PR (10:25)
--- NOTE | 2018-12-10 10:38 | PC.NURSE ---
Day Shift- Pt A&OXX4, approprate, high fall risk precautions in place, pt does not try to get OOB/chair by himself. Spoke with Dr. horvath at 1035 regarding increase in rash like irritation to skin at left posterior upper leg, left groin, upper abd and right posterior lower buttock. Pt denies discomfort, itching to areas. 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 OOB/chair transfers SBA using walker and gait belt, pt slow and steady on feet. Denies any abd pain or other discomfort, denies nausea, tolerating general diet well. AM scheduled suppository given, soft BM palpated with digital rectal insertion of suppository. Pt is hoping to go home today, no other voiced concerns.
--- NOTE | 2018-12-10 11:43 | CM.DPC ---
Addendum entered by Anjali Julien LPN 12/10/18 14:04: Met with pt and his Roxana. Roxana noted that Dr. Lake has discussed pt's case in detail, had discussed the skin rash with a nurse unit manager and that she now felt more at ease with a d/c to home setting. Asked pt his thoughts about his readiness for d/c today. He noted that he does feel better each day and that it is very difficult for him being in the hospital. The staff will not let me get up without assist and often they do not have time to help me. I don't really want to spend another night here. Went over HH option but pt now goes to OUTPT PT at [facility] in [place] and would like to continue this. Did provide [facility] Senior Resource booklet and Roxana expressed her appreciation of this. 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 RADHA #2 presented again, explained specifics of same, offered assist with appeal if need arose. At pt's request Roxana signed..copy given to [facility] for processing. Pt is clear in his intent to d/c home. Dr. Lake is finalizing the d/c orders. Roxana is supportive of the d/c today. Original Note: DCP:continued: case received and EMR for last few days is reviewed. Hand-off from DCP colleague indicates pt approaching readiness for d/c. Discussed in Team Rounds. PT has been following pt and WORKERS COMPENSATION CONSULTANT Deb says recommendation if for home setting with spouse assist. OT is not ordered. Dr. Lake and consulting surgeon Dr. Mccain are seeing pt today and a d/c order is noted in the EMR although no other d/c orders are in place. Was updated now by [facility] Linda that she had presented RADHA #2 to pt and . noted that she was not going to sign the document as she and her daughter did not feel that pt was ready to go home today and she had not yet seen a physician today. Went to room to meet with pt but saw Dr. Lake on the way and updated her re above. She stated that she would go see them now. Agreed to put off visit until Dr. Lake completed her conversation with them.
[2018-12-10 13:00] VITALS: BP 129/73; PULSE 87; RESP 16; TEMP 37; O2SAT 95
--- NOTE | 2018-12-10 13:01 | PT.IPTN ---
Current Diagnoses Unspecified intestinal obstruction, unspecified as to partial versus complete obstruction (12/05/18) Surgery Performed Operation Date: 12/06/18 10:00 Actual Procedures p Exploratory Laparotomy, lysis of adhesions for complete mechanical small bowel obstruction - Sacha Regalado MD Physical Therapy Treatment Note M2 PT-IP Current Condition Start: 12/06/18 14:36 Freq: NEEDED Status: Active Protocol: Document 12/06/18 16:43 AW (Rec: 12/06/18 17:10 AW [id number]) Physical Therapy Current Condition Current Condition Evaluation Date 12/06/18 Treatment Diagnosis SBO, pancreatic mass, s/p exp lap, impaired transfers, gait Precautions Abdominal Surgery Precautions Log Roll,Lifting Restrictions, Gait Belt above Incisional Area Weight Bearing Status Weight Bearing Status Weight Bear as Tolerated M3 PT-IP Subjective Start: 12/06/18 14:36 Freq: NEEDED Status: Active Protocol: Document 12/10/18 12:46 AW (Rec: 12/10/18 13:01 AW [id number]) Subjective Physical Therapy Visit Type Type Treatment Note Visit Start Time 11:30 Visit Stop Time 11:57 Total Visit Minutes 27 Number of ENGLISH INSTRUCTOR Visits 0 Physical Therapy Visit Comments Patient Comments Pt is sleepy but willing to work with PT. Has new rash which nursing and medicine are aware of. M4 PT-IP Mobility and Gait Start: 12/06/18 14:36 Freq: NEEDED Status: Active Protocol: Document 12/10/18 12:46 AW (Rec: 12/10/18 13:01 AW [id number]) PT-Bed Mobility Assessment Rolling Type of Rolling Log Rolling,Roll to Right Level of Assist Minimal Assistance,1 Person Assistance Supine to Sit Supine to Sit Minimal Assistance,1 Person Assistance Scooting Scooting to Edge of Bed Standby Assistance PT-Transfer Assessment Sit to and From Stand Sit to and from Stand Contact Guard Assistance Equipment Transfer Assistive Device Gait Belt,Front Wheeled Walker Transfers Transfer Destination Chair Comments Mobility Comments Pt stood from EOB with CGA. With shoes donned, pt performed 5 Time Sit to Stand from recliner chair in 25 seconds. Gait Assessment Gait Gait Assistance Required: Standby Assistance,Contact Guard Assist Distance (Feet) 300 Assistive Devices Assistive Device None,Gait Belt,Front Wheeled Walker Gait Deviations General Gait Pattern Decreased Stride Length, Decreased Feet Clearance, Flexed Trunk Factors Limiting Gait Function Factors Limiting Gait Function Decreased Strength,Poor Balance Comments Gait Comments Pt amb ~200 feet with FWW and SBA, followed by ~100 feet with no AD, requiring CGA with decreased foot clearance and stride length bilaterally. M5 PT-IP Objective Assessments Start: 12/06/18 14:36 Freq: NEEDED Status: Active Protocol: Document 12/08/18 10:55 LR (Rec: 12/08/18 11:57 [facility] [id number]) Orientation Orientation/Cognition Level of Alertness Alert M6 PT-IP Treatment Start: 12/06/18 14:36 Freq: NEEDED Status: Active Protocol: Document 12/08/18 10:55 [facility] (Rec: 12/08/18 11:57 [facility] [id number]) Physical Therapy Treatment Education Education Provided Safety Other Treatments Other Treatment Performed NBOS standing, attempted tandem but pt unable M7 PT-IP Assessment and Plan Start: 12/06/18 14:36 Freq: NEEDED Status: Active Protocol: Document 12/10/18 12:46 AW (Rec: 12/10/18 13:01 AW [id number]) PT Summary Assessment and Plan Summary Progress Towards Goals Progressing Toward Goals Assessment Summary Pt seen today ~4 hours after last dose of levodopa. He is advancing with gait but continues to require increased support (CGA) when ambulating with no AD due to decreased step length/poor foot clearance. Score of 25 seconds and heavy use of UE's on 5 Time Sit to Stand indicate incresaed risk of falls. Pt left in bedside chair with spouse visiting and chair alarm on. Frequency of Treatment Frequency Of Treatment Once a Day Recommendations To Nursing Amount of Assist Needed Standby Assistance Discharge Recommendations PT Discharge Recommendations Home with Assistance Equipment Needed for Home Before Possible need for FWW for home Discharge use
--- NOTE | 2018-12-10 13:17 | PM.DS.1 ---
History of Present Illness History of Present Illness Date Patient Seen: 12/10/18 Time Patient Seen: 10:17 Chief complaint: Bowel Blockage Narrative: The patient is a gentleman who was admitted with signs symptoms of a bowel obstruction and a CT consistent with same. He was taken the operating room. Discharge Providers Provider Date of admission: 12/05/18 14:07 Discharge Date: 12/10/18 Primary care physician: Joel Mata MD Consults: 12/05/18 13:56 Consult to General Surgery Stat Comment: Consulting Provider: Sacha Regalado Reason for consultation: bowel obstruction Has provider been notified: Yes 12/05/18 16:14 Consult to Dietitian, Adult Routine Comment: Reason For Exam: Weight loss 12/06/18 13:07 Consult to Discharge Planning Routine Comment: Consult to Physical Therapy Evaluate & Treat Comment: Physician Instructions: Evaluate and Treat 12/06/18 13:07 Consult to Respiratory Therapy Evaluate & Treat Comment: Physician Instructions: Evaluate and treat 12/08/18 17:29 Consult to Physical Therapy Evaluate & Treat Comment: post laparotomy for bowel obstruction. Has julisa Physician Instructions: Evaluate and Treat 12/09/18 08:58 Consult to Discharge Planning Routine Comment: probable discharge late today or tomorrow Discharge provider: Cliff Mccain MD Summary Hospital Course Discharge Diagnosis: One adhesive small bowel obstruction acute Two chronic Parkinson's disease Three chronic constipation Four acute blood loss anemia secondary to operation Hospital Course: Patient underwent an open exploration and adhesiolysis. His bowel function was very slow to return. Ultimately it did so. He was discharged on a general diet to follow up in the office. Status at Discharge Cognitive/behavioral status at discharge: oriented Functional status at discharge: independent ambulation Overall status at discharge: patient is progressing back to baseline Exam Vital Signs (past 8 hours): - 12/10/18 08:00 12/10/18 08:20 Temperature 98.8 F Pulse Rate 85 Respiratory Rate 16 Blood Pressure 146/76 H Pulse Oximetry 95 96 Fraction of Inspired Oxygen 21 Oxygen Delivery Method Room Air Oxygen Flow Rate 0 Objective Labs Result Diagrams: 12/09/18 05:57 12/09/18 05:57 Discharge Plan Discharge Plan Patient Disposition: Home Discharge Med Rec/Prescriptions Prescriptions: New ibuprofen 600 mg tablet 600 mg PO Q6H PRN (Reason: pain) Qty: 20 RF: 0 Continued multivitamin 1 cap PO DAILY Qty: 0 RF: 0 clonazepam 0.5 mg tablet 0.5 mg PO QPM RF: 0 carbidopa-levodopa 25-100 mg tablet 1 tab PO QID RF: 0 rasagiline 1 mg tablet 1 mg PO DAILY RF: 0 ascorbic acid (vitamin C) [Vitamin C] 500 mg Tablet 500 mg PO DAILY RF: 0 docusate sodium [DOK] 100 mg Capsule 100 mg PO BID Qty: 60 RF: 0 polyethylene glycol 3350 17 gram Powder In Packet 17 gram PO DAILY Qty: 100 RF: 0 sennosides [senna] 8.6 mg tablet 8.6 mg PO DAILY PRN (Reason: constipation) Qty: 30 RF: 0 mineral oil enema 118 ml NV DAILY PRN (Reason: constipation) Qty: 6384 RF: 0 bisacodyl 10 mg suppository 10 mg NV DAILY PRN (Reason: constipation) Qty: 50 RF: 0 Follow up/Referrals: Joel Mata MD [Primary Care Provider] - Cliff Mccain MD [Physician] - 1 Week (Please call for an appointment to see me in about a week. 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 ) Provider Discharge Instructions Diet: Diet as Tolerated Activity: Do not drive until pain free off medication. You may walk. You may shower. No pool or tub however for at least 2 weeks. Skin/Wound/Dressing Care Dressing: Wound does not have to be covered unless the donald bother you. Visit Report/Discharge Packet Instructions: DI for Lysis of Adhesions, DI for Contact Dermatitis, How to Prevent Falls, DI for Postoperative Pain, [facility]: Wound Care Discharge Data Primary Care Provider: Joel Mata V
[2018-12-10] MEDS: predniSONE 20 MG TABLET 40 MG PO (13:50)
--- NOTE | 2018-12-10 16:19 | PC.NURSE ---
1600- Patient and give discharge instruction. IV heplock removed patient tolerated well. All questions answered and patient and verbalized understanding of discharge instruction. Medications obtained from pharmacy and given to . Patient stable at the time of discharge.
[2018-12-25 10:46] LABS: Cancer (Carbohydrate) Ag 19-9 12
== END 2018-12-10 16:24 | disposition home or self-care (01) | DRG 336 ==
LOC: ED 13:57 → AC 14:14
PROVIDERS: Nurse Practitioner Gerontology; Specialist; Surgery; Admitting Provider Internal Medicine; Emergency Provider Emergency Medicine; PCP Internal Medicine; Visit Provider Internal Medicine
PROC: 0DNB0ZZ Release Ileum, Open Approach (ICD-10-PCS; CPT 49000; principal; 2018-12-06 10:00)
DX: K56.52 Intestinal adhesions [bands] with complete obstruction (principal); E44.0 Moderate protein-calorie malnutrition; D62 Acute posthemorrhagic anemia; C25.9 Malignant neoplasm of pancreas, unspecified; G20 Parkinson's disease; Z68.21 Body mass index [BMI] 21.0-21.9, adult; L25.9 Unspecified contact dermatitis, unspecified cause; Z87.891 Personal history of nicotine dependence; K59.09 Other constipation
CPT/HCPCS: 36415; 36591; 44005; 74021; 74022; 74177; 80048; 80053; 82962; 83690; 83735; 85025; 86301; 94760; 94762; 96361; 96374; 96375; 97116; 97162; 97530; 99232; 99284; 99285; C9113; J0330; J0696; J1100; J1644; J2250; J2405; J2704; J2765; Q9967

== ENCOUNTER 2018-12-11 15:48 | Emergency (ER) | payer OTHER, MEDICARE, SELFPAY ==
[2018-12-05 16:02] VITALS: BMI 21.6
[2018-12-11 16:03] VITALS: BP 153/78; PULSE 80; RESP 16; TEMP 36.7; O2SAT 96; BMI 20.3
[2018-12-11 17:00] LABS: Add Manual Diff / Slide Review NO; Basophils Absolute Auto 0 /uL (0-100); Basophils Percent Auto 0.4 % (0-2); Eosinophils Absolute Auto 0 /uL (0-450); Eosinophils Percent Auto 0.3 % (2-4); Hematocrit 35.9 % (41-53); Lymphocytes Absolute Auto 300 /uL (1100-4500); Lymphocytes Percent Auto 4.4 % (25-40); Mean Corpuscular HGB Conc 33.5 % (30-36); Mean Corpuscular Volume 95.5 fL (80-100); Monocytes Absolute Auto 300 /uL (0-900); Monocytes Percent Auto 4.5 % (3-14); Neutrophils Absolute Auto 6000 /uL (1500-7000); Neutrophils Percent Auto 90.4 % (50-75); Platelet Count 373 X10^3/uL (150-400); Red Blood Cell Count 3.76 X10^6/uL (4.5-5.9); Red Cell Distribution Width 13.4 % (11.6-14.8); White Blood Cell Count 6.7 X10^3/uL (4.5-11.0)
[2018-12-11 17:06] LABS: INR 0.9 (0.9-1.3); Prothrombin Time 10.5 SECONDS (10.1-12.7)
[2018-12-11 17:09] LABS: PTT Partial Thromboplastin Tim 27 SECONDS (26.4-36.2)
[2018-12-11 17:11] LABS: Alanine Aminotransferase 46 IU/L (21-72); Albumin 3.4 g/dL (3.5-5.0); Alkaline Phosphatase 375 U/L (38-126); Aspartate Aminotransferase 148 IU/L (17-59); BUN Creatinine Ratio 24.3 (6-22); Bilirubin Total 0.5 mg/dL (0.2-1.3); Blood Urea Nitrogen 17 mg/dL (9-20); Calcium 8.9 mg/dL (8.4-10.2); Carbon Dioxide 28 mmol/L (22-32); Chloride 104 mmol/L (98-107); Estimated Glomerular Filt Rate > 60.0 mL/min (>60); Globulin 3.5 g/dL (1.7-4.1); Glucose 159 mg/dL (80-110); HEMOLYSIS < 15 (0-50); Potassium 4.4 mmol/L (3.4-5.1); Sodium 139 mmol/L (137-145); Total Protein 6.9 g/dL (6.3-8.2)
[2018-12-11 17:37] LABS: B Type Natriuretic Peptide 184 (<100)
--- NOTE | 2018-12-11 18:51 | DI.RAD.S_ITS ---
PROCEDURE: XR ABDOMEN MIN 2V INDICATIONS: constipation TECHNIQUE: 2 views of the abdomen were acquired. COMPARISON: [facility], CR, XR ABDOMEN 3V, 12/06/2018, 8:11. FINDINGS: Surgical changes and devices: None. Bowel: No pneumoperitoneum. Previous appearance of dilated bowel loops has improved. However, scattered dilated small bowel loops persist. There is persistent appearance of significant stool throughout the colon. Soft tissues: No masses; visualized solid organ contours appear normal in size. No suspicious abdominal calcifications. Bones: No suspicious bony abnormalities. IMPRESSION: Improved although persistent appearance of partial small bowel obstruction with significant stool and constipation. Dictated by: Ching Mace M.D. on 12/11/2018 at 19:35 Approved by: Ching Mace M.D. on 12/11/2018 at 19:36
--- NOTE | 2018-12-11 19:19 | ED.SKABFB ---
HPI - Skin/Abscess/Foreign Bdy General Chief complaint: Skin/Abscess/Foreign Body Stated complaint: concerns about rash related to Heprin Time Seen by Provider: 12/11/18 16:21 Source: patient and family Mode of arrival: ambulatory Limitations: no limitations History of Present Illness HPI narrative: Patient comes emergency department complaining of a rash that started yesterday. Patient has had a complicated course over the last week of small-bowel obstruction with subsequent surgery. Patient states he has actually been feeling quite well today, and his only other complaint is that his bowels have not moved today. Patient states he still passing some gas, and has no new abdominal pain. No nausea or vomiting. No fevers. Patient developed a distinct rash yesterday while still admitted. The rash was observed by Dr. Lake, the patient's admitting physician, who sent pictures to steel wheel engraver and steel wheel engraver determine that the rash looked most like an allergic reaction with vasculitis. Taper and was discharged home. Patient states he has felt quite good today, but when his called to make a follow-up dermatology appointment, the dermatology office that the patient should come in and be seen today. Patient's states that when the steel wheel engraver her the patient's history and saw the rash, she was very concerned about heparin-induced thrombocytopenia, and told the patient he should come straight to the emergency department. The patient states he has had a very good day today. He was able to drink coffee need some food although his appetite has still been diminished from normal. Patient has been generally weak since the days leading up to his surgery, and still feels tired. He denies any fevers or chills. No cough. No dysuria. No progression of the rash since yesterday. No hematuria. No blood in his stools. No melena. Related Data Home Medications Medication Instructions Recorded Confirmed multivitamin 1 cap PO DAILY #0 08/01/06 12/11/18 ascorbic acid (vitamin C) [Vitamin 500 mg PO DAILY 12/03/18 12/11/18 C] carbidopa-levodopa 1 tab PO QID 12/03/18 12/11/18 clonazepam 0.5 mg PO QPM 12/03/18 12/11/18 rasagiline 1 mg PO DAILY 12/03/18 12/11/18 prednisone See Rx Instructions .ROUTE .COMPLEX 12/11/18 12/11/18 Previous Rx's Medication Instructions Recorded bisacodyl 10 mg AR DAILY PRN #50 each 12/04/18 docusate sodium [DOK] 100 mg PO BID #60 cap 12/04/18 mineral oil 118 ml AR DAILY PRN #6384 ml 12/04/18 polyethylene glycol 3350 17 gram PO DAILY #100 each 12/04/18 sennosides [senna] 8.6 mg PO DAILY PRN #30 tab 12/04/18 ibuprofen 600 mg PO Q6H PRN #20 tab 12/10/18 triamcinolone acetonide 1 applictn TOP DAILY #30 gram 12/10/18 Allergies Allergy/AdvReac Type Severity Reaction Status Date / Time Tetracyclines Allergy Unknown Verified 12/11/18 16:06 heparin Allergy Rash Verified 12/11/18 16:06 Review of Systems Constitutional Constitutional: Denies chills, Denies fatigue, Denies fever(s), Denies frequent falls, Denies lethargy and Denies weakness Eyes Eyes: Denies change in vision, Denies eye discharge, Denies irritation and Denies loss of vision ENT Ears, Nose, Mouth, and Throat: Denies change in voice, Denies dizziness, Denies neck pain, Denies sore throat and Denies throat swelling Cardiovascular Cardiovascular: Denies chest pain, Denies irregular heart rhythm, Denies lightheadedness, Denies palpitations, Denies dyspnea, Denies dyspnea on exertion and Denies orthopnea Respiratory Respiratory: Denies cough, Denies dyspnea, Denies dyspnea on exertion and Denies wheezing Gastrointestinal Gastrointestinal: Denies abdominal pain, Denies change in bowel habits, Denies diarrhea, Denies nausea and Denies vomiting Comments: Decreased appetite/constipation Genitourinary Genitourinary: Denies hematuria, Denies flank pain, Denies urinary incontinence and Denies urinary urgency Musculoskeletal Musculoskeletal: Denies back pain, Denies muscle weakness, Denies neck pain, Denies numbness and Denies tingling Integumentary/Breasts Skin/Breast: Denies pruritus, Denies erythema, Denies rash and Denies wounds Comments: Rash Neurologic Neurologic: Denies behavioral changes, Denies confusion, Denies dizziness, Denies frequent falls, Denies loss of vision, Denies numbness, Denies tingling and Denies weakness Psychiatric Psychiatric: Denies anxiety, Denies behavioral changes, Denies confusion, Denies depression, Denies homicidal ideation and Denies suicidal ideation Endocrine Endocrine: Denies fatigue, Denies flushing and Denies palpitations Hematologic/Lymphatic Hematologic/Lymphatic: Denies easy bruising Allergic/Immunologic Allergic/Immunologic: Denies urticaria, Denies throat swelling and Denies wheezing [facility] Medical History Cervical dystonia (Acute) Chronic constipation (Acute) Parkinson disease (Chronic) Surgical History History of appendectomy (Acute) History of ear surgery (Acute) History of kidney surgery (Chronic) History of knee surgery (Acute) Social History household members: spouse Smoking Status: Former smoker alcohol intake: current substance use type: does not use Social History household members: spouse Smoking Status: Former smoker alcohol intake: current substance use type: does not use Exam Initial Vital Signs Initial Vital Signs: Vital Signs Temperature 98.1 F 12/11/18 16:03 Pulse Rate 80 12/11/18 16:03 Respiratory Rate 16 12/11/18 16:03 Blood Pressure 153/78 H 12/11/18 16:03 Pulse Oximetry 96 12/11/18 16:03 Const General: cooperative and well developed Nutritional Appearance: well nourished Orientation: alert, awake, oriented x3 and not confused [facility] Head: normocephalic and atraumatic Ears: external ears normal and TM's normal bilaterally Nose: external nose normal and No nasal discharge Face and sinus: sinuses nontender, face symmetric, no sinus tenderness and No dry mucous membranes Mouth: oral mucosae normal and moist mucous membranes Teeth and gingiva: dentition normal Throat: tonsils normal and uvula midline Eyes General: appearance normal, both eyes and all related structures Eyelids: eyelids normal Conjunctivae: conjunctivae normal Sclera: sclerae normal Pupils: PERRL EOM: EOM intact bilaterally Neck Neck: normal visual inspection, trachea midline, No lymphadenopathy, No midline deformity and No JVD Lymphatic: No lymphedema Chest Chest: normal inspection of the chest Resp Effort & Inspection: normal respiratory effort, able to speak in complete sentences, no respiratory distress and no use of accessory muscles Auscultation: clear to auscultation bilaterally, no rales, no rhonchi and no wheezes Cardio Rate: regular rate Rhythm: regular rhythm Heart Sounds: no click, no gallops, no murmurs and no rubs Pulses: normal peripheral pulses GI Inspection: non-distended Palpation: soft, no hepatosplenomegaly, No guarding, No pulsatile mass and No tender Auscultation: normal bowel sounds Other: The patient has a mid vertical midline incision over his abdominal wall, which is clean dry and intact. Mild, subacute ecchymosis appropriate for the recent surgical history is noted adjacent to the wound. [place] are in place. Back/Spine/Pelvis Back: No CVA tenderness Cervical Spine: cervical ROM normal and No pain with cervical ROM Thoracic/Lumbar Spine: thoracic and lumbar spine normal to inspection Skin General: no rashes or lesions noted, No jaundice and No petechiae Other: Patient has a vasculitic appearing rash involving the posterior and medial thighs bilaterally, as well as the bilateral lower abdomen. Patient has a blanching maculopapular rash on his back, which appears to be resolving. No petechiae. No bruising other than mild ecchymosis about the surgical incision. Neuro General: alert, oriented x3, gait normal and no focal motor deficits Speech: speech normal Extrem General: full ROM, no clubbing, cyanosis or edema, no pedal edema and no calf tenderness Psych Appearance: well kempt Mental Status: mental status grossly normal Attitude: cooperative Thought Content: normal and suicidality Judgment: judgment good Course Course Course Narrative: The patient was very well-appearing in the emergency department, other than generalized weakness, which he reported to have been existing for the last week. The patient was not febrile or nauseated. He reported feeling well today. The had also reported that the rash had not spread. Labs were performed, as requested by Dermatology. Normal platelets at 373, which was actually higher than the on multiple previous levels. His white blood cell count was normal at 6.7. Electrolytes were normal. GFR was greater than 60. Total bilirubin was found to be normal. AST was mildly elevated at 148, and ALT was normal. Alk phos was moderately elevated at 375. The patient had not had any progression of symptoms since yesterday, and was actually feeling fairly well. I did not feel that it was likely that the patient was having an ongoing reaction, based on his normal platelets. I did not feel he had a postoperative infection. I discussed with the patient and his that at this time, I do not find evidence of a serious condition. I have advised the patient and his that the patient will likely be slow to return to normal bowel function, and that they should expect some degree of slowing over the next week or 2. Additionally, the patient is not yet back to his normal appetite, and the decreased food intake will also impact his bowel movements. I have advised the patient and that should he develop fevers, worsening abdominal pain, nausea vomiting, or spread of the rash, he should return immediately to the emergency department. However, at this time, the patient's symptoms are stable in even improving somewhat, and I do feel he is stable for discharge home. We have performed an abdominal x-ray today to evaluate the patient's complaint of constipation/failure to have a bowel movement, and this is found to be unremarkable. Orders Ordered: ED Orders 12/11/18 16:33 BNP [B Type Natriuretic Peptide] Stat Complete Blood Count AUTO DIFF Stat Comprehensive Metabolic Panel Stat Partial Thromboplastin Time Stat Prothrombin Time INR Stat [facility] Miscellaneous Stat 12/11/18 18:51 XR abdomen min 2V Stat Discontinued Medications Carbidopa/Levodopa (Sinemet 10/100) 1 each PO NOW ONE Stop: 12/11/18 19:16 Last Admin: 12/11/18 19:35 Dose: 1 each Documented by: HFARRINGTO Vital Signs Vital signs: Vital Signs - 8 hr 12/11/18 16:03 12/11/18 19:37 Temperature 98.1 F Pulse Rate 80 75 Respiratory Rate 16 16 Blood Pressure 153/78 H Blood Pressure [Left Arm] 163/74 H Pulse Oximetry 96 96 MDM - Skin/Abscess/Foreign Bdy Medical Records Attestation: I reviewed the patient's medical records. Lab Data Attestation: I reviewed the patient's lab results. Result diagrams: 12/11/18 16:33 12/11/18 16:33 Labs: Lab Results 12/11/18 12/11/18 12/11/18 Range/Units 16:33 16:33 16:33 WBC 6.7 (4.5-11.0) X10^3/uL RBC 3.76 L (4.5-5.9) X10^6/uL Hgb 12.0 L (13.5-17.5) g/dL Hct 35.9 L (41-53) % MCV 95.5 (80-100) fL MCH 32.0 (26-34) PG MCHC 33.5 (30-36) % RDW 13.4 (11.6-14.8) % Plt Count 373 (150-400) X10^3/uL Neut % (Auto) 90.4 H (50-75) % Lymph % (Auto) 4.4 L (25-40) % [place] % (Auto) 4.5 (3-14) % Eos % (Auto) 0.3 L (2-4) % Baso % (Auto) 0.4 (0-2) % Neut # (Auto) 6000 (5412-2797) /uL Lymph # (Auto) 300 L (5306-3436) /uL [place] # (Auto) 300 (0-900) /uL Eos # (Auto) 0 (0-450) /uL Baso # (Auto) 0 (0-100) /uL PT 10.5 (10.1-12.7) SECONDS INR 0.9 (0.9-1.3) APTT 27 (26.4-36.2) SECONDS Sodium 139 (137-145) mmol/L Potassium 4.4 (3.4-5.1) mmol/L Chloride 104 (98-107) mmol/L Carbon Dioxide 28 (22-32) mmol/L BUN 17 (9-20) mg/dL Creatinine 0.70 (0.66-1.25) mg/dL Estimated GFR > 60.0 (>60) mL/min BUN/Creatinine Ratio 24.3 H (6-22) Glucose 159 H (80-110) mg/dL Calcium 8.9 (8.4-10.2) mg/dL Total Bilirubin 0.5 (0.2-1.3) mg/dL AST 148 H (17-59) IU/L ALT 46 (21-72) IU/L Alkaline Phosphatase 375 H D (38-126) U/L B-Natriuretic Peptide (<100) Total Protein 6.9 (6.3-8.2) g/dL Albumin 3.4 L (3.5-5.0) g/dL Globulin 3.5 (1.7-4.1) g/dL Albumin/Globulin Ratio 1.0 (1.0-2.8) 12/11/18 Range/Units 16:33 WBC (4.5-11.0) X10^3/uL RBC (4.5-5.9) X10^6/uL Hgb (13.5-17.5) g/dL Hct (41-53) % MCV (80-100) fL MCH (26-34) PG MCHC (30-36) % RDW (11.6-14.8) % Plt Count (150-400) X10^3/uL Neut % (Auto) (50-75) % Lymph % (Auto) (25-40) % [place] % (Auto) (3-14) % Eos % (Auto) (2-4) % Baso % (Auto) (0-2) % Neut # (Auto) (8637-1546) /uL Lymph # (Auto) (0398-7201) /uL [place] # (Auto) (0-900) /uL Eos # (Auto) (0-450) /uL Baso # (Auto) (0-100) /uL PT (10.1-12.7) SECONDS INR (0.9-1.3) APTT (26.4-36.2) SECONDS Sodium (137-145) mmol/L Potassium (3.4-5.1) mmol/L Chloride (98-107) mmol/L Carbon Dioxide (22-32) mmol/L BUN (9-20) mg/dL Creatinine (0.66-1.25) mg/dL Estimated GFR (>60) mL/min BUN/Creatinine Ratio (6-22) Glucose (80-110) mg/dL Calcium (8.4-10.2) mg/dL Total Bilirubin (0.2-1.3) mg/dL AST (17-59) IU/L ALT (21-72) IU/L Alkaline Phosphatase (38-126) U/L B-Natriuretic Peptide 184 H (<100) Total Protein (6.3-8.2) g/dL Albumin (3.5-5.0) g/dL Globulin (1.7-4.1) g/dL Albumin/Globulin Ratio (1.0-2.8) Imaging Data Abdominal x-ray: Radiologist's impression: PROCEDURE: XR ABDOMEN MIN 2V INDICATIONS: constipation TECHNIQUE: 2 views of the abdomen were acquired. COMPARISON: [facility], CR, XR ABDOMEN 3V, 12/06/2018, 8:11. FINDINGS: Surgical changes and devices: None. Bowel: No pneumoperitoneum. Previous appearance of dilated bowel loops has improved. However, scattered dilated small bowel loops persist. There is persistent appearance of significant stool throughout the colon. Soft tissues: No masses; visualized solid organ contours appear normal in size. No suspicious abdominal calcifications. Bones: No suspicious bony abnormalities. IMPRESSION: Improved although persistent appearance of partial small bowel obstruction with significant stool and constipation. Dictated by: Ching Mace M.D. on 12/11/2018 at 19:35 Approved by: Ching Mace M.D. on 12/11/2018 at 19:36 Discharge Plan Departure Patient Disposition: Home Clinical Impression: Vasculitis, History of small bowel obstruction Constipation Qualifiers: Constipation type: slow transit constipation Qualified Code(s): K59.01 - Slow transit constipation Instructions: DI for Vasculitis Activity Restrictions/Additional Instructions: Your labs overall look good. Your platelets are normal, which is a good sign, combined with the fact that you have actually felt fairly well today and have not had any worsening of your rash. At this point in time, there is no evidence of any organ dysfunction that could possibly be attributed to clot formation. If you continued to feel well, then please continue the instructions your given upon discharge. Your x-ray does show some constipation, and shows some mild dilation of your bowel loops, which is most likely related to the recent surgery. If you develop fevers, nausea or vomiting, or worsening of the rash, or if you develop worsening abdominal pain, you should return to the emergency department immediately. Otherwise, please continue your stool softeners and laxatives to help promote movement of stool through your bowels. Additionally, please eat plenty of fresh fruits and vegetables and other high-fiber foods to encourage soft stools. Please follow up with your primary care physician 1st thing next week, if possible. Please also follow up with your surgeon, as planned. Prescriptions: No Action multivitamin Capsule 1 cap PO DAILY Qty: 0 RF: 0 prednisone 20 mg tablet See Rx Instructions .ROUTE .COMPLEX RF: 0 clonazepam 0.5 mg tablet 0.5 mg PO QPM RF: 0 carbidopa-levodopa 25-100 mg tablet 1 tab PO QID RF: 0 rasagiline 1 mg tablet 1 mg PO DAILY RF: 0 ascorbic acid (vitamin C) [Vitamin C] 500 mg Tablet 500 mg PO DAILY RF: 0 docusate sodium [DOK] 100 mg Capsule 100 mg PO BID Qty: 60 RF: 0 polyethylene glycol 3350 17 gram Powder In Packet 17 gram PO DAILY Qty: 100 RF: 0 sennosides [senna] 8.6 mg tablet 8.6 mg PO DAILY PRN (Reason: constipation) Qty: 30 RF: 0 mineral oil enema 118 ml AR DAILY PRN (Reason: constipation) Qty: 6384 RF: 0 bisacodyl 10 mg suppository 10 mg AR DAILY PRN (Reason: constipation) Qty: 50 RF: 0 ibuprofen 600 mg tablet 600 mg PO Q6H PRN (Reason: pain) Qty: 20 RF: 0 triamcinolone acetonide 0.1 % ointment 1 applictn TOP DAILY Qty: 30 RF: 0 Referrals: Joel Mata MD [Primary Care Provider] -
[2018-12-11] MEDS: CARBIDOPA-LEVODOPA 10/100 TABLET 1 EACH PO (19:35)
[2018-12-11 19:37] VITALS: BP 163/74; PULSE 75; RESP 16; O2SAT 96
== END 2018-12-11 20:10 | disposition home or self-care (01) ==
PROVIDERS: Emergency Provider Emergency Medicine; PCP Internal Medicine
DX: I77.6 Arteritis, unspecified (principal); Z87.19 Personal history of other diseases of the digestive system; K59.01 Slow transit constipation
CPT/HCPCS: 36415; 74019; 80053; 83880; 85025; 85610; 85730; 86849; 99282; 99284

== ENCOUNTER → 2018-12-30 15:30 | Outpatient (CLI) | payer OTHER, MEDICARE, SELFPAY ==
[2018-12-05 16:02] VITALS: BMI 21.6
--- NOTE | 2018-12-30 15:34 | DI.MRI.S_ITS ---
PROCEDURE: MR ABDOMEN WO/W CON INDICATIONS: pancreatic mass on recent ct TECHNIQUE: Coronal HASTE, axial 2D FLASH in- and cts-du-oetlo; axial breath-hold T2 FSE with fat saturation from the hepatic dome to the iliac crests. Oblique coronal thin-slice and radial thick slab HASTE through the biliary system. Dynamic axial VIBE during administration of contrast. Post-contrast coronal VIBE or 2D FLASH with fat saturation from the hepatic dome to the iliac crests. Optional diffusion weighted imaging and ADC may be performed. COMPARISON: [facility], CT, CT ABDOMEN PELVIS W CON, 12/05/2018, 13:07. FINDINGS: Image quality: Adequate given patient difficulty holding his breath. Pancreas and biliary system: The there is a mass measuring 4.8 x 5.0 x 3.6 cm arising from the body and proximal tail of the pancreas which appears to be a dense collection of microcysts surrounding a central T2 hypointense scar. Overall intensity is slightly less compared to simple fluid. Postcontrast, there is enhancement of multiple fine septations within the mass, and delayed enhancement of the periphery of the scar. Corresponding CT imaging demonstrates a central scar to contain a punctate calcification. The lesion does not restrict diffusion. The distal pancreatic duct is slightly prominent, but smooth in morphology measuring up to 4 mm in diameter. The proximal pancreatic duct is only seen on MRCP imaging and is smooth in morphology also measuring up to 4 mm. There is a low insertion of the cystic duct, common duct which is focally ectatic measuring up to 10 mm but tapering normally. No significant intrahepatic biliary dilatation. The gallbladder is present and appears grossly normal. Solid organs: Liver is normal in size and enhancement and contains a subcentimeter left lobe cyst. Spleen is normal in size and enhancement. No adrenal nodules. Mild prominence of the bilateral extra renal pole these without definite intrinsic hydronephrosis. Multiple parapelvic cysts in the left kidney. Nodes and vessels: No retroperitoneal or mesenteric adenopathy by size criteria. Aorta and inferior vena cava are normal in size. Bowel and peritoneum: Interval resolution of dilated stomach and small bowel loops. Increased quantity of solid stool in the colon. Lung bases: No basal pleural effusions. Heart size is normal. Bones and soft tissues: No ventral hernias. Bone marrow is normal in overall signal. IMPRESSION: 1. 5.0 cm the pancreatic body/tail mass with low risk imaging features consistent with serous cystadenoma. Given the size, surgical resection should be considered, although depending on clinical situation, followup imaging at 6 month intervals could also be considered to detect development of high-risk imaging features such as significant interval growth, pancreatic ductal dilatation or suspicious enhancing nodularity or wall thickening. 2. Focal ectasia of the common bile duct is nonspecific given the lack of intrahepatic biliary dilatation. Correlate with LFTs to given clinical significance. 3. Resolution of small bowel obstruction findings with development of mild obstipation. Dictated by: Angela Sullivan M.D. on 12/30/2018 at 18:36 Approved by: Angela Sullivan M.D. on 12/30/2018 at 19:04
== END ==
PROVIDERS: Family Provider Internal Medicine; PCP Internal Medicine
DX: K86.9 Disease of pancreas, unspecified (principal); N28.1 Cyst of kidney, acquired; K76.89 Other specified diseases of liver
CPT/HCPCS: 74183; A9579

== ENCOUNTER → 2019-01-06 08:20 | Oncology outpatient (ONC) | payer OTHER, SELFPAY ==
[2018-12-05 16:02] VITALS: BMI 21.6
[2018-12-15 15:39] VITALS: BP 145/79; PULSE 78; RESP 18; TEMP 36.6; O2SAT 97
--- NOTE | 2018-12-15 16:43 | P.CONONC_ITS ---
History of Present Illness - Data of Consult Consult date: 12/15/18 Primary Care Provider: Joel Mata MD - Consult Narrative Narrative: Diagnosis: Pancreatic mass. History of present illness: Christian Sena is a 78 year old male who is referred for further evaluation of a newly diagnosed mass in the body of the pancreas. He has a history of Parkinson's and chronic constipation. He had gradually increasing constipation. He had a couple of emergency room visits. His abdominal pain increased and he had nausea and vomiting. CT scan demonstrated small bowel obstruction. He was taken to the operating room and found to have adhesions. He was also found to have a 3 cm mass in the body of the pancreas. At the time of surgery, there was no evidence of spread to the liver. There was no adenopathy. The surgeon palpated the mass and found that it was not rock hard. However because of the patient's prolonged surgery and illness, no biopsy was obtained. Postoperatively, he has been recovering slowly but he is eating. His bowels are moving. His pain has improved. Strength and energy level are improving. He did lose about 7 or 8 lb during his hospital stay but his weight has stabilized. Over the last year, he has been gradually losing about 20 lb or so. Today, he denies any pain. No shortness of breath. He does have some aspiration and cough. He has not noticed any adenopathy. He is not having any back pain. His past medical history is notable for Parkinson's and chronic constipation. He has had a prior esophageal stricture with dilation. He has had aspiration previously. He has had prior skin cancers. Social history: He is . 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 He does not smoke. He does have occasional alcohol use. Family history is notable for half brother had colon cancer. CC: John Stout MD Home Medications and Allergies Home Medications Medication Instructions Recorded Confirmed Type multivitamin 1 cap PO DAILY #0 08/01/06 12/11/18 History ascorbic acid (vitamin C) [Vitamin 500 mg PO DAILY 12/03/18 12/11/18 History C] carbidopa-levodopa 1 tab PO QID 12/03/18 12/11/18 History clonazepam 0.5 mg PO QPM 12/03/18 12/11/18 History rasagiline 1 mg PO DAILY 12/03/18 12/11/18 History bisacodyl 10 mg ND DAILY PRN #50 each 12/04/18 12/11/18 Rx docusate sodium [DOK] 100 mg PO BID #60 cap 12/04/18 12/11/18 Rx mineral oil 118 ml ND DAILY PRN #6384 ml 12/04/18 12/11/18 Rx polyethylene glycol 3350 17 gram PO DAILY #100 each 12/04/18 12/11/18 Rx sennosides [senna] 8.6 mg PO DAILY PRN #30 tab 12/04/18 12/11/18 Rx triamcinolone acetonide 1 applictn TOP DAILY #30 gram 12/10/18 12/11/18 Rx prednisone See Rx Instructions .ROUTE .COMPLEX 12/11/18 12/11/18 History Allergies Allergy/AdvReac Type Severity Reaction Status Date / Time Tetracyclines Allergy Unknown Verified 12/11/18 16:06 heparin Allergy Rash Verified 12/11/18 16:06 Medical History - Medical, Surgical, Family History Medical History: Medical History (Last Reviewed 12/11/18 @ 19:27 by Caryl Blackwell MD) Cervical dystonia Chronic constipation Parkinson disease Surgical History: Surgical History (Last Reviewed 12/11/18 @ 19:27 by Caryl Blackwell MD) History of appendectomy History of ear surgery History of kidney surgery History of knee surgery - Social History Smoking Status: Never smoker Review of Systems - Patient Self-Reported Symptoms SR Constitution: Weight loss/gain SR ears, nose, mouth, throat issues: Hoarseness SR Cardiovascular issues: Shortness of breath with activity or lying flat SR Skin issues: Dry skin, Skin rash or itching SR Gastrointestinal issues: Poor or no appetite, Change in bowel pattern, Nausea, Vomiting, Constipation, Abdominal pain SR Genitourinary issues: Frequent urination SR Musculoskeletal issues: Back or neck pain SR Neuro issues: Tremors or shaking Constitutional: weight loss, normal activity level Gastrointestinal: change in appetite, dysphagia, constipation Neurological: tremor Hematologic/Lymphatic: anemia Exam Vital signs: Vital Signs Temp Pulse Resp BP Pulse Ox 12/15/18 15:39 97.9 F 78 18 145/79 H 97 Intake and Output 12/15/18 12/15/18 12/15/18 07:59 15:59 23:59 Other: Weight 67.8 kg Patient Weight 12/15/18 23:59 Weight 67.8 kg - Constitutional positive no acute distress, positive thin - Routine HEENT Exam Head: Present: normocephalic, atraumatic Eye: Present: EOMI, PERRL. Absent: conjunctival icterus, scleral injection ENT: Present: mucous membranes moist, oropharynx clear - Routine Neck Exam Present: supple. Absent: lymphadenopathy, thyromegaly - Routine Chest/Breast/Axilla Exam Axillae: Absent: lymphadenopathy - Routine Respiratory Exam Present: Clear to auscultation bilaterally. Absent: rales, wheezes - Routine Cardiovascular Exam Present: RRR, S1, S2. Absent: murmur - Routine Abdominal Exam Present: soft, normoactive bowel sounds. Absent: tenderness, organomegaly, mass Comments: His midline surgical incision is healing well. There are still donald in place. There is no erythema or drainage. - Routine Extremities Exam Absent: cyanosis, clubbing, edema - Routine Back/Spine Exam Back/Spine: Absent: vertebral tenderness - Routine Skin Exam Present: intact. Absent: petechiae, rash - Routine Neurological Exam Present: alert, oriented X3, tremors - Routine Psychiatric Exam Present: normal affect, normal thought process Results - Imaging Additional studies: Procedures Release Ileum, Open Approach (12/05/18) Assessment and Plan (1) Pancreatic mass Current visit: Yes Status: Acute 78-year-old man with a history of bowel obstruction. He has a newly discovered 3 cm pancreatic mass but no evidence of adenopathy or liver metastasis. At the time of surgery, the mass did not feel firm. There is a CA 19 9 which is pending. No biopsy was obtained. It is possible that this may represent a ad enocarcinoma of the pancreas. It is also possible that this may represent some other finding. Will get him scheduled for an MRI pancreas protocol. I also made a referral to [facility] for a GI evaluation with potential for biopsy. He will return to clinic here after those studies.
--- NOTE | 2018-12-17 16:33 | ONC.SCHED ---
Spoke with patient and let her know I'm working on her auth for the MRI and the referral. I talked with [facility] today regarding her abd MRI and they said the reason for exam did not meet criteria for coverage. I was able to get Domonique Bach on the phone with the insurance people and they put her on hold for a transfer to a clinical person for a peer to peer review. It was about 4:30 and Domonique was holding for a while so we will try again on Friday. I called the patient to let her know but got VM so I did leave a msg. per their request.
--- NOTE | 2018-12-21 16:38 | ONC.SCHED ---
Put cpt code for referral to [facility] into [facility] and that does not require prior auth. The MRI does require prior auth, I tried to do it again today and got the 2nd denial. I will give this to Fe Ramsey and let her know they are requiring a peer to peer review for the MRI. The patient and spouse are both very anxious to get this MRI going and sitting on pins and needles were her words. I will expedite this tomorrow and hopefully we can get this approval tomorrow for them.
--- NOTE | 2018-12-22 09:46 | ONC.SCHED ---
Fax over referral to GI/[facility] for this patient and got confirmation per the order panel referral. Also, gave Dr. Stout the urgent peer to peer with all the info he needs to do it today.
--- NOTE | 2018-12-22 10:31 | ONC.MSW ---
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 was not home, spoke with pt. Explained that Dr. Stout was going to do the peer-peer today with their insurance, and that I would call them back with the determination later today or tomorrow. He expressed understanding and felt relieved that this was still moving forward.
--- NOTE | 2018-12-22 12:56 | ONC.MSW ---
Description: T/C-Re: MRI Appeal Activity: Called pt's , Roxana, to inform her that their insurance has approved the appeal for the MRI. Offered emotional support re: the anxiety that she has experienced over this. Confirmed that one of the schedulers will call her to set-up the appt. Auth#[id number] Effective: 12/21/18-02/28/19
--- NOTE | 2018-12-22 14:04 | ONC.SCHED ---
Patient is authorized for MRI now #[id number] dates 12/21/18-02/28/19. Got patient scheduled for the MRI on 12/30/18 and follow up with Dr Stout to go over the results on 01/06/19. Called patient of course to let her know the date and times.
--- NOTE | 2018-12-28 16:03 | PC.NURSE ---
[facility] REFERRAL: JULIO C Whitfield of [facility] at [phone] called to state that patient declined any scheduling for biopsy or treatment for his pancreatic mass because of worsening Parkinsons symptoms. Roseann reports him stating that he wishes only to go through with the MRI here at [facility] and then reconsult with Dr. Stout. This information communicated to Dr. Stout per this note.
--- NOTE | 2019-01-05 12:08 | ONC.SCHED ---
Patient's spouse called trying to figure out who called them today to remind them to come at 8 AM tomorrow. They have an apt. and will be coming but whoever called them upset them in that they asked if he'd had his biopsy done. They had decided to not have the biopsy until they go over the MRI with Dr. Stout tomorrow. I can't seem to figure out who called him. Possible his primary Dr. Mata.
[2019-01-06 08:18] VITALS: BP 126/76; PULSE 69; RESP 18; TEMP 36.9; O2SAT 98
--- NOTE | 2019-01-06 08:49 | ONC.PN ---
PN -Subjective Interval history: Diagnosis: Serous cystadenoma of the pancreas Previous treatment: None Interval history: The patient is a 78-year-old man who returns today for follow-up. He has a history of Parkinson's and chronic constipation. In November, he developed a bowel obstruction. He was incidentally noted to have a mass in the body or tail of the pancreas measuring about 3 cm. He required surgical treatment for his bowel obstruction and adhesions. At that time, no biopsy of the pancreas was taken. The mass was palpated. There was no evidence of adenopathy or spread to the liver. Postoperatively, the patient has been improving. He notes that his appetite has been good. He is not having any nausea or vomiting. He does still struggle with constipation but his bowels are moving. He is not having any abdominal pain. He has been able to gain back a couple of the lb that he has lost. He is active in walking and cycling. Despite this, he feels like his Parkinson's symptoms have been gradually worsening. He had been on a course of prednisone which she completed. He denies any other changes in his health. He is not taking any other new medications. - Patient Self-Reported Symptoms SR Constitution: Weight loss/gain SR ears, nose, mouth, throat issues: Hoarseness SR Cardiovascular issues: Shortness of breath with activity or lying flat SR Skin issues: Dry skin, Skin rash or itching SR Gastrointestinal issues: Constipation SR Genitourinary issues: Frequent urination SR Musculoskeletal issues: Back or neck pain SR Neuro issues: Tremors or shaking Home Medications and Allergies Home Medications Medication Instructions Recorded Confirmed Type multivitamin 1 cap PO DAILY #0 08/01/06 01/06/19 History ascorbic acid (vitamin C) [Vitamin 500 mg PO DAILY 12/03/18 12/16/18 History C] carbidopa-levodopa 1 tab PO QID 12/03/18 12/16/18 History clonazepam 0.5 mg PO QPM 12/03/18 12/16/18 History rasagiline 1 mg PO DAILY 12/03/18 01/06/19 History bisacodyl 10 mg ME DAILY PRN #50 each 12/04/18 12/16/18 Rx docusate sodium [DOK] 100 mg PO BID #60 cap 12/04/18 01/06/19 Rx mineral oil 118 ml ME DAILY PRN #6384 ml 12/04/18 01/06/19 Rx polyethylene glycol 3350 17 gram PO DAILY #100 each 12/04/18 01/06/19 Rx sennosides [senna] 8.6 mg PO DAILY PRN #30 tab 12/04/18 01/06/19 Rx Allergies Allergy/AdvReac Type Severity Reaction Status Date / Time Tetracyclines Allergy Unknown Verified 12/16/18 11:32 heparin Allergy Rash Verified 12/16/18 11:32 Exam Vital signs: Vital Signs Temp Pulse Resp BP Pulse Ox 01/06/19 08:18 98.4 F 69 18 126/76 98 Intake and Output 01/05/19 01/06/19 01/06/19 23:59 07:59 15:59 Other: Weight 67 kg Patient Weight 01/06/19 23:59 Weight 67 kg - Constitutional positive no acute distress, positive thin Comments: He is not further examined. Results - Labs CA 19 9 was normal at 12. - Imaging Additional studies: Procedures Release Ileum, Open Approach (12/05/18) MRI of the abdomen was reviewed. It showed a 3 x 5 cm mass in the body and tail of the pancreas that was consistent with a serous cystadenoma. There is no evidence of any adenopathy. There are no suspicious lesions in the liver. Assessment and Plan (1) Pancreatic mass Current visit: Yes Status: Acute 78-year-old man with a history of bowel obstruction. He has a newly discovered 3 cm pancreatic mass but no evidence of adenopathy or liver metastasis. At the time of surgery, the mass did not feel firm. There is a CA 19 9 which is normal. No biopsy was obtained. His MRI is most consistent with a serous cystadenoma. This is generally a benign finding with very low risk for malignancy. Generally, these are followed expectantly without any intervention. I have made a referral to Gastroenterology for ongoing follow-up. I do not think he notes a needs to return to Oncology unless there is evidence of growth of his mass.
--- NOTE | 2019-01-06 13:35 | ONC.SCHED ---
Patient said they didn't need to come back. I got the referral sent over to [facility] per the order panel
== END ==
PROVIDERS: PCP Internal Medicine
DX: D13.6 Benign neoplasm of pancreas (principal); G20 Parkinson's disease; K59.09 Other constipation
CPT/HCPCS: 99204; 99214

== ENCOUNTER → 2020-10-06 08:58 | Outpatient (CLI) | payer MEDICARE, BC, SELFPAY ==
[2018-12-05 16:02] VITALS: BMI 21.6
--- NOTE | 2020-10-06 09:39 | DI.CT.S_ITS ---
PROCEDURE: CT ABDOMEN PELVIS W CON INDICATIONS: Benign neoplasm of pancreas TECHNIQUE: After the administration of intravenous contrast, axial sections acquired from the lung bases to the pubic symphysis. Coronal and sagittal reformats were performed. For radiation dose reduction, the following was used: automated exposure control, adjustment of mA and/or kV according to patient size. COMPARISON: [facility], CT, CT ABDOMEN PELVIS W CON, 12/05/2018, 13:07. FINDINGS: Image quality: Excellent. Lung bases: Unremarkable. Heart: No significant findings. ABDOMEN: Liver: Unremarkable. Gallbladder: Is grossly unremarkable Biliary ducts: Unremarkable. Pancreas: The mass within the pancreatic body is increased in size measuring 15 mm by 40 mm within the axial plane. There is new mild pancreatic ductal dilatation. Spleen: Unremarkable. Adrenal Glands: Unremarkable. Kidneys and Ureters: Left kidney is grossly unremarkable. Scarring within the right interpolar and inferior pole kidney is present, as before. Stomach and Bowel: Stomach, small bowel loops, and colon are unremarkable. Peritoneum: No abnormal intraperitoneal fluid. No free air. Ventral Wall: No hernias. Abdominal Nodes: No retroperitoneal or mesenteric adenopathy by size criteria. Vessels: Aorta and inferior vena cava are normal in size. PELVIS: Pelvic Organs: Unremarkable. Bladder: Unremarkable. Pelvic Nodes: No enlarged lymph nodes. Miscellaneous: No hernias are seen. Bones: Unremarkable. IMPRESSION: 1. Increased pancreatic mass associated with new pancreatic ductal dilatation. 2. No change in right renal scarring. Dictated by: China Horta M.D. on 10/06/2020 at 11:17 Approved by: China Horta M.D. on 10/06/2020 at 11:20
== END ==
PROVIDERS: Family Provider Internal Medicine; PCP Internal Medicine; Referring Provider Internal Medicine; Visit Provider Internal Medicine
DX: D13.6 Benign neoplasm of pancreas (principal); K86.89 Other specified diseases of pancreas
CPT/HCPCS: 74177

== ENCOUNTER → 2022-12-25 08:04 | Outpatient (CLI) | payer MEDICARE, BC, SELFPAY ==
[2018-12-05 16:02] VITALS: BMI 21.6
[2022-12-25 10:57] LABS: Cholesterol 169 mg/dL (140-199); HDL Cholesterol 56 mg/dL (40-60); LDL Cholesterol Calculated 100 mg/dL (<100); Triglycerides 64 mg/dL (35-150)
== END ==
PROVIDERS: Family Provider Internal Medicine; PCP Internal Medicine; Referring Provider Physician Assistant; Visit Provider Physician Assistant
DX: E78.2 Mixed hyperlipidemia (principal)
CPT/HCPCS: 36415; 80061